=== PATIENT | female | born 1945 | race Caucasian/White ===

== ENCOUNTER 2016-12-19 09:07 | Outpatient (CLI) ==
--- NOTE | 2016-12-19 10:14 | US ---
EXAM: Renal ultrasound HISTORY: Kidney function abnormal COMPARISON: 04/11/2013 TECHNIQUE: Renal ultrasound was performed FINDINGS: Right kidney measures 4.9 x 5.0 x 10.5 cm. Left kidney measures 3.5 x 5.0 x 10.0 cm. Re nal cortical echogenicity is increased with bilateral renal cortical thinning. No hydronephrosis or renal calculus large enough to cause acoustic shadowing. Bladder is only mildly distended and poor ly evaluated, grossly unremarkable. IMPRESSION: 1. No hydronephrosis. 2. Medical renal disease.
== END 2016-12-19 09:08 | disposition home or self-care (01) ==
LOC: RAD 09:07
PROVIDERS: ATTEND Family Medicine
DX: N28.9 Disorder of kidney and ureter, unspecified (principal)
CPT/HCPCS: 76770

== ENCOUNTER 2017-07-20 11:30 | Outpatient (CLI) ==
--- NOTE | 2017-07-20 12:40 | CT ---
EXAM: CT abdomen pelvis without contrast HISTORY: Generalized abdominal pain, renal stone protocol COMPARISON: None TECHNIQUE: CT abdomen pelvis performed without intravenous contrast. Coronal and sagittal reformatt ed images obtained. FINDINGS: There is a 2 mm pulmonary nodule right lung base image 12 unchanged from 2013, consistent with benign etiology. No free air. No acute abnormalities of the bones. Degenerative change in the spine. Mild to moderate leftward curvature of the thoracolumbar spine. There are mild endplate dep ressions of the superior endplate of T11 and T12 with chronic features suggested. Heart normal in si ze. Evaluation organ parenchyma limited without contrast. Liver unremarkable. Patient status post cholecystectomy. Pancreas unremarkable. Spleen unremarkable. Adrenals unremarkable. No hydronephr osis or nephrolithiasis. No calculi visualized in the normal course of the ureters. Bladder decompr essed and poorly evaluated. Patient status post hysterectomy. Aorta normal in caliber. Moderate ath erosclerosis. Small fat-containing umbilical hernia. Moderate hiatal hernia. Duodenal diverticulum . No dilated loops small bowel. Appendix appears normal. Mild colonic diverticulosis. No lymphad enopathy in the or ascites. Small to moderate fat-containing inguinal hernias, right greater than lef t. No inflammatory stranding identified in the abdomen or pelvis IMPRESSION: 1. No hydronephrosis or nephrolithiasis. No acute inflammatory process identified in the abdomen pe lvis. 2. Mild colonic diverticulosis. Duodenal diverticulum. 3. Moderate hiatal hernia
== END 2017-07-20 11:31 | disposition home or self-care (01) ==
LOC: RAD 11:30
PROVIDERS: ATTEND Family Medicine
DX: R10.84 Generalized abdominal pain (principal)

== ENCOUNTER 2021-11-10 13:39 | Inpatient (IN) ==
[2021-11-10] MEDS ORDERED: ROCEPHIN 1 GM VIAL 1 GM in SODIUM CHLORIDE 100ML 100 ML IV STA (14:22)
[2021-11-10] MEDS ORDERED: CATAPRES PO ONE ×2 (14:22→18:59)
[2021-11-10 14:40] LABS: BASOPHILS % (AUTO) 0.4 % (0.0-3.0); EOSINOPHILS # (AUTO) 0.5 K/ul (0.0-0.7); EOSINOPHILS % (AUTO) 5.3 % (0.0-7.0); HEMATOCRIT 39.1 % (37.0-47.0); HEMOGLOBIN 12.6 g/dl (12.0-16.0); IMMATURE GRANULOCYTE % (AUTO) 0.5 % (0.0-5.0); LYMPHOCYTES # (AUTO) 2.7 K/uL (0.60-3.4); LYMPHOCYTES % (AUTO) 31.6 (10.0-50.0); MEAN CORPUSCULAR HEMOGLOBIN 27.9 pg (27.0-31.0); MEAN CORPUSCULAR HGB CONC 32.2 (31.8-35.4); MEAN CORPUSCULAR VOLUME 86.5 fl (81.0-99.0); MONOCYTES # (AUTO) 0.5 K/uL (0.4-2.0); NEUTROPHILS # (AUTO) 4.8 K/ul (2.0-6.9); NEUTROPHILS % (AUTO) 56.2 % (42.2-75.2); PLATELET COUNT 277 10^3/uL (140-440); RDW COEFFICIENT OF VARIATION 13.8 % (11.6-14.8); RED BLOOD COUNT 4.52 10^6/ul (4.20-5.40); WHITE BLOOD COUNT 8.55 K/ul (4.6-10.2)
[2021-11-10 14:46] LABS: ALANINE AMINOTRANSFERASE 18.6 U/L (0-35); ALBUMIN 3.76 g/dL (3.5-5.0); ALKALINE PHOSPHATASE 130.9 U/L (53-141); ASPARTATE AMINO TRANSFERASE 29.6 U/L (14-36); BILIRUBIN,TOTAL 0.98 mg/dL (0.2-1.3); BLOOD UREA NITROGEN 12.7 mg/dL (7-17); CALCIUM 9.89 mg/dL (8.4-10.2); CARBON DIOXIDE 26.3 mmol/L (22-30.0); CREATININE 1.07 mg/dL (0.60-1.30); GLUCOSE 131.9 mg/dL (74-106); POTASSIUM 4.08 mmol/L (3.5-5.1); SODIUM 138.2 mmol/L (134.5-145); TOTAL PROTEIN 6.49 g/dL (6.3-8.2)
[2021-11-10 14:58] LABS: TROPONIN I < 0.012 ng/ml (0.0000-0.120)
--- NOTE | 2021-11-10 15:17 | DI ---
EXAM: CHEST FRONTAL VIEW HISTORY: Chest pain COMPARISON: 08/23/2021 FINDINGS: Cardiomegaly is suggested. There is at least mild atherosclerotic disease. No acute infi ltrates are seen. No vascular congestion. There is no consolidation, visible pleural fluid or pneum othorax. Bones reveal no acute abnormality. IMPRESSION: Cardiomegaly. Atherosclerotic disease. No acute cardiopulmonary process.
--- NOTE | 2021-11-10 15:27 | CT ---
EXAM: Brain CT without contrast 11/10/2021 INDICATION: Altered mental status. COMPARISON: Brain CT dated 08/21/2021. TECHNIQUE: Unenhanced CT of the head was performed from the skull base to the vertex. FINDINGS: No intracranial hemorrhage or extra-axial collection. No mass, mass effect or midline shift. The begum -white matter differentiation is preserved. The ventricles are normal in size. There is moderate c erebral parenchymal volume loss. The basal cisterns are patent. The visualized paranasal sinuses an d mastoid air cells are clear. The orbits are unremarkable. The visualized osseous structures are u nremarkable. IMPRESSION: 1. No acute intracranial findings. 2. Moderate cerebral atrophy. All CT scans are performed using dose optimization techniques as appropriate to the performed exam an d include at least one of the following: Automated exposure control, adjustment of the mA and/or kV according t o size, and the use of iterative reconstruction technique.
[2021-11-10] MEDS ORDERED: ROCEPHIN 1 GM VIAL ONE (15:48)
[2021-11-10 15:53] LABS: BILIRUBIN,URINE Negative (NEGATIVE); CLARITY,URINE Clear (CLEAR); COLOR,URINE Yellow (YELLOW); GLUCOSE, URINE (UA) Negative (NEGATIVE); KETONES,URINE 1+ (NEGATIVE); LEUKOCYTE ESTERASE ,URINE Negative (NEGATIVE); NITRITE,URINE Negative (NEGATIVE); PH,URINE 8.5 (5-9); PROTEIN,URINE Negative (NEGATIVE); URINE, BLOOD Negative (NEGATIVE); UROBILINOGEN,URINE 0.2 (0.2)
[2021-11-10] MEDS ORDERED: ATIVAN IVP ONE ×2 (15:54→18:17)
[2021-11-10] MEDS ORDERED: TYLENOL PO PRN (16:41)
[2021-11-10] MEDS ORDERED: URO-JET MUCOUSMEMB STA (16:45)
[2021-11-10] MEDS ORDERED: LASIX TAB PO PRN (16:48)
[2021-11-10] MEDS ORDERED: HUMALOG SUBCUT SCH (17:00)
[2021-11-10] MEDS: COREG PO SCH (17:40)
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
[2021-11-10 20:16] VITALS: BMI 36.0
[2021-11-10] MEDS ORDERED: MORPHINE 2 MG/ML VIAL IVP ONE (20:39)
[2021-11-10] MEDS ORDERED: ZOFRAN 4 MG/2 ML IVP ONE (20:40)
[2021-11-10] MEDS ORDERED: NON-FORMULARY MEDICATION (Insulin Glargine 100 unit/mL Cartridge) SUBCUT SCH (21:00)
[2021-11-10] MEDS ORDERED: NEURONTIN PO SCH (21:00)
[2021-11-10] MEDS ORDERED: NON-FORMULARY MEDICATION (Gabapentin 300 mg Tablet) PO SCH (21:00)
[2021-11-10] MEDS: PLETAL PO SCH (21:03)
[2021-11-10] MEDS: LANTUS SUBCUT SCH (21:29)
[2021-11-11] MEDS ORDERED: LASIX TAB PO PRN (02:51)
[2021-11-11] MEDS ORDERED: HUMALOG SUBCUT SCH (02:52)
[2021-11-11] MEDS ORDERED: ATIVAN IVP STA ×3 (03:22→21:08)
[2021-11-11 05:56] LABS: BASOPHILS # (AUTO) 0.1 K/uL (0-0.2); BASOPHILS % (AUTO) 0.5 % (0.0-3.0); EOSINOPHILS # (AUTO) 0.5 K/ul (0.0-0.7); EOSINOPHILS % (AUTO) 4.7 % (0.0-7.0); HEMATOCRIT 37.2 % (37.0-47.0); HEMOGLOBIN 11.7 g/dl (12.0-16.0); IMMATURE GRANULOCYTE % (AUTO) 0.4 % (0.0-5.0); LYMPHOCYTES # (AUTO) 2.4 K/uL (0.60-3.4); LYMPHOCYTES % (AUTO) 25.3 (10.0-50.0); MEAN CORPUSCULAR HEMOGLOBIN 27.9 pg (27.0-31.0); MEAN CORPUSCULAR HGB CONC 31.5 (31.8-35.4); MEAN CORPUSCULAR VOLUME 88.8 fl (81.0-99.0); NEUTROPHILS # (AUTO) 5.6 K/ul (2.0-6.9); NEUTROPHILS % (AUTO) 59.1 % (42.2-75.2); PLATELET COUNT 223 10^3/uL (140-440); RDW COEFFICIENT OF VARIATION 13.9 % (11.6-14.8); RED BLOOD COUNT 4.19 10^6/ul (4.20-5.40); WHITE BLOOD COUNT 9.49 K/ul (4.6-10.2)
[2021-11-11 06:09] LABS: ALANINE AMINOTRANSFERASE 13.4 U/L (0-35); ALBUMIN 3.08 g/dL (3.5-5.0); ALKALINE PHOSPHATASE 95.3 U/L (53-141); ASPARTATE AMINO TRANSFERASE 21.2 U/L (14-36); BILIRUBIN,TOTAL 0.72 mg/dL (0.2-1.3); BLOOD UREA NITROGEN 12.9 mg/dL (7-17); CALCIUM 9.2 mg/dL (8.4-10.2); CARBON DIOXIDE 22.9 mmol/L (22-30.0); CHLORIDE 110.2 mmol/L (98-107); GLUCOSE 87.1 mg/dL (74-106); POTASSIUM 3.79 mmol/L (3.5-5.1); SODIUM 139.6 mmol/L (134.5-145); TOTAL PROTEIN 5.35 g/dL (6.3-8.2)
[2021-11-11] MEDS: PROTONIX PO SCH (06:36)
[2021-11-11] MEDS: SYNTHROID PO SCH (07:09)
[2021-11-11] MEDS: ATIVAN IVP PRN ×2 (07:52→18:23)
[2021-11-11] MEDS ORDERED: LANTUS SUBCUT SCH (09:00)
[2021-11-11] MEDS ORDERED: NON-FORMULARY MEDICATION (Aspirin 81 mg Tablet) PO SCH (09:00)
[2021-11-11] MEDS ORDERED: NON-FORMULARY MEDICATION (Insulin Glargine 100 unit/mL Cartridge) SUBCUT SCH (09:00)
[2021-11-11] MEDS ORDERED: NON-FORMULARY MEDICATION (Cholecalciferol (Vitamin D3) [Vitamin D3] 50 mcg (2,000 unit) Ca PO SCH (09:00)
[2021-11-11] MEDS ORDERED: ROCEPHIN 1 GM/50 ML D5W 1 GM/50 ML BAG IV SCH (09:00)
[2021-11-11] MEDS: ROCEPHIN 1 GM VIAL 1 GM in SODIUM CHLORIDE 100ML 100 ML IV SCH (09:04)
[2021-11-11] MEDS: NON-FORMULARY MEDICATION (Calcium-Magnesium-Zinc 333-133-5 mg Tablet) PO SCH (10:02)
[2021-11-11] MEDS: COREG PO SCH ×2 (10:02→17:16)
[2021-11-11] MEDS: ASPIRIN EC PO SCH (10:02)
[2021-11-11] MEDS: DITROPAN PO SCH (10:03)
[2021-11-11] MEDS: PLETAL PO SCH ×2 (10:05→21:14)
[2021-11-11] MEDS: NEURONTIN PO SCH ×4 (10:05→21:14)
[2021-11-11] MEDS: VITAMIN D PO SCH (10:06)
[2021-11-11] MEDS: SODIUM CHLORIDE 1,000 ML IV SCH ×2 (10:18→17:37)
[2021-11-11] MEDS: APRESOLINE PO SCH ×2 (14:36→14:42)
[2021-11-11] MEDS ORDERED: HALDOL IVP ONE (15:47)
[2021-11-11] MEDS: HYDRALAZINE HCL IVP SCH ×2 (16:13→20:34)
[2021-11-11] MEDS: DEXTROSE 5%-WATER IV SOLN 1,000 ML IV SCH (19:09)
[2021-11-11] MEDS ORDERED: GEODON IM STA (21:08)
[2021-11-11] MEDS: ELAVIL PO SCH (21:14)
[2021-11-11] MEDS: LANTUS SUBCUT SCH (21:14)
[2021-11-12] MEDS: DEXTROSE 5%-WATER IV SOLN 1,000 ML IV SCH ×3 (03:32→20:10)
[2021-11-12] MEDS: ATIVAN IVP PRN ×2 (05:16→19:22)
[2021-11-12] MEDS: PROTONIX PO SCH (05:58)
[2021-11-12] MEDS: SYNTHROID PO SCH (05:58)
[2021-11-12 06:14] LABS: BASOPHILS % (AUTO) 0.4 % (0.0-3.0); EOSINOPHILS # (AUTO) 0.3 K/ul (0.0-0.7); EOSINOPHILS % (AUTO) 3.2 % (0.0-7.0); HEMATOCRIT 37.8 % (37.0-47.0); HEMOGLOBIN 12.5 g/dl (12.0-16.0); IMMATURE GRANULOCYTE % (AUTO) 0.5 % (0.0-5.0); LYMPHOCYTES # (AUTO) 1.7 K/uL (0.60-3.4); LYMPHOCYTES % (AUTO) 20.5 (10.0-50.0); MEAN CORPUSCULAR HEMOGLOBIN 28.2 pg (27.0-31.0); MEAN CORPUSCULAR HGB CONC 33.1 (31.8-35.4); MEAN CORPUSCULAR VOLUME 85.1 fl (81.0-99.0); MONOCYTES # (AUTO) 0.7 K/uL (0.4-2.0); MONOCYTES % (AUTO) 8.9 (0-10); NEUTROPHILS # (AUTO) 5.5 K/ul (2.0-6.9); NEUTROPHILS % (AUTO) 66.5 % (42.2-75.2); PLATELET COUNT 228 10^3/uL (140-440); RDW COEFFICIENT OF VARIATION 13.6 % (11.6-14.8); RED BLOOD COUNT 4.44 10^6/ul (4.20-5.40)
[2021-11-12 06:26] LABS: ALANINE AMINOTRANSFERASE 13.9 U/L (0-35); ALBUMIN 3.51 g/dL (3.5-5.0); ALKALINE PHOSPHATASE 98.3 U/L (53-141); BILIRUBIN,TOTAL 1.27 mg/dL (0.2-1.3); BLOOD UREA NITROGEN 7.4 mg/dL (7-17); CALCIUM 8.63 mg/dL (8.4-10.2); CARBON DIOXIDE 18.7 mmol/L (22-30.0); CHLORIDE 104.8 mmol/L (98-107); CREATININE 0.71 mg/dL (0.60-1.30); GLUCOSE 237.5 mg/dL (74-106); POTASSIUM 3.58 mmol/L (3.5-5.1); SODIUM 133.5 mmol/L (134.5-145); TOTAL PROTEIN 5.9 g/dL (6.3-8.2)
[2021-11-12] MEDS: HUMALOG SUBCUT PRN ×4 (08:50→20:23)
[2021-11-12] MEDS: HYDRALAZINE HCL IVP SCH ×2 (08:51→20:40)
[2021-11-12] MEDS: ROCEPHIN 1 GM VIAL 1 GM in SODIUM CHLORIDE 100ML 100 ML IV SCH (08:51)
[2021-11-12] MEDS: ASPIRIN EC PO SCH (10:34)
[2021-11-12] MEDS: NEURONTIN PO SCH ×3 (10:34→21:00)
[2021-11-12] MEDS: DITROPAN PO SCH (10:35)
[2021-11-12] MEDS: COREG PO SCH ×2 (10:35→16:26)
[2021-11-12] MEDS: NON-FORMULARY MEDICATION (Calcium-Magnesium-Zinc 333-133-5 mg Tablet) PO SCH (10:35)
[2021-11-12] MEDS: PLETAL PO SCH ×2 (10:36→21:00)
[2021-11-12] MEDS: VITAMIN D PO SCH (10:39)
--- NOTE | 2021-11-12 12:19 | PCM.PROG ---
Date Seen by Provider: 11/12/21 Subjective: pt treated w/ geodon for agitation last night, is awake and sedate today, poor historian, hx htn, not eating Objective: Vitals: T=98.3 F, P=83, R=18, AX=993/70, SPO2=97 HEENT: []eomi Neck: []supple Lungs: [] clear CVS: []RRR Abdomen: []nontender Extremities: []warm and dry Neurological: []uncooperative Skin: []normal color Lab/Tests/Diagnostic Imaging: [] Plan: will continue iv D5W maintenance, monitor blood pressure, continue Rocephin for uti, anticipate NH placement care to Dr Godwin at 19:00
[2021-11-12] MEDS: ELAVIL PO SCH (21:00)
[2021-11-12] MEDS ORDERED: GEODON IM STA (22:07)
--- NOTE | 2021-11-12 22:15 | PCM.PROG ---
Date Seen by Provider: 11/11/21 Time Seen by Provider: 08:20 Subjective: Patient admitted by Dr weinberg for altered mental status. Previous UA suspicious for uti R/o urosepsis Discussed at bedside Objective: Vitals: T=98.8 F, P=78, R=20, ZO=650/88, SPO2=95 HEENT: Clear, RAMANDEEP-A Neck: supple Lungs: CTA-AF CVS: HRRR Abdomen: Soft nontender, neg flank or suprapubic tenderness Extremities: neg edema Neurologica_altered . non focused [] Skin: [] Lab/Tests/Diagnostic Imaging: [] (1) Altered mental status: Status: Acute Code(s): R41.82 - Altered mental status, unspecified SNOMED Code(s): 724707970 (2) UTI (urinary tract infection): Status: Acute Code(s): N39.0 - Urinary tract infection, site not specified SNOMED Code(s): 97352139 Plan: Continue Current therapy lll
[2021-11-13] MEDS ORDERED: HYDRALAZINE HCL IVP STA (00:07)
[2021-11-13] MEDS: COREG PO ONE ×2 (01:06→01:17)
[2021-11-13] MEDS ORDERED: GEODON IM STA (01:48)
[2021-11-13] MEDS: D5%-1/2NS-KCL 20 MEQ/L IV SOL 1,000 ML IV SCH ×2 (02:24→16:36)
[2021-11-13] MEDS: SYNTHROID PO SCH (05:42)
[2021-11-13] MEDS: PROTONIX PO SCH (05:42)
[2021-11-13 06:19] LABS: BASOPHILS % (AUTO) 0.5 % (0.0-3.0); HEMOGLOBIN 12.8 g/dl (12.0-16.0); IMMATURE GRANULOCYTE % (AUTO) 0.5 % (0.0-5.0); LYMPHOCYTES # (AUTO) 2.3 K/uL (0.60-3.4); MEAN CORPUSCULAR HEMOGLOBIN 28.3 pg (27.0-31.0); MEAN CORPUSCULAR HGB CONC 33.7 (31.8-35.4); MEAN CORPUSCULAR VOLUME 83.9 fl (81.0-99.0); MONOCYTES % (AUTO) 11.6 (0-10); NEUTROPHILS # (AUTO) 5.2 K/ul (2.0-6.9); NEUTROPHILS % (AUTO) 60.4 % (42.2-75.2); PLATELET COUNT 254 10^3/uL (140-440); RDW COEFFICIENT OF VARIATION 13.8 % (11.6-14.8); RED BLOOD COUNT 4.53 10^6/ul (4.20-5.40); WHITE BLOOD COUNT 8.57 K/ul (4.6-10.2)
[2021-11-13 06:31] LABS: ALANINE AMINOTRANSFERASE 13.5 U/L (0-35); ALBUMIN 3.4 g/dL (3.5-5.0); ALKALINE PHOSPHATASE 100.1 U/L (53-141); ASPARTATE AMINO TRANSFERASE 19.9 U/L (14-36); BILIRUBIN,TOTAL 0.85 mg/dL (0.2-1.3); BLOOD UREA NITROGEN 5.7 mg/dL (7-17); CALCIUM 8.97 mg/dL (8.4-10.2); CARBON DIOXIDE 22.3 mmol/L (22-30.0); CHLORIDE 106.6 mmol/L (98-107); CREATININE 0.7 mg/dL (0.60-1.30); GLUCOSE 317.9 mg/dL (74-106); POTASSIUM 3.68 mmol/L (3.5-5.1); TOTAL PROTEIN 6.01 g/dL (6.3-8.2)
[2021-11-13] MEDS: HUMALOG SUBCUT PRN ×4 (06:40→20:21)
[2021-11-13] MEDS: ROCEPHIN 1 GM/50 ML D5W 1 GM/50 ML BAG IV SCH (08:20)
[2021-11-13] MEDS: HYDRALAZINE HCL IVP SCH ×2 (08:23→20:21)
[2021-11-13] MEDS: ASPIRIN EC PO SCH (08:34)
[2021-11-13] MEDS: NON-FORMULARY MEDICATION (Calcium-Magnesium-Zinc 333-133-5 mg Tablet) PO SCH (08:35)
[2021-11-13] MEDS: COREG PO SCH ×2 (08:35→17:02)
[2021-11-13] MEDS: NEURONTIN PO SCH ×3 (08:36→20:50)
[2021-11-13] MEDS: DITROPAN PO SCH (08:36)
[2021-11-13] MEDS: PLETAL PO SCH ×2 (08:37→20:50)
[2021-11-13] MEDS: VITAMIN D PO SCH (08:37)
[2021-11-13] MEDS: ATIVAN IVP PRN ×3 (09:20→21:24)
[2021-11-13 17:00] LABS: BILIRUBIN,URINE Negative (NEGATIVE); CLARITY,URINE Clear (CLEAR); COLOR,URINE Yellow (YELLOW); GLUCOSE, URINE (UA) Negative (NEGATIVE); KETONES,URINE 3+ (NEGATIVE); LEUKOCYTE ESTERASE ,URINE 1+ (NEGATIVE); NITRITE,URINE Negative (NEGATIVE); PROTEIN,URINE 1+ (NEGATIVE); URINE, BLOOD Trace-intact (NEGATIVE); UROBILINOGEN,URINE 0.2 (0.2)
[2021-11-13 17:14] LABS: URINE RBC, MICROSCOPIC 0-2 (0-2)
[2021-11-13] MEDS: ELAVIL PO SCH (20:49)
[2021-11-13] MEDS ORDERED: PROTONIX IV IVP STA (20:56)
[2021-11-14 05:15] LABS: BASOPHILS % (AUTO) 0.4 % (0.0-3.0); EOSINOPHILS # (AUTO) 0.5 K/ul (0.0-0.7); EOSINOPHILS % (AUTO) 5.5 % (0.0-7.0); HEMATOCRIT 37.3 % (37.0-47.0); HEMOGLOBIN 12.1 g/dl (12.0-16.0); IMMATURE GRANULOCYTE # (AUTO) 0.1 (0.0-1.0); IMMATURE GRANULOCYTE % (AUTO) 0.5 % (0.0-5.0); LYMPHOCYTES # (AUTO) 2.9 K/uL (0.60-3.4); MEAN CORPUSCULAR HEMOGLOBIN 27.9 pg (27.0-31.0); MEAN CORPUSCULAR HGB CONC 32.4 (31.8-35.4); MEAN CORPUSCULAR VOLUME 86.1 fl (81.0-99.0); MONOCYTES # (AUTO) 1.1 K/uL (0.4-2.0); MONOCYTES % (AUTO) 11.4 (0-10); NEUTROPHILS # (AUTO) 4.8 K/ul (2.0-6.9); NEUTROPHILS % (AUTO) 51.2 % (42.2-75.2); PLATELET COUNT 252 10^3/uL (140-440); RDW COEFFICIENT OF VARIATION 14.1 % (11.6-14.8); RED BLOOD COUNT 4.33 10^6/ul (4.20-5.40); WHITE BLOOD COUNT 9.41 K/ul (4.6-10.2)
[2021-11-14] MEDS ORDERED: TORADOL IVP PRN (05:22)
[2021-11-14] MEDS: PROTONIX PO SCH (05:41)
[2021-11-14] MEDS: SYNTHROID PO SCH (05:41)
[2021-11-14] MEDS: ATIVAN IVP PRN ×3 (06:19→20:58)
[2021-11-14] MEDS: D5%-1/2NS-KCL 20 MEQ/L IV SOL 1,000 ML IV SCH (06:23)
[2021-11-14] MEDS: HUMALOG SUBCUT PRN ×3 (06:35→21:33)
[2021-11-14] MEDS: ASPIRIN EC PO SCH (09:45)
[2021-11-14] MEDS: HYDRALAZINE HCL IVP SCH ×2 (09:45→20:23)
[2021-11-14] MEDS: PROTONIX IV IVP SCH (09:45)
[2021-11-14] MEDS: PLETAL PO SCH ×2 (09:46→20:24)
[2021-11-14] MEDS: DITROPAN PO SCH (09:46)
[2021-11-14] MEDS: NEURONTIN PO SCH ×3 (09:46→20:24)
[2021-11-14] MEDS: VITAMIN D PO SCH (09:46)
[2021-11-14] MEDS: NON-FORMULARY MEDICATION (Calcium-Magnesium-Zinc 333-133-5 mg Tablet) PO SCH (09:46)
[2021-11-14] MEDS: COREG PO SCH ×2 (09:46→17:52)
[2021-11-14] MEDS: ROCEPHIN 1 GM/50 ML D5W 1 GM/50 ML BAG IV SCH (09:47)
--- NOTE | 2021-11-14 15:50 | PCM.PROG ---
Date Seen by Provider: 11/14/21 Time Seen by Provider: 14:10 Subjective: Nursing reports patient with decrease urinary output Not significant change in condition/ EVALUATED AT BEDSIDE EARLIER. PT AWAKE, DOES NOT FOLOW INSTRUCTION S Objective: Vitals: T=97.4 F, P=81, R=24, VN=688/93, PRH8=901 HEENT: cLEAR Neck: SUPPLE Lungs: cta CVS: HR RRR Abdomen: SOFT NON TENDER Extremities: MINIMAL MIKE ]A Neurological: AWAKE, RESPONSIVE TO STARTLED REFLEX Skin: NEG Lab/Tests/Diagnostic Imaging: [] (1) Altered mental status: Status: Acute Code(s): R41.82 - Altered mental status, unspecified SNOMED Code(s): 898664794 (2) UTI (urinary tract infection): Status: Acute Code(s): N39.0 - Urinary tract infection, site not specified SNOMED Code(s): 75523582 Plan: Contiue IV fluids. Meds for BP control and changes in mental status Discharge planning
[2021-11-14] MEDS ORDERED: SODIUM CHLORIDE 1,000 ML IV SCH (16:00)
[2021-11-14 16:16] LABS: ALANINE AMINOTRANSFERASE 14.4 U/L (0-35); ALBUMIN 3.32 g/dL (3.5-5.0); ALKALINE PHOSPHATASE 94.8 U/L (53-141); ASPARTATE AMINO TRANSFERASE 19.4 U/L (14-36); BILIRUBIN,TOTAL 0.67 mg/dL (0.2-1.3); CALCIUM 8.94 mg/dL (8.4-10.2); CHLORIDE 106.5 mmol/L (98-107); CREATININE 1.06 mg/dL (0.60-1.30); GLUCOSE 290.7 mg/dL (74-106); POTASSIUM 4.11 mmol/L (3.5-5.1); SODIUM 134.8 mmol/L (134.5-145); TOTAL PROTEIN 5.94 g/dL (6.3-8.2)
[2021-11-14] MEDS ORDERED: MORPHINE 4 MG/ML SYRINGE IVP ONE (16:45)
[2021-11-14] MEDS ORDERED: MORPHINE 2 MG/ML VIAL IVP ONE (17:30)
[2021-11-14] MEDS ORDERED: APRESOLINE PO STA (18:45)
--- NOTE | 2021-11-14 19:53 | PCM.PROG ---
Date Seen by Provider: 11/14/21 Time Seen by Provider: 17:00 Subjective: Patient awake and responsive to questioning. Inquired about her and actually requested to speak to him on the phone. Objective: Vitals: T=97.4 F, P=81, R=24, EF=264/78, CWJ4=783 HEENT: Clear. PERL_A, EOM-I Neck: supple, non tender Lungs: CTA-AF CVS: HRRRR Abdomen: Soft non tender Extremities: actively moves X4 Neurological: alert oriented to self. ask what happened to me, Seems unsure of her current location Skin: [] Lab/Tests/Diagnostic Imaging: reviewed on chart (1) Altered mental status: Status: Acute Code(s): R41.82 - Altered mental status, unspecified SNOMED Code(s): 889860839 Assessment: Suspected due to UTI. Exam reveals No focal deficit of motor function (2) UTI (urinary tract infection): Status: Acute Code(s): N39.0 - Urinary tract infection, site not specified SNOMED Code(s): 70297662 Plan: Noted poor urine output today, gave IV bolus NS; to monitor I/O, Encouraged po intake Lab in AM Called and she took the phone wood type finisher and spoke with him
[2021-11-14] MEDS: ELAVIL PO SCH (20:23)
[2021-11-14] MEDS ORDERED: LOPRESSOR ONE (20:52)
[2021-11-14] MEDS ORDERED: TYLENOL RC ONE (20:52)
[2021-11-14] MEDS: TYLENOL RC PRN (20:58)
[2021-11-14] MEDS ORDERED: LOPRESSOR IVP SCH (21:00)
[2021-11-14] MEDS ORDERED: HYDRALAZINE HCL IVP ONE (22:32)
--- NOTE | 2021-11-15 01:02 | PCM.PROG ---
Date Seen by Provider: 11/15/21 Time Seen by Provider: 00:35 Subjective: RN requested exam for further orders as recent fluid bolus previously ordered completed. Objective: Vitals: T=98.3 F, P=82, R=20, UU=840/79, SPO2=97 HEENT: eyes full motion / following / no icterus / pupils equal ,face symmetric, mouth dry, scalp non tender no nystagmus ] Neck: [supple no adenopathy nor thyroid enlargement no bruits no rigidity or pain to palpation ] Lungs: [clear bilaterally no additional abnormal sounds no retractions ] CVS: [RRR no murmur ] Abdomen: [obese / soft / nontender /BS diminished and present ] Extremities: [from upper and lower no edema warm no rash bilateral heel wraps present toes warm and normal color ] Neurological: [she follows and moves extemities but does not answer questions , repeats phrases no stammering no slurred speech no apparent facial grimacing or pain visible ] Skin: [no tenting / no rash Currently has on bilateral heel wraps RN reports no buttocks skin changes Pt admitted with black dry discoloration left heel and stage 1 right heel ] Lab/Tests/Diagnostic Imaging: [ all reviewed from admit Imaging - cardiomegaly and brain atrophy CBC good , electolytes good , no elevated ammonia , lactic normalized , TSH 5 with nl Free T 4 ] (1) Altered mental status: Status: Acute Code(s): R41.82 - Altered mental status, unspecified SNOMED Code(s): 748698221 (2) UTI (urinary tract infection): Status: Acute Code(s): N39.0 - Urinary tract infection, site not specified SNOMED Code(s): 83820110 Assessment: Hypertension Diabeted insulin dependent Bilateral heel ulcers - present on admission hypothyroid Plan: 1.D5W1/2 ns plus 20mEq kcl at 100mgl/ hr ( D5 as pt not voluntarily taking po ) 2 Am lab : CBC, CMP, BNP, Mag ,,lipids ,hgA1C, Covid ( not send out ) 3 Urine C&S tonight - pt has rizzo 4 enoxeparin 40mg sq q 24 hrs starting now for DVT prophylaxis - no hx of bleeding, admit ct neg ) on IV pantoprazole for GI 5.Neuro checks with VS q shift 6.metoprolol tartrate 2.5 mg IV q 12 hrs - hold if bp less than 110 systolic and / or less than 60 diastolic or hr less than 60 7Hydralazine 10 mg IV q 6-8 hrs IVP for systolic greater than 150 / diastolic greater than 90 6 Consider in AM working with PCP to transfer the pt to facility with neurology for further specialty evaluation 7. If transfer delayed due to EMS and / or bed availability consider the following a. swallow study b.Bilateral carotid doppler c. CT head without : ( CTA brain and neck vs mri might be ordered - patient may need some sedation while in imaging which may need to be done at a higher level facility d. patient will need repeat covid test for transfer
[2021-11-15] MEDS: LOVENOX SUBCUT SCH (01:46)
[2021-11-15] MEDS: D5%-1/2NS-KCL 20 MEQ/L IV SOL 1,000 ML IV SCH ×4 (01:52→23:36)
[2021-11-15] MEDS ORDERED: INFUVITE ADULT 10 ML in D5%-1/2NS-KCL 20 MEQ/L IV SOL 1,000 ML IV SCH (02:00)
[2021-11-15 04:26] LABS: BASOPHILS % (AUTO) 0.5 % (0.0-3.0); EOSINOPHILS # (AUTO) 0.9 K/ul (0.0-0.7); EOSINOPHILS % (AUTO) 11.2 % (0.0-7.0); HEMATOCRIT 34.5 % (37.0-47.0); HEMOGLOBIN 11.4 g/dl (12.0-16.0); IMMATURE GRANULOCYTE # (AUTO) 0.1 (0.0-1.0); IMMATURE GRANULOCYTE % (AUTO) 0.7 % (0.0-5.0); LYMPHOCYTES # (AUTO) 2.4 K/uL (0.60-3.4); LYMPHOCYTES % (AUTO) 29.5 (10.0-50.0); MEAN CORPUSCULAR HEMOGLOBIN 28.6 pg (27.0-31.0); MEAN CORPUSCULAR VOLUME 86.5 fl (81.0-99.0); MONOCYTES # (AUTO) 0.9 K/uL (0.4-2.0); MONOCYTES % (AUTO) 11.5 (0-10); NEUTROPHILS # (AUTO) 3.7 K/ul (2.0-6.9); NEUTROPHILS % (AUTO) 46.6 % (42.2-75.2); PLATELET COUNT 239 10^3/uL (140-440); RED BLOOD COUNT 3.99 10^6/ul (4.20-5.40); WHITE BLOOD COUNT 8.03 K/ul (4.6-10.2)
[2021-11-15 04:36] LABS: ALANINE AMINOTRANSFERASE 12.2 U/L (0-35); ALBUMIN 3.04 g/dL (3.5-5.0); ALKALINE PHOSPHATASE 78.9 U/L (53-141); ASPARTATE AMINO TRANSFERASE 21.1 U/L (14-36); BILIRUBIN,TOTAL 0.66 mg/dL (0.2-1.3); BLOOD UREA NITROGEN 10.4 mg/dL (7-17); CALCIUM 8.45 mg/dL (8.4-10.2); CARBON DIOXIDE 18.7 mmol/L (22-30.0); CHLORIDE 110.1 mmol/L (98-107); CHOLESTEROL 169.3 mg/dL (0-200); CREATININE 0.81 mg/dL (0.60-1.30); GLUCOSE 225.6 mg/dL (74-106); TOTAL PROTEIN 5.54 g/dL (6.3-8.2)
[2021-11-15] MEDS: TYLENOL RC PRN (04:39)
[2021-11-15] MEDS: ATIVAN IVP PRN ×2 (04:54→12:42)
[2021-11-15] MEDS: HUMALOG SUBCUT PRN ×4 (04:58→20:23)
[2021-11-15] MEDS: SYNTHROID PO SCH (05:33)
[2021-11-15] MEDS ORDERED: LOPRESSOR IVP SCH (09:00)
[2021-11-15] MEDS ORDERED: GLYCERIN SUPPOSITORY RC ONE (09:00)
[2021-11-15] MEDS: NON-FORMULARY MEDICATION (Calcium-Magnesium-Zinc 333-133-5 mg Tablet) PO SCH (09:03)
[2021-11-15] MEDS: PLETAL PO SCH (09:03)
[2021-11-15] MEDS: NEURONTIN PO SCH ×3 (09:03→20:24)
[2021-11-15] MEDS: ASPIRIN EC PO SCH (09:03)
[2021-11-15] MEDS: VITAMIN D PO SCH (09:04)
[2021-11-15] MEDS: ROCEPHIN 1 GM/50 ML D5W 1 GM/50 ML BAG IV SCH (09:07)
[2021-11-15] MEDS: LOPRESSOR IVP SCH ×2 (09:56→20:21)
[2021-11-15] MEDS: PROTONIX IV IVP SCH (09:56)
--- NOTE | 2021-11-15 10:48 | PCM.PROG ---
Date Seen by Provider: 11/15/21 Time Seen by Provider: 08:00 Subjective: Patient resting in bed awake. Denies any pain. Unable to give more history. Not oriented but is able to answer only few question with yes or no answers. Objective: Vitals: T=97.2 F, P=82, R=20, SJ=733/71, SPO2=96 HEENT: [Mucus membranes moist, Has her own teeth] Neck: [supple] Lungs: [Clinically clear bilaterally ] CVS: [Regular S1 and S2 only No S3 and No Murmurs] Abdomen: [Soft and not tender to palpation.] Extremities: [No edema noted.] Neurological: [] Skin: [Heel ulcers see nursing notes and Picture taken for details] Lab/Tests/Diagnostic Imaging: Abnormal Lab Results 11/14/21 11/15/21 11/15/21 16:00 04:10 04:10 WBC 8.03 RBC 3.99 L Hgb 11.4 L Hct 34.5 L MCV 86.5 MCH 28.6 MCHC 33.0 RDW Coeff of Afua 14.0 Plt Count 239 Immature Gran % (Auto) 0.7 Neut % (Auto) 46.6 Lymph % (Auto) 29.5 [place] % (Auto) 11.5 H Eos % (Auto) 11.2 H Baso % (Auto) 0.5 Neut # (Auto) 3.7 Lymph # (Auto) 2.4 [place] # (Auto) 0.9 Eos # (Auto) 0.9 H Baso # (Auto) 0.0 Immature Gran # (Auto) 0.1 Sodium 134.8 135.0 Potassium 4.11 4.00 Chloride 106.5 110.1 H Carbon Dioxide 22.0 18.7 L Anion Gap 10.41 10.20 BUN 10.0 10.4 Creatinine 1.06 0.81 Estimated GFR (MDRD) 50.00 69.00 BUN/Creatinine Ratio 9.43 12.83 Glucose 290.7 H 225.6 H D Hemoglobin A1c Calcium 8.94 8.45 Total Bilirubin 0.67 0.66 AST 19.4 21.1 ALT 14.4 12.2 Alkaline Phosphatase 94.8 78.9 NT-Pro-B Natriuret Pep 485.000 H Total Protein 5.94 L 5.54 L Albumin 3.32 L 3.04 L Globulin 2.62 2.50 Albumin/Globulin Ratio 1.26 1.21 Triglycerides 174.0 H Cholesterol 169.3 LDL Cholesterol, Calc 109 VLDL Cholesterol 35 H HDL Cholesterol 26.0 L Cholesterol/HDL Ratio 6.5 H 11/15/21 04:10 WBC RBC Hgb Hct MCV MCH MCHC RDW Coeff of Afua Plt Count Immature Gran % (Auto) Neut % (Auto) Lymph % (Auto) [place] % (Auto) Eos % (Auto) Baso % (Auto) Neut # (Auto) Lymph # (Auto) [place] # (Auto) Eos # (Auto) Baso # (Auto) Immature Gran # (Auto) Sodium Potassium Chloride Carbon Dioxide Anion Gap BUN Creatinine Estimated GFR (MDRD) BUN/Creatinine Ratio Glucose Hemoglobin A1c 7.06 H Calcium Total Bilirubin AST ALT Alkaline Phosphatase NT-Pro-B Natriuret Pep Total Protein Albumin Globulin Albumin/Globulin Ratio Triglycerides Cholesterol LDL Cholesterol, Calc VLDL Cholesterol HDL Cholesterol Cholesterol/HDL Ratio (1) Altered mental status: Status: Acute Code(s): R41.82 - Altered mental status, unspecified SNOMED Code(s): 948769798 Assessment: Work up has been negative so far. Likely has early Dementia due to recent Stroke with delirium Has been getting Ativan and Geodon to control some of her delirium Carotid US reviewed. since patient has no focal deficits she is unlikely to be a candidate for stent at this time especially given current mental state. (2) UTI (urinary tract infection): Status: Acute Code(s): N39.0 - Urinary tract infection, site not specified SNOMED Code(s): 23448166 Assessment: most recent Urine cultures was negative. Prior Culture on the had been positive for Klebsiella Pneumoniae Will get last dose of Rocephin today Discontinue Ludwig to prevent Ludwig acquired UTI. (3) Decubitus ulcer, heel: Status: Acute Code(s): L89.609 - Pressure ulcer of unspecified heel, unspecified stage SNOMED Code(s): 680538281 Assessment: Wound care to be provided with Collagenase on the left heel that has some slough and betadine on the right heel that is dry. Keep heels floated (4) Hypertension: Status: Acute Code(s): I10 - Essential (primary) hypertension SNOMED Code(s): 66314990 Assessment: Blood pressure controlled on current medications including Lopressor IV . Hopefully may state taking po medications. Plan: Discontinue Ludwig Discuss with son regarding discharge planning. Try one on one feeding due to poor po intake with out evidence of swallowing difficulty. Was able to swallow some water and orange luz. Will Try Mirtazapin for sleep and Apatite. Get patient out of bed daily and try to give one on one feeding. Give PRN Morphine prior to Transferring out of bed, Give PO or RC Scheduled Tylenol. 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
[2021-11-15] MEDS: TYLENOL RC SCH ×3 (11:59→23:36)
--- NOTE | 2021-11-15 12:00 | US ---
EXAM: Ultrasound bilateral carotid duplex HISTORY: Altered mental status COMPARISON: None TECHNIQUE: Sonographic and color Doppler evaluation of the carotids were performed. Garcia scale imag ing was also provided. Evaluation is difficult due to inability to stop moving. FINDINGS: The right carotid is patent in appearance with moderate atherosclerotic plaque visualized. The right ICA peak systolic velocity measures 137 cm/sec which is minimally elevated. The ICA / CCA peak systolic velocity ratio is 1.6 and ICA end-diastolic velocity is 14.5 cm/sec. The left carotid is patent in appearance with moderate atherosclerotic plaque visualized. The left ICA peak systolic velocity measures 97 cm/sec which is normal. The left ICA / CCA peak systolic velocity ratio is 0.7 and ICA end-diastolic velocity is 17.9 cm/sec. Vertebral arteries demonstrate antegrade flow bilaterally. Color Doppler and wave spectral evaluation are provided and are consistent with the areas of atherosc lerosis as described above. Garcia-scale imaging is unremarkable. IMPRESSION: 1. Calcific atherosclerotic disease of the right carotid artery with elevated velocities suggestive of moderate, 50 - 69% stenosis. 2. Atherosclerotic disease of the left carotid with no hemodynamically significant stenosis.
[2021-11-15] MEDS: TYLENOL PO ONE ×2 (12:06→13:44)
[2021-11-15] MEDS ORDERED: ZYPREXA IM ONE (14:16)
[2021-11-15] MEDS: HYDRALAZINE HCL IVP PRN (15:22)
[2021-11-15] MEDS: SANTYL TP SCH (15:22)
[2021-11-15] MEDS: MORPHINE 2 MG/ML VIAL IVP PRN (16:04)
[2021-11-15] MEDS ORDERED: MAGNESIUM SULFATE 1 GM/100 ML D5W 2 GM/200 ML BAG IV STA (17:08)
[2021-11-15] MEDS ORDERED: VASOTEC IV IVP STA (18:39)
[2021-11-15] MEDS ORDERED: MORPHINE 2 MG/ML VIAL IVP STA (18:39)
[2021-11-15] MEDS: SEROQUEL PO SCH (20:22)
[2021-11-16] MEDS: MORPHINE 2 MG/ML VIAL IVP PRN ×3 (00:03→18:11)
[2021-11-16] MEDS: ATIVAN IVP PRN ×3 (04:33→22:58)
[2021-11-16] MEDS: HYDRALAZINE HCL IVP PRN (04:33)
[2021-11-16] MEDS: TYLENOL RC SCH ×3 (05:37→18:10)
[2021-11-16] MEDS: SYNTHROID PO SCH (05:37)
[2021-11-16] MEDS: HUMALOG SUBCUT PRN ×4 (06:26→20:44)
[2021-11-16 06:58] LABS: BASOPHILS # (AUTO) 0.1 K/uL (0-0.2); BASOPHILS % (AUTO) 0.7 % (0.0-3.0); EOSINOPHILS # (AUTO) 0.8 K/ul (0.0-0.7); HEMATOCRIT 37.5 % (37.0-47.0); IMMATURE GRANULOCYTE % (AUTO) 0.6 % (0.0-5.0); LYMPHOCYTES % (AUTO) 28.7 (10.0-50.0); MEAN CORPUSCULAR HEMOGLOBIN 27.8 pg (27.0-31.0); MONOCYTES # (AUTO) 0.8 K/uL (0.4-2.0); MONOCYTES % (AUTO) 10.7 (0-10); NEUTROPHILS # (AUTO) 3.4 K/ul (2.0-6.9); NEUTROPHILS % (AUTO) 48.3 % (42.2-75.2); PLATELET COUNT 231 10^3/uL (140-440); RED BLOOD COUNT 4.31 10^6/ul (4.20-5.40); WHITE BLOOD COUNT 7.01 K/ul (4.6-10.2)
[2021-11-16 07:17] LABS: ALANINE AMINOTRANSFERASE 13.1 U/L (0-35); ALBUMIN 3.24 g/dL (3.5-5.0); ALKALINE PHOSPHATASE 90.2 U/L (53-141); BILIRUBIN,TOTAL 0.69 mg/dL (0.2-1.3); BLOOD UREA NITROGEN 7.3 mg/dL (7-17); CALCIUM 9.46 mg/dL (8.4-10.2); CARBON DIOXIDE 22.4 mmol/L (22-30.0); CHLORIDE 108.5 mmol/L (98-107); CREATININE 0.69 mg/dL (0.60-1.30); MAGNESIUM 1.38 mg/dL (1.6-2.3); POTASSIUM 4.5 mmol/L (3.5-5.1); SODIUM 136.1 mmol/L (134.5-145); TOTAL PROTEIN 5.58 g/dL (6.3-8.2)
--- NOTE | 2021-11-16 08:31 | PCM.PROG ---
Date Seen by Provider: 11/16/21 Time Seen by Provider: 08:30 Subjective: Follow up inpatient hospital care Has previousl had Carotic Duplex scan revealing:Calcific atherosclerotic disease of the right carotid artery with elevated velocities suggestive of moderate, 50 - 69% stenosis. 2. Atherosclerotic disease of the left carotid with no hemodynamically significant stenosis\. Objective: Vitals: T=98.3 F, P=92, R=18, BP=133/58, SPO2=97 HEENT: [] Neck: [] Lungs: [] CVS: [] Abdomen: [] Extremities: [] Neurological: [] Skin: [] Lab/Tests/Diagnostic Imaging: [] (1) Altered mental status: Status: Acute Code(s): R41.82 - Altered mental status, unspecified SNOMED Code(s): 794303949 (2) UTI (urinary tract infection): Status: Acute Code(s): N39.0 - Urinary tract infection, site not specified SNOMED Code(s): 25878789 (3) Decubitus ulcer, heel: Status: Acute Code(s): L89.609 - Pressure ulcer of unspecified heel, unspecified stage SNOMED Code(s): 266554385 (4) Hypertension: Status: Acute Code(s): I10 - Essential (primary) hypertension SNOMED Code(s): 00959756 Plan: Discharge planning per husbands request for placement in half-way
[2021-11-16] MEDS ORDERED: SANTYL TP SCH (09:00)
[2021-11-16] MEDS ORDERED: CATAPRES-TTS 1 TD SCH (09:00)
[2021-11-16] MEDS: LOVENOX SUBCUT SCH (09:19)
[2021-11-16] MEDS: LOPRESSOR IVP SCH ×2 (09:19→21:45)
[2021-11-16] MEDS: PROTONIX IV IVP SCH (09:19)
[2021-11-16] MEDS: D5%-1/2NS-KCL 20 MEQ/L IV SOL 1,000 ML IV SCH ×2 (10:20→20:35)
[2021-11-16] MEDS: ASPIRIN EC PO SCH (10:56)
[2021-11-16] MEDS: NON-FORMULARY MEDICATION (Calcium-Magnesium-Zinc 333-133-5 mg Tablet) PO SCH (10:57)
[2021-11-16] MEDS: NEURONTIN PO SCH ×3 (10:57→20:51)
[2021-11-16] MEDS: SANTYL TP SCH (15:31)
[2021-11-16] MEDS: SEROQUEL PO SCH (20:50)
[2021-11-17] MEDS: HYDRALAZINE HCL IVP PRN (02:40)
[2021-11-17] MEDS: MORPHINE 2 MG/ML VIAL IVP PRN ×2 (03:30→22:15)
[2021-11-17] MEDS: TYLENOL RC SCH ×4 (03:53→17:09)
[2021-11-17 04:33] LABS: BASOPHILS # (AUTO) 0.1 K/uL (0-0.2); BASOPHILS % (AUTO) 0.8 % (0.0-3.0); EOSINOPHILS # (AUTO) 0.9 K/ul (0.0-0.7); HEMATOCRIT 40.2 % (37.0-47.0); HEMOGLOBIN 12.9 g/dl (12.0-16.0); IMMATURE GRANULOCYTE % (AUTO) 0.5 % (0.0-5.0); LYMPHOCYTES # (AUTO) 2.2 K/uL (0.60-3.4); LYMPHOCYTES % (AUTO) 28.2 (10.0-50.0); MEAN CORPUSCULAR HEMOGLOBIN 27.6 pg (27.0-31.0); MEAN CORPUSCULAR HGB CONC 32.1 (31.8-35.4); MEAN CORPUSCULAR VOLUME 86.1 fl (81.0-99.0); MONOCYTES # (AUTO) 0.9 K/uL (0.4-2.0); NEUTROPHILS # (AUTO) 3.7 K/ul (2.0-6.9); NEUTROPHILS % (AUTO) 48.5 % (42.2-75.2); PLATELET COUNT 254 10^3/uL (140-440); RDW COEFFICIENT OF VARIATION 13.9 % (11.6-14.8); RED BLOOD COUNT 4.67 10^6/ul (4.20-5.40); WHITE BLOOD COUNT 7.72 K/ul (4.6-10.2)
[2021-11-17 04:52] LABS: ALANINE AMINOTRANSFERASE 15.4 U/L (0-35); ALBUMIN 3.49 g/dL (3.5-5.0); ALKALINE PHOSPHATASE 102.3 U/L (53-141); ASPARTATE AMINO TRANSFERASE 23.4 U/L (14-36); BILIRUBIN,TOTAL 0.77 mg/dL (0.2-1.3); BLOOD UREA NITROGEN 4.9 mg/dL (7-17); CALCIUM 9.52 mg/dL (8.4-10.2); CARBON DIOXIDE 22.1 mmol/L (22-30.0); CREATININE 0.65 mg/dL (0.60-1.30); GLUCOSE 284.1 mg/dL (74-106); POTASSIUM 4.66 mmol/L (3.5-5.1); SODIUM 136.1 mmol/L (134.5-145); TOTAL PROTEIN 6.11 g/dL (6.3-8.2)
[2021-11-17] MEDS: HUMALOG SUBCUT PRN ×4 (05:47→21:32)
[2021-11-17] MEDS: SYNTHROID PO SCH (05:51)
[2021-11-17] MEDS: VASOTEC IV IVP PRN (06:45)
[2021-11-17] MEDS: D5%-1/2NS-KCL 20 MEQ/L IV SOL 1,000 ML IV SCH ×2 (07:17→17:08)
--- NOTE | 2021-11-17 08:23 | PCM.PROG ---
Date Seen by Provider: 11/17/21 Time Seen by Provider: 07:35 Subjective: Pt still requiring IV BP medications and sedatives for agitation. Asleep this morning but when aroused, still confused. Will not answer questions or follow commands well . Still awaiting placement which has been difficult given her condition. Objective: Vitals: T=97 F, P=89, R=18, HA=432/94, SPO2=97 HEENT: PERRL Neck: supple Lungs: clear CVS: RRR Abdomen: soft Neurological: confused and not following commands or answering questions Lab/Tests/Diagnostic Imaging: see report (1) Altered mental status: Status: Acute Code(s): R41.82 - Altered mental status, unspecified SNOMED Code(s): 279683416 (2) UTI (urinary tract infection): Status: Acute Code(s): N39.0 - Urinary tract infection, site not specified SNOMED Code(s): 30725087 (3) Decubitus ulcer, heel: Status: Acute Code(s): L89.609 - Pressure ulcer of unspecified heel, unspecified stage SNOMED Code(s): 018438598 (4) Hypertension: Status: Acute Code(s): I10 - Essential (primary) hypertension SNOMED Code(s): 41656233 Plan: 1. Altered mental status: UTI has been address and cleared. Now appears to be a chronic issue. Pt is difficult as she will not take home oral medications. Will continue IM medications and when she is placed, she may require prn IM medications. 2. HTN: Pt continues to have elevated BP medications. On clonidine patch 0.1 and IV prn medications. Hydralazine has been used but is now on critical shortage. Will change clonidine patch to 0.2 mg and DC the hydralazine and add labetalol 20mg IV prn.
[2021-11-17] MEDS: LOVENOX SUBCUT SCH (08:39)
[2021-11-17] MEDS: LOPRESSOR IVP SCH ×2 (08:40→20:09)
[2021-11-17] MEDS: PROTONIX IV IVP SCH (08:40)
[2021-11-17] MEDS: CATAPRES-TTS 2 TD SCH (08:41)
[2021-11-17] MEDS: SANTYL TP SCH (08:49)
[2021-11-17] MEDS: ASPIRIN EC PO SCH (08:50)
[2021-11-17] MEDS: NON-FORMULARY MEDICATION (Calcium-Magnesium-Zinc 333-133-5 mg Tablet) PO SCH (08:50)
[2021-11-17] MEDS: NEURONTIN PO SCH ×3 (08:51→21:48)
[2021-11-17] MEDS: TRANDATE IVP PRN ×2 (10:14→14:45)
--- NOTE | 2021-11-17 11:40 | RS.BEDDYS ---
Subjective Date of Evaluation: 11/17/21 Date of Onset/Injury/Change in Status: 11/10/21 Diagnosis: UTI Current Level of Function: This is a 76 year old female with eight day hospital stay due to confusion and UTI. Pt has completed antibiotics however continues to refuse PO intake. NEEDLE POLISHER to assess for potential dysphagia and determine safer and least restrictive diet. Current Diet: soft and bite-sized; thin liquids Current Subjective/complaints:: Patient in bed with nursing at bedside positioning patient for PO intake. Patient responded with yes/no to simple questions regarding food/drink preferences. Patient communicated frequently, "please help, I need to pee." Patient was provided reinforcement to address her needs. General Information - General Ability to Follow Directions: Poor Is Patient able to Repeat Directions?: No Oral-Facial Assessment - Face Facial Symmetry: Symmetrical - Dental/Labial Teeth Comment: Unable to assess teeth Lips Comment: Pt pursed lips to refuse PO trials; no weakness or asymmetry observed. - Lingual Comments: patient did not attempt to complete oral motor examination. Lingual surface was not fully assessed due to pt's mentation with poor ability to follow directions. - Comments/Additional Info. Comments:: Pt was observed with dry labials. NEEDLE POLISHER did provide care to lower labial and removed dried secretions/dried skin. With automatic movements with speech productions labial and lingual function presented WFL. Food Presentation - Solids Food Presented: Pureed (via spoon) Behaviors/Comments: Pt kept lips closed with all spoon presentations. NEEDLE POLISHER offered several puree choices and pt continued to refuse PO trials. NEEDLE POLISHER could not fully assess pt's tolerance of presented food textures. - Liquids Liquid Presented: Thin (via spoon, straw) Behaviors/Comments: Pt did round labials around straw 1x. Pt did not pull liquids into oral cavity. Spoon presented and pt did not swallow presented thin liquids. ice chip was placed in oral cavity. Pt manipulated ice chip 1-2x and then allowed it to melt. No overt s/s of aspiration observed with ice chip presentation. - Recommendations: Dysphagia Evaluation Dietary Recommendations: Minced and Moist, Thin Comments:: Pt to downgrade to minced and moist diet texture to ensure safety with PO intake. Pt presented with general weakness and confusion that may interfere with safe swallowing. Dysphagia Swallow Precautions/Strategies: Sitting Upright (90 deg), Small Bites and Sips Comments:: Use safe swallowing and aspiration precautions with all PO intake. - Summary Dysphagia Evaluation Summary: At this time, NEEDLE POLISHER recommends downgrade to minced and moist diet texture. Pt presented with decreased vertical jaw movement and manipulation of ice chip, demonstrating weakness with oral phase of swallowing. For pharyngeal phase, pt demonstrated one swallow response with ice chip and LE was potentially decreased; however no overt s/s of aspiration with thin ice chip. Due to pt's limited interest in PO intake, NEEDLE POLISHER recommends; 1:1 feeding and supervision with all PO trials, oral care routine, monitor for increased chest congestion, encourage pt to swallow to reduce risks of swallow atrophy, may need dietitian consult for nutritional support; continue PO meds crushed in pudding/applesauce/yogurt. Further Therapy Indicated?: Yes Comments: To continue to assess pt's swallow function Functional Reporting G Codes: n/a Severity Impairment Rationale: n/a Short Term Goals Problem: Safe swallowing Goal #1: Re-assessment of swallow function for potential diet upgrade Goal to be met by: 11/19/21 Problem: Swallowing Goal #2: Pt to tolerate minced and moist diet with thin liquids w/o s/s of asp. Goal to be met by: 11/19/21 Snf Goals Problem: safe swallowing Goal #1: Pt tolerate safer/ least restrictive diet with min to no overt s/s of asp. Goal to be met by: 11/19/21 Plan Duration of Treatment: 1 Week Frequency of Treatment: 1-2 days Anticipated Discharge Destination: [facility] - Treatment Code (1) Dysphagia Code(s): R13.10 - Dysphagia, unspecified (2) Altered mental status Code(s): R41.82 - Altered mental status, unspecified
[2021-11-17] MEDS: ATIVAN IVP PRN ×2 (13:11→20:10)
[2021-11-17] MEDS: SEROQUEL PO SCH (21:27)
[2021-11-18] MEDS: SEROQUEL PO SCH ×2 (00:41→20:46)
[2021-11-18] MEDS: ATIVAN IVP PRN ×2 (01:57→17:50)
[2021-11-18] MEDS: VASOTEC IV IVP PRN (02:22)
[2021-11-18] MEDS: D5%-1/2NS-KCL 20 MEQ/L IV SOL 1,000 ML IV SCH ×2 (02:58→13:26)
[2021-11-18] MEDS: TYLENOL RC SCH ×4 (04:54→18:01)
[2021-11-18] MEDS: MORPHINE 2 MG/ML VIAL IVP PRN (05:46)
[2021-11-18] MEDS: HUMALOG SUBCUT PRN ×4 (06:43→20:43)
[2021-11-18] MEDS: SYNTHROID PO SCH (06:54)
[2021-11-18] MEDS: LOVENOX SUBCUT SCH (09:23)
[2021-11-18] MEDS: SANTYL TP SCH (09:36)
[2021-11-18] MEDS: NEURONTIN PO SCH ×3 (09:38→20:45)
[2021-11-18] MEDS: NON-FORMULARY MEDICATION (Calcium-Magnesium-Zinc 333-133-5 mg Tablet) PO SCH (09:38)
[2021-11-18] MEDS: ASPIRIN EC PO SCH (09:38)
[2021-11-18] MEDS: LOPRESSOR IVP SCH (09:47)
[2021-11-18] MEDS: PROTONIX IV IVP SCH (09:47)
[2021-11-18] MEDS ORDERED: ATIVAN IM PRN (19:34)
[2021-11-18] MEDS ORDERED: HALDOL IM PRN (19:34)
[2021-11-18] MEDS: ROXANOL 20 MG/ML PO PRN (22:19)
[2021-11-19] MEDS: TYLENOL RC SCH ×4 (03:25→17:36)
[2021-11-19] MEDS: SYNTHROID PO SCH (06:43)
[2021-11-19] MEDS: HUMALOG SUBCUT PRN ×4 (06:47→20:31)
[2021-11-19] MEDS: SANTYL TP SCH (08:02)
[2021-11-19] MEDS: LOVENOX SUBCUT SCH (08:03)
--- NOTE | 2021-11-19 08:19 | PCM.PROG ---
Date Seen by Provider: 11/19/21 Time Seen by Provider: 07:48 Subjective: Pt's condition remains essentially unchanged. She is unable to answer any questions or follow any commands. She did lose her IV yesterday and has been switched to po and IM medications. Still awaiting disposition. Objective: Vitals: T=98.9 F, P=95, R=16, GB=622/96, SPO2=99 HEENT: PERRL Neck: supple Lungs: clear CVS: RRR Abdomen: soft, non tender Nerological: chronically confused. Lab/Tests/Diagnostic Imaging: Stable with a Hb of 8.4 (1) Dysphagia: Status: Acute Code(s): R13.10 - Dysphagia, unspecified SNOMED Code(s): 72704927 (2) Altered mental status: Status: Acute Code(s): R41.82 - Altered mental status, unspecified SNOMED Code(s): 191663874 Plan: 1. Placement: SS has been having significant difficulty with placement. Now considering Hospice with home placement. Will await SS decision. 2. HTN: Continue clonidine and breakthru medications. 3. Agitation: Now receiving oral and IM medications as needed.
[2021-11-19] MEDS: NON-FORMULARY MEDICATION (Calcium-Magnesium-Zinc 333-133-5 mg Tablet) PO SCH (09:53)
[2021-11-19] MEDS: NEURONTIN PO SCH ×3 (09:53→20:23)
[2021-11-19] MEDS: ASPIRIN EC PO SCH (09:53)
[2021-11-19] MEDS: SEROQUEL PO SCH (20:23)
[2021-11-20] MEDS: TYLENOL RC SCH ×4 (00:04→17:42)
[2021-11-20] MEDS: ROXANOL 20 MG/ML PO PRN ×3 (04:53→23:29)
[2021-11-20] MEDS: HUMALOG SUBCUT PRN ×3 (06:10→20:12)
[2021-11-20] MEDS: SYNTHROID PO SCH (06:16)
[2021-11-20] MEDS: SANTYL TP SCH (09:55)
[2021-11-20] MEDS: NEURONTIN PO SCH ×3 (09:56→20:21)
[2021-11-20] MEDS: NON-FORMULARY MEDICATION (Calcium-Magnesium-Zinc 333-133-5 mg Tablet) PO SCH (09:56)
[2021-11-20] MEDS: ASPIRIN EC PO SCH (09:56)
[2021-11-20] MEDS: LOVENOX SUBCUT SCH (10:40)
--- NOTE | 2021-11-20 11:30 | PCM.PROG ---
Date Seen by Provider: 11/20/21 Subjective: pt DNI, do not intubate, continues altered mental status, treated for uti Objective: Vitals: T=96.2 F, P=90, R=20, QY=818/65, SPO2=95 HEENT: [][place]omi Neck: []supple Lungs: [] clear CVS: []RRR Abdomen: []soft and nontender Extremities: []no cyanosis Neurological: []alert and NAD Skin: []warm and dry, no cyanosis Lab/Tests/Diagnostic Imaging: [] (1) Dysphagia: Status: Acute Code(s): R13.10 - Dysphagia, unspecified SNOMED Code(s): 95281430 (2) Altered mental status: Status: Acute Code(s): R41.82 - Altered mental status, unspecified SNOMED Code(s): 510638968 Plan: encourage diet, evaluate for NH placement care to Dr Newman at 19:00
[2021-11-20 12:37] LABS: BASOPHILS # (AUTO) 0.1 K/uL (0-0.2); BASOPHILS % (AUTO) 1.1 % (0.0-3.0); EOSINOPHILS % (AUTO) 0.2 % (0.0-7.0); HEMOGLOBIN 13.5 g/dl (12.0-16.0); IMMATURE GRANULOCYTE # (AUTO) 0.1 (0.0-1.0); IMMATURE GRANULOCYTE % (AUTO) 0.5 % (0.0-5.0); LYMPHOCYTES % (AUTO) 32.3 (10.0-50.0); MEAN CORPUSCULAR HEMOGLOBIN 27.7 pg (27.0-31.0); MEAN CORPUSCULAR HGB CONC 31.4 (31.8-35.4); MEAN CORPUSCULAR VOLUME 88.3 fl (81.0-99.0); MONOCYTES % (AUTO) 10.7 (0-10); NEUTROPHILS # (AUTO) 5.1 K/ul (2.0-6.9); NEUTROPHILS % (AUTO) 55.2 % (42.2-75.2); PLATELET COUNT 292 10^3/uL (140-440); RDW COEFFICIENT OF VARIATION 14.1 % (11.6-14.8); RED BLOOD COUNT 4.87 10^6/ul (4.20-5.40); WHITE BLOOD COUNT 9.28 K/ul (4.6-10.2)
[2021-11-20 12:50] LABS: ALANINE AMINOTRANSFERASE 16.1 U/L (0-35); ALBUMIN 3.71 g/dL (3.5-5.0); ALKALINE PHOSPHATASE 109.2 U/L (53-141); ASPARTATE AMINO TRANSFERASE 24.4 U/L (14-36); BILIRUBIN,TOTAL 0.8 mg/dL (0.2-1.3); BLOOD UREA NITROGEN 12.2 mg/dL (7-17); CALCIUM 10.07 mg/dL (8.4-10.2); CARBON DIOXIDE 25.4 mmol/L (22-30.0); CHLORIDE 105.7 mmol/L (98-107); CREATININE 0.88 mg/dL (0.60-1.30); GLUCOSE 198.8 mg/dL (74-106); POTASSIUM 4.77 mmol/L (3.5-5.1); SODIUM 137.2 mmol/L (134.5-145); TOTAL PROTEIN 6.44 g/dL (6.3-8.2)
--- NOTE | 2021-11-20 13:38 | PCM.PROG ---
pt requests dnr and comfort care only status
--- NOTE | 2021-11-20 14:56 | PCM.PROG ---
nursing obtained iv access, will restart d5 1/2ns and continue insulin R sliding scale
[2021-11-20 15:17] LABS: BILIRUBIN,URINE 2+ (NEGATIVE); CLARITY,URINE Clear (CLEAR); COLOR,URINE Yellow (YELLOW); GLUCOSE, URINE (UA) Negative (NEGATIVE); KETONES,URINE 2+ (NEGATIVE); LEUKOCYTE ESTERASE ,URINE Trace (NEGATIVE); NITRITE,URINE Negative (NEGATIVE); PH,URINE 5.5 (5-9); PROTEIN,URINE 1+ (NEGATIVE); URINE, BLOOD Negative (NEGATIVE); UROBILINOGEN,URINE 0.2 (0.2)
[2021-11-20 15:31] LABS: SQUAMOUS EPITHELIAL CELL,UR NOT PRESENT (0-5)
[2021-11-20 15:36] LABS: YEAST,URINE 4+ (NOT PRESENT)
[2021-11-20] MEDS: SEROQUEL PO SCH (20:22)
[2021-11-20] MEDS: D5%-1/2NS-KCL 20 MEQ/L IV SOL 1,000 ML IV SCH (21:37)
[2021-11-21] MEDS: TYLENOL RC SCH ×5 (00:33→23:21)
[2021-11-21] MEDS: D5%-1/2NS-KCL 20 MEQ/L IV SOL 1,000 ML IV SCH ×3 (01:36→20:44)
[2021-11-21] MEDS: SYNTHROID PO SCH (05:35)
[2021-11-21] MEDS: HUMALOG SUBCUT PRN ×4 (06:12→20:00)
[2021-11-21 06:34] LABS: BASOPHILS % (AUTO) 0.4 % (0.0-3.0); EOSINOPHILS # (AUTO) 0.4 K/ul (0.0-0.7); EOSINOPHILS % (AUTO) 4.7 % (0.0-7.0); HEMATOCRIT 39.1 % (37.0-47.0); HEMOGLOBIN 12.5 g/dl (12.0-16.0); IMMATURE GRANULOCYTE # (AUTO) 0.1 (0.0-1.0); IMMATURE GRANULOCYTE % (AUTO) 0.7 % (0.0-5.0); LYMPHOCYTES # (AUTO) 2.9 K/uL (0.60-3.4); MEAN CORPUSCULAR HEMOGLOBIN 27.7 pg (27.0-31.0); MEAN CORPUSCULAR VOLUME 86.5 fl (81.0-99.0); NEUTROPHILS # (AUTO) 4.7 K/ul (2.0-6.9); NEUTROPHILS % (AUTO) 51.2 % (42.2-75.2); PLATELET COUNT 252 10^3/uL (140-440); RDW COEFFICIENT OF VARIATION 13.8 % (11.6-14.8); RED BLOOD COUNT 4.52 10^6/ul (4.20-5.40)
[2021-11-21 06:54] LABS: ALANINE AMINOTRANSFERASE 13.2 U/L (0-35); ALBUMIN 3.13 g/dL (3.5-5.0); ALKALINE PHOSPHATASE 91.7 U/L (53-141); ASPARTATE AMINO TRANSFERASE 20.5 U/L (14-36); BILIRUBIN,TOTAL 0.78 mg/dL (0.2-1.3); BLOOD UREA NITROGEN 15.7 mg/dL (7-17); CALCIUM 9.22 mg/dL (8.4-10.2); CARBON DIOXIDE 18.4 mmol/L (22-30.0); CHLORIDE 106.9 mmol/L (98-107); CREATININE 0.77 mg/dL (0.60-1.30); POTASSIUM 4.94 mmol/L (3.5-5.1); SODIUM 132.8 mmol/L (134.5-145); TOTAL PROTEIN 5.81 g/dL (6.3-8.2)
--- NOTE | 2021-11-21 08:28 | PCM.PROG ---
Date Seen by Provider: 11/21/21 Subjective: pt still confused, review of NH3 and head ct show nap Objective: Vitals: T=97.6 F, P=74, R=18, TN=699/75, SPO2=99 HEENT: []eomi Neck: []supple Lungs: [] clear CVS: []RRR Abdomen: []soft and nontender Extremities: []warm and dry Neurological: []alert and awake Skin: []no cyanosis Lab/Tests/Diagnostic Imaging: [] (1) Dysphagia: Status: Acute Code(s): R13.10 - Dysphagia, unspecified SNOMED Code(s): 38567444 (2) Altered mental status: Status: Acute Code(s): R41.82 - Altered mental status, unspecified SNOMED Code(s): 919983803 Plan: monistat intravag for yeast in urine, continue insulin R scale and D5w for nutrition and hydration care to Dr Mclean at 19:00
[2021-11-21] MEDS: LOVENOX SUBCUT SCH (09:16)
[2021-11-21] MEDS: ASPIRIN EC PO SCH (09:18)
[2021-11-21] MEDS ORDERED: ZOFRAN 4 MG/2 ML IVP PRN (09:42)
[2021-11-21] MEDS: NON-FORMULARY MEDICATION (Calcium-Magnesium-Zinc 333-133-5 mg Tablet) PO SCH (09:43)
[2021-11-21] MEDS: NEURONTIN PO SCH (09:43)
[2021-11-21] MEDS: SANTYL TP SCH (09:56)
[2021-11-21] MEDS: ATIVAN IVP PRN (20:01)
[2021-11-21] MEDS: SEROQUEL PO SCH (20:46)
[2021-11-22 05:09] LABS: BASOPHILS # (AUTO) 0.1 K/uL (0-0.2); BASOPHILS % (AUTO) 0.6 % (0.0-3.0); EOSINOPHILS % (AUTO) 0.1 % (0.0-7.0); HEMATOCRIT 38.7 % (37.0-47.0); HEMOGLOBIN 12.9 g/dl (12.0-16.0); IMMATURE GRANULOCYTE # (AUTO) 0.1 (0.0-1.0); IMMATURE GRANULOCYTE % (AUTO) 0.9 % (0.0-5.0); LYMPHOCYTES # (AUTO) 2.9 K/uL (0.60-3.4); LYMPHOCYTES % (AUTO) 28.1 (10.0-50.0); MEAN CORPUSCULAR HEMOGLOBIN 28.3 pg (27.0-31.0); MEAN CORPUSCULAR HGB CONC 33.3 (31.8-35.4); MEAN CORPUSCULAR VOLUME 84.9 fl (81.0-99.0); MONOCYTES # (AUTO) 1.2 K/uL (0.4-2.0); MONOCYTES % (AUTO) 11.6 (0-10); NEUTROPHILS % (AUTO) 58.7 % (42.2-75.2); PLATELET COUNT 267 10^3/uL (140-440); RDW COEFFICIENT OF VARIATION 13.8 % (11.6-14.8); RED BLOOD COUNT 4.56 10^6/ul (4.20-5.40); WHITE BLOOD COUNT 10.16 K/ul (4.6-10.2)
[2021-11-22 05:18] LABS: ALANINE AMINOTRANSFERASE 14.1 U/L (0-35); ALBUMIN 3.51 g/dL (3.5-5.0); ASPARTATE AMINO TRANSFERASE 20.3 U/L (14-36); BILIRUBIN,TOTAL 0.9 mg/dL (0.2-1.3); BLOOD UREA NITROGEN 14.2 mg/dL (7-17); CALCIUM 9.34 mg/dL (8.4-10.2); CARBON DIOXIDE 20.6 mmol/L (22-30.0); CHLORIDE 105.7 mmol/L (98-107); CREATININE 0.76 mg/dL (0.60-1.30); GLUCOSE 317.7 mg/dL (74-106); POTASSIUM 4.87 mmol/L (3.5-5.1); SODIUM 132.5 mmol/L (134.5-145); TOTAL PROTEIN 6.07 g/dL (6.3-8.2)
[2021-11-22] MEDS: D5%-1/2NS-KCL 20 MEQ/L IV SOL 1,000 ML IV SCH ×3 (05:18→17:15)
[2021-11-22] MEDS: TYLENOL RC SCH ×4 (05:20→23:31)
[2021-11-22] MEDS: HUMALOG SUBCUT PRN ×4 (05:48→21:24)
[2021-11-22] MEDS: SYNTHROID PO SCH (05:57)
[2021-11-22] MEDS: LOVENOX SUBCUT SCH (08:55)
[2021-11-22] MEDS: SANTYL TP SCH (08:55)
--- NOTE | 2021-11-22 16:55 | PCM.PROG ---
Date Seen by Provider: 11/22/21 Time Seen by Provider: 12:00 Subjective: Difficult situation, patient admitted with mental status changes. Had UTI, treated. She won't eat or drink. Has dementia. Family wants her a DNR, and would like her in a local fci. However, none will take her due to her not eating or drinking. Family not wanting a feeding tube. Needing occasional roxanol for pain control, ? source. Objective: Vitals: T=97.5 F, P=80, R=18, ZK=207/74, SPO2=96 HEENT: [Grossly WNL] Neck: [supple] Lungs: [decreased BS, clear] CVS: RRR, no m[] Abdomen: [soft] Extremities: [no acute change] Neurological: [Awake, not responsive, nothing focal.] Skin: [Grossly WNL] Lab/Tests/Diagnostic Imaging: Laboratory Results - last 24 hr 11/22/21 11/22/21 04:40 04:40 WBC 10.16 RBC 4.56 Hgb 12.9 Hct 38.7 MCV 84.9 MCH 28.3 MCHC 33.3 RDW Coeff of Afua 13.8 Plt Count 267 Immature Gran % (Auto) 0.9 Neut % (Auto) 58.7 Lymph % (Auto) 28.1 [place] % (Auto) 11.6 H Eos % (Auto) 0.1 Baso % (Auto) 0.6 Neut # (Auto) 6.0 Lymph # (Auto) 2.9 [place] # (Auto) 1.2 Eos # (Auto) 0.0 Baso # (Auto) 0.1 Immature Gran # (Auto) 0.1 Sodium 132.5 L Potassium 4.87 Chloride 105.7 Carbon Dioxide 20.6 L Anion Gap 11.07 BUN 14.2 Creatinine 0.76 Estimated GFR (MDRD) 74.00 BUN/Creatinine Ratio 18.68 Glucose 317.7 H Calcium 9.34 Total Bilirubin 0.90 AST 20.3 ALT 14.1 Alkaline Phosphatase 106.0 Total Protein 6.07 L Albumin 3.51 Globulin 2.56 Albumin/Globulin Ratio 1.37 (1) Dysphagia: Status: Acute Code(s): R13.10 - Dysphagia, unspecified SNOMED Code(s): 67600577 Assessment: Refusing to eat or drink. Does not appear to be a swallowing problem, just mental. Nutritional issue. (2) Altered mental status: Status: Acute Code(s): R41.82 - Altered mental status, unspecified SNOMED Code(s): 580840983 Assessment: Apparently a profound dementia manifestation. Work-up has been unremarkable. Plan: Discuss with family issues like feeding tubes, hospice, neurology referral, and so on.
[2021-11-22] MEDS: SEROQUEL PO SCH (20:24)
[2021-11-23] MEDS: D5%-1/2NS-KCL 20 MEQ/L IV SOL 1,000 ML IV SCH ×2 (04:13→17:02)
[2021-11-23] MEDS: TYLENOL RC SCH ×3 (05:07→17:39)
[2021-11-23] MEDS: SYNTHROID PO SCH (05:43)
[2021-11-23] MEDS: HUMALOG SUBCUT PRN ×4 (06:00→20:43)
[2021-11-23] MEDS: LOVENOX SUBCUT SCH (09:10)
[2021-11-23] MEDS: SANTYL TP SCH (09:18)
[2021-11-23] MEDS: SEROQUEL PO SCH (20:52)
[2021-11-24] MEDS: TYLENOL RC SCH ×4 (00:28→17:22)
[2021-11-24] MEDS: SYNTHROID PO SCH (05:42)
[2021-11-24] MEDS: HUMALOG SUBCUT PRN ×3 (06:16→21:07)
[2021-11-24] MEDS: CATAPRES-TTS 2 TD SCH (08:59)
[2021-11-24] MEDS: LOVENOX SUBCUT SCH (09:02)
[2021-11-24] MEDS: SANTYL TP SCH (09:19)
[2021-11-24] MEDS: SEROQUEL PO SCH (21:08)
--- NOTE | 2021-11-24 21:19 | PCM.PROG ---
Date Seen by Provider: 11/24/21 Time Seen by Provider: 12:00 Subjective: Still not verbalizing. Underlying dementia. HPI - refer to admission documents. Objective: Vitals: T=98.3 F, P=77, R=18, IH=071/81, SPO2=96 HEENT: [grossly wnl] Neck: [unchange] Lungs: [clear] CVS: [rrr no m] Abdomen: [soft] Extremities: [intact without edema] Neurological: [Very limited exam. She is awake, not able to communicate very well.] Skin: [wnl] Lab/Tests/Diagnostic Imaging: Laboratory Last Values WBC 10.16 K/ul (4.6-10.2) 11/22/21 04:40 RBC 4.56 10^6/ul (4.20-5.40) 11/22/21 04:40 Hgb 12.9 g/dl (12.0-16.0) 11/22/21 04:40 Hct 38.7 % (37.0-47.0) 11/22/21 04:40 MCV 84.9 fl (81.0-99.0) 11/22/21 04:40 MCH 28.3 pg (27.0-31.0) 11/22/21 04:40 MCHC 33.3 (31.8-35.4) 11/22/21 04:40 RDW Coeff of Afua 13.8 % (11.6-14.8) 11/22/21 04:40 Plt Count 267 10^3/uL (140-440) 11/22/21 04:40 Immature Gran % (Auto) 0.9 % (0.0-5.0) 11/22/21 04:40 Neut % (Auto) 58.7 % (42.2-75.2) 11/22/21 04:40 Lymph % (Auto) 28.1 (10.0-50.0) 11/22/21 04:40 [place] % (Auto) 11.6 (0-10) H 11/22/21 04:40 Eos % (Auto) 0.1 % (0.0-7.0) 11/22/21 04:40 Baso % (Auto) 0.6 % (0.0-3.0) 11/22/21 04:40 Neut # (Auto) 6.0 K/ul (2.0-6.9) 11/22/21 04:40 Lymph # (Auto) 2.9 K/uL (0.60-3.4) 11/22/21 04:40 [place] # (Auto) 1.2 K/uL (0.4-2.0) 11/22/21 04:40 Eos # (Auto) 0.0 K/ul (0.0-0.7) 11/22/21 04:40 Baso # (Auto) 0.1 K/uL (0-0.2) 11/22/21 04:40 Immature Gran # (Auto) 0.1 (0.0-1.0) 11/22/21 04:40 Sodium 132.5 mmol/L (134.5-145) L 11/22/21 04:40 Potassium 4.87 mmol/L (3.5-5.1) 11/22/21 04:40 Chloride 105.7 mmol/L (98-107) 11/22/21 04:40 Carbon Dioxide 20.6 mmol/L (22-30.0) L 11/22/21 04:40 Anion Gap 11.07 11/22/21 04:40 BUN 14.2 mg/dL (7-17) 11/22/21 04:40 Creatinine 0.76 mg/dL (0.60-1.30) 11/22/21 04:40 Estimated GFR (MDRD) 74.00 mL/min 11/22/21 04:40 BUN/Creatinine Ratio 18.68 11/22/21 04:40 Glucose 317.7 mg/dL (74-106) H 11/22/21 04:40 Hemoglobin A1c 7.06 (4.0-6.0) H 11/15/21 04:10 Lactic Acid 0.96 mmol/L (0.7-2.1) D 11/13/21 06:18 Calcium 9.34 mg/dL (8.4-10.2) 11/22/21 04:40 Magnesium 1.38 mg/dL (1.6-2.3) L 11/16/21 06:53 Total Bilirubin 0.90 mg/dL (0.2-1.3) 11/22/21 04:40 AST 20.3 U/L (14-36) 11/22/21 04:40 ALT 14.1 U/L (0-35) 11/22/21 04:40 Alkaline Phosphatase 106.0 U/L (53-141) 11/22/21 04:40 Ammonia < 8.7 umol/L (9-30) L 11/12/21 08:39 Troponin I < 0.012 ng/ml (0.0000-0.120) 11/10/21 13:50 NT-Pro-B Natriuret Pep 485.000 pg/mL (0-300) H 11/15/21 04:10 Total Protein 6.07 g/dL (6.3-8.2) L 11/22/21 04:40 Albumin 3.51 g/dL (3.5-5.0) 11/22/21 04:40 Globulin 2.56 11/22/21 04:40 Albumin/Globulin Ratio 1.37 11/22/21 04:40 Triglycerides 174.0 mg/dL (0-150) H 11/15/21 04:10 Cholesterol 169.3 mg/dL (0-200) 11/15/21 04:10 LDL Cholesterol, Calc 109 mmol/L 11/15/21 04:10 VLDL Cholesterol 35 mg/dL (2-30) H 11/15/21 04:10 HDL Cholesterol 26.0 mg/dL (35-80) L 11/15/21 04:10 Cholesterol/HDL Ratio 6.5 (4.5-5.5) H 11/15/21 04:10 TSH 5.660 uIU/L (0.465-4.68) H 11/11/21 10:42 Free T4 1.39 ng/dL (0.78-2.19) 11/11/21 10:42 Urine Color Yellow (YELLOW) 11/20/21 15:06 Urine Clarity Clear (CLEAR) 11/20/21 15:06 Urine pH 5.5 (5-9) 11/20/21 15:06 Ur Specific [place] >=1.030 (1.005-1.030) 11/20/21 15:06 Urine Protein 1+ (NEGATIVE) H 11/20/21 15:06 Urine Glucose (UA) Negative (NEGATIVE) 11/20/21 15:06 Urine Ketones 2+ (NEGATIVE) H 11/20/21 15:06 Urine Blood Negative (NEGATIVE) 11/20/21 15:06 Urine Nitrite Negative (NEGATIVE) 11/20/21 15:06 Urine Bilirubin 2+ (NEGATIVE) H 11/20/21 15:06 Urine Urobilinogen 0.2 (0.2) 11/20/21 15:06 Ur Leukocyte Esterase Trace (NEGATIVE) H 11/20/21 15:06 Urine Microscopic RBC 0-2 (0-2) 11/13/21 15:50 Urine Microscopic WBC 10-20 (0-2) 11/20/21 15:06 Ur Squamous Epith Cells Not present (0-5) 11/20/21 15:06 Urine Yeast 4+ (NOT PRESENT) 11/20/21 15:06 SARS CoV-2 RNA Rapid GONZALES Negative (NEGATIVE) 11/10/21 14:07 (1) Dysphagia: Status: Acute Code(s): R13.10 - Dysphagia, unspecified SNOMED Code(s): 43862026 Assessment: Patient refusing to take anything by mouth. So, not really dysphagia, but ? better term. Underlying issue is dementia. Not even receiving IVF. DNR, but should be hospice as well if family does not want to pursue something like a feeding tube. Nursing staff working with family. (2) Altered mental status: Status: Acute Code(s): R41.82 - Altered mental status, unspecified SNOMED Code(s): 753982631 Assessment: Dementia is the diagnosis for the AMS. Minor UTI treated. Plan: 1. Lack of nutrition/dysphagia - family needs to decide OSMAN whether to go with hospice, or feeding tube. Local nursing homes are reluctant to take this patient. 2. AMS - as best can determine, a manifestation of dementia. Not taking po med. Need family decision on management for this chronic problem.
[2021-11-25] MEDS: TYLENOL RC SCH ×4 (00:09→17:33)
[2021-11-25] MEDS: SYNTHROID PO SCH (05:53)
[2021-11-25] MEDS: ROXANOL 20 MG/ML PO PRN ×2 (06:07→11:11)
[2021-11-25] MEDS: LOVENOX SUBCUT SCH (08:24)
[2021-11-25] MEDS: SANTYL TP SCH (08:24)
--- NOTE | 2021-11-25 11:59 | PCM.PROG ---
Date Seen by Provider: 11/23/21 Time Seen by Provider: 13:10 Subjective: Patient resting in bed, eyes open without ocular response to stimulation. Does not follow command, offer verbal response. Emesis earlier today/ Case mgt Trina present and give updated report on attempts to do discharge planning to rehab facility -unsuccessful attempts due no beds Objective: Vitals: T=97.6 F, P=82, R=20, ER=992/67, SPO2=96 HEENT: Clear ; RAMANDEEP-A/ EOM-I Neck: Supple Lungs: CTA-AF CVS: HR S1s2 Abdomen: Soft non tender Extremities: neg Neurological: non verbal, does not follw commands Skin:neg Lab/Tests/Diagnostic Imaging: [] (1) Dysphagia: Status: Acute Code(s): R13.10 - Dysphagia, unspecified SNOMED Code(s): 96950685 (2) Altered mental status: Status: Acute Code(s): R41.82 - Altered mental status, unspecified SNOMED Code(s): 210812988 Plan: Discharge planning -continued attempt to make arrangements for transfer/ Discuss with
--- NOTE | 2021-11-25 12:55 | PCM.PROG ---
Date Seen by Provider: 11/25/21 Time Seen by Provider: 10:45 Subjective: Staff reports patient remains stable, taking minimal oral intake. At beside patient awake, makes eye movement spontaneously, squeezing hands with direction , EOM upon volition but not to direction./ Refuse to take sips of fluid from her water container- looks suspicious when instructing to take a drink Objective: Vitals: T=97.6 F, P=82, R=20, QM=754/67, SPO2=96 HEENT: Clear Neck: supple Lungs: CTA CVS: HRRRR Abdomen: Soft non tender Extremities: Neg edema Neurological: Awake follows some commands Skin: [] Lab/Tests/Diagnostic Imaging: [] (1) Dysphagia: Status: Acute Code(s): R13.10 - Dysphagia, unspecified SNOMED Code(s): 60293128 (2) Altered mental status: Status: Acute Code(s): R41.82 - Altered mental status, unspecified SNOMED Code(s): 230846519 Plan: PT/OT eval -tx Dsge planning -to discuss with family if they come to hospital today Discussed [facility] case mgt
--- NOTE | 2021-11-25 13:18 | RS.PTINEVL ---
Subjective - Patient information Date of Evaluation: 11/25/21 Date of Arrival on Unit: 11/10/21 Admitted From:: Home Diagnosis: UTI, altered mental status Usual Living Arrangement: With Spouse Home Environment: House Medical History: Hypertension, Dementia, Diabetes Medical History Comments:: L ankle injury Surgical History: Hysterectomy Medications: see chart Subjective Information/ Patient Comments:: pt is alert follows staff with eyes, pt answers some questions by head nodding. pt does state a few words. pt follows commands approx 15% or less. - Level of function Abilities prior to this admission: family not available to answer questions. pt was living at home with prior to admission. Current Level of Function: Dependent Current Equipment Used at Home: Walker, power chair, lift chair, hospital bed Interventions - Objective Patient Orientation: Person (pt looks at therapist when her name is called) Observation: pt with dressings to B heels pt with pressure ulcers B heels Range of Motion - ROM Right Upper Extremity AROM: WFL's Left Upper Extremity AROM: WFL's Right Lower Extremity AROM: Slight limitation Left Lower Extremity AROM: Slight limitation (decreased ankle DF.) Muscle Strength - Muscle Strength Comments:: unable to MMT due to pt is resistive to ROM and unable to follow commands for MMT. Sensation - Sensation Comments: Difficult to assess due to cognitive deficits Palpation Palpation Findings: None/Normal Balance - Sitting Balance and Reactions Static Sitting Balance: Poor Dynamic Sitting Balance: Zero Sitting Equilibrium Reactions: Absent Left, Absent Right Sitting Protective Reactions: Absent Left, Absent Right - Comments Balance Assessment Comments: pt attempts to hold herself up at side of bed, pt pushes backward and is resistant to attempts to sit pt more upright. pt requires mod to max of 2 to maintain sitting at side of bed. pt extends LE's. Functional Mobility - Bed Mobility Rolling R/L: Max Assist, 2 person assist Scooting: Max Assist, 2 person assist Supine to Sit: Max Assist, 2 person assist Sit to Supine: Max Assist, 2 person assist Comments:: pt sat at side of bed, required constant cueing to lean forward and mod to max of 1-2 to maintain sitting. - Safety Awareness Safety Awareness: Poor FRAN INDEX SCORE: n/a Treatment time - Time with patient Length of Evaluation: 21 Total treatment time: 27 Patient Education - Education Patient Education: Activity Modification Teaching Recipient: Patient Teaching Methods: Discussion Comments: attempted to discuss POC with patient. Difficult to assess what pt understands. Discussed with Trina Liang RNcapacity planning manager regarding that recommend nursing continue to use lift to transfer bed to/from chair. Assessment - Assessment Problem List:: Decreased level of function, Requires training/education, Decreased safety/Risk of falls, Weakness, Cognitive status limits abilities Rehab Potential: Fair (fair to poor) Further Therapy Indicated?: Yes Candidate for Swing Bed for Therapy Services?: Feel pt will require LTC for any rehab due to cognitive deficits limit progress with therapy. Evaluation Complexity: HISTORY: Medium, EXAM OF BODY SYSTEMS: Medium, CLINICAL PRESENTATION: Medium, CLINICAL DECISION MAKING: Medium Patient's Goal(s): pt unable to express Short Term Goals GOAL #1: pt demonstrate rolling with bedrails mod x 2 Goal to be met by: 11/28/21 GOAL #2: pt able to sit at side of bed without pushing backward w mod x 1 Goal to be met by: 11/28/21 GOAL #3: pt able to sit at side of bed x 2 mins w mod x 1 Goal to be met by: 11/28/21 GOAL #4: pt follow commands 50% of time Goal to be met by: 11/28/21 [facility] Goals GOAL #1: pt transfer sup to/from sit min x1 Goal to be met by: 11/30/21 GOAL #2: Rolling with bedrails min x 1 Goal to be met by: 11/30/21 GOAL #3: pt able to sit at side of bed and maintain balance with min x 1 Goal to be met by: 11/30/21 Plan Plan of Care: Therapeutic EX, Neuromuscular Re-Educ, Therapeutic Activity Frequency of Treatment: 1-2 X day, as tolerated Duration of Treatment: 5 days Anticipated Discharge Destination: undetermined Treatment Diagnosis (ICD 10 Codes): balance impaired R 26.81. weakness M62.81 Has the Physician been added for Co-signature?: Yes
[2021-11-25 14:35] VITALS: BP 145/81; TEMP 98.1
--- NOTE | 2021-11-25 14:45 | ED.PDOC ---
General ED Provider: Dr. FATOUMATA BAEZ Chief Complaint: Altered Mental Status Stated Complaint: Admitted to hospital with above problems. See Initial H&P Time Seen by Provider: 11/10/21 13:45 Mode of Arrival: Stretcher Information Source: Family Primary Care Provider: FATOUMATA PEÑALOZA Nursing and Triage Documentation Reviewed and Agree: Yes Does patient meet sepsis criteria?: Yes If yes, has appropriate treatment been initiated?: Yes System Inflammatory Response Syndrome: Acutely Altered Mental Status Sepsis Protocol: For patient's 13 years and over: Temp is 96.8 and below OR 101 and greater Pulse >90 BPM Resp >20/minute Acutely Altered Mental Status Are patient's symptoms suggestive of a new infection, such as: -Pneumonia -Skin, Soft Tissue -Endocarditis -UTI -Bone, Joint Infection -Implantable Device -Acute Abdominal Infection -Wound Infection -Meningitis -Blood Stream Catheter Infection -Unknown Neurological Complaint Exam Altered Mental Status Complaint/Exam Current Mental Status: Confusion and Agitation Last Known Well: 2 -3 weeks Onset: Sudden Symptoms Are: Still present Timing: Constant Episodes Lasting: Hours Initial Severity: Moderate Current Severity: Moderate Eye Deviation Present: No Character: Reports Confusion, Agitation, Responsiveness and Lethargy Alleviating: Reports None Associated Signs and Symptoms: Reports Weakness Cardiac Risk Factors: Reports Hypertension CVA Risk Factors: Reports Hypertension Related Surgical History: Reports None Carotid Bruit Present: No Nystagmus Present: No Gag Reflex Present: Yes Meningeal Signs Positive: No Focal Sensory Loss: Present None Gait: Unable [id number]: Abnormal right and Abnormal left Babinski Sign: Negative Right and Negative Left Heel to Toe Normal: No Signs of Injury: Present Normal findings Thrombolytics Considered: No Differential Diagnoses: Hypoxia, Injury, Metabolic Disorder, Medication reaction and CVA Neurological Deficit Complaint/Exam Patient Complains of: Reports Muscle weakness Symptom Onset Unknown: Yes Character: Reports Paresthesia, Motor weakness and Impaired speech Aggravating: Reports Stress and Hypertension Alleviating: Reports None Associated Signs and Symptoms: Reports Responsiveness and Recent illness Related History: Denies Similar episode or Anticoagulant therapy CVA Risk Factors: Reports Diabetes and Hypertension SDH Risk Factors: Reports Elderly Related Surgical History: Reports None Carotid Bruit Present: No Focal Weakness: Present RLE and LLE Focal Sensory Loss: Absent None, RUE, LUE, RLE, LLE, Right facial or Left facial Gait: Unable Nystagmus Present: No Gag Reflex Present: Yes Babinski Sign: Negative Right and Negative Left Signs of Trauma: No Review of Systems Review Of Systems Constitutional: Reports Malaise and Weakness Respiratory: Reports Cough, Short of air and Wheezing Cardiac: Reports No symptoms GI: Reports No symptoms : Reports No symptoms Musculoskeletal: Reports No symptoms Skin: Reports No symptoms Neurological: Reports Anxiety Endocrine: Reports No symptoms All Other Systems: Reviewed and Negative [facility] Medical History (Updated 11/25/21 @ 14:45 by FATOUMATA BAEZ DO) Diabetes Hyperlipidemia Hypertension Left ankle injury Family History Other Diabetes Hypertension Social History Smoking and tobacco status: Never smoker Alcohol intake: former Surgical History (Updated 11/17/21 @ 11:40 by EMY WAN) H/O: hysterectomy Female Reproductive History Menstrual Hx Hysterectomy: Yes Physical Exam Physical Exam Appearance: Reports Ill-appearing Ill-appearing: Mild Pain Distress: Not Applicable Eyes: Reports RAMANDEEP, EOMI and Conjunctiva clear ENT: Reports Ears normal and Nose normal Neck: Supple Respiratory: Reports Airway patent and Breath sounds clear Cardiovascular: Reports RRR and Pulses normal GI/: Reports Soft, Nontender and No masses Musculoskeletal: Reports Normal strength and No calf tenderness Skin: Reports Warm, Dry and Normal color Neurological: Reports Sensation intact, Motor intact, Cranial nerves intact, Alert, Disoriented, Alert to verbal and Alert to pain Psychiatric: Reports Anxious and Depressed Critical Care Note Critical Care Note Total Critical Care Time (mins): 30 Course Course Hematology/Chemistry: 11/22/21 04:40 11/22/21 04:40 Orders, Labs, Meds: Lab Review 11/10/21 11/10/21 11/10/21 13:40 13:50 13:50 WBC 8.55 RBC 4.52 Hgb 12.6 Hct 39.1 MCV 86.5 MCH 27.9 MCHC 32.2 RDW Coeff of Afua 13.8 Plt Count 277 Immature Gran % (Auto) 0.5 Neut % (Auto) 56.2 Lymph % (Auto) 31.6 [place] % (Auto) 6.0 Eos % (Auto) 5.3 Baso % (Auto) 0.4 Neut # (Auto) 4.8 Lymph # (Auto) 2.7 [place] # (Auto) 0.5 Eos # (Auto) 0.5 Baso # (Auto) 0.0 Immature Gran # (Auto) 0.0 Sodium 138.2 Potassium 4.08 Chloride 105.0 Carbon Dioxide 26.3 Anion Gap 10.98 BUN 12.7 Creatinine 1.07 Estimated GFR (MDRD) 50.00 BUN/Creatinine Ratio 11.86 Glucose 131.9 H Lactic Acid Calcium 9.89 Total Bilirubin 0.98 AST 29.6 ALT 18.6 Alkaline Phosphatase 130.9 Troponin I < 0.012 Total Protein 6.49 Albumin 3.76 Globulin 2.73 Albumin/Globulin Ratio 1.37 Urine Color Yellow Urine Clarity Clear Urine pH 8.5 Ur Specific [place] 1.020 Urine Protein Negative Urine Glucose (UA) Negative Urine Ketones 1+ H Urine Blood Negative Urine Nitrite Negative Urine Bilirubin Negative Urine Urobilinogen 0.2 Ur Leukocyte Esterase Negative SARS CoV-2 RNA Rapid GONZALES 11/10/21 11/10/21 14:07 14:43 WBC RBC Hgb Hct MCV MCH MCHC RDW Coeff of Afua Plt Count Immature Gran % (Auto) Neut % (Auto) Lymph % (Auto) [place] % (Auto) Eos % (Auto) Baso % (Auto) Neut # (Auto) Lymph # (Auto) [place] # (Auto) Eos # (Auto) Baso # (Auto) Immature Gran # (Auto) Sodium Potassium Chloride Carbon Dioxide Anion Gap BUN Creatinine Estimated GFR (MDRD) BUN/Creatinine Ratio Glucose Lactic Acid 2.77 H Calcium Total Bilirubin AST ALT Alkaline Phosphatase Troponin I Total Protein Albumin Globulin Albumin/Globulin Ratio Urine Color Urine Clarity Urine pH Ur Specific [place] Urine Protein Urine Glucose (UA) Urine Ketones Urine Blood Urine Nitrite Urine Bilirubin Urine Urobilinogen Ur Leukocyte Esterase SARS CoV-2 RNA Rapid GONZALES Negative Orders Category Date Time Status EKG-(ED ONLY) Stat CARDIO 11/10/21 14:22 Completed INCISION/WOUND CARE DAILY CARE 11/10/21 18:00 Active INTAKE & OUTPUT Q8HR CARE 11/10/21 16:26 Active IP: INSERT SALINE LOCK ONCE CARE 11/10/21 16:26 Active VITAL SIGNS Q8HR CARE 11/10/21 16:26 Active Ludwig [ED CATHETER INSERTION AND CARE] .ONCE EMERGENCY 11/10/21 16:45 Completed CBC W/ AUTO DIFF DAILY@0600 LAB 11/11/21 05:30 Completed CBC W/ AUTO DIFF DAILY@0600 LAB 11/12/21 06:05 Completed CBC W/ AUTO DIFF Stat LAB 11/10/21 13:50 Completed COMPREHENSIVE METABOLIC PANEL DAILY@0600 LAB 11/11/21 05:30 Completed COMPREHENSIVE METABOLIC PANEL DAILY@0600 LAB 11/12/21 06:05 Completed COMPREHENSIVE METABOLIC PANEL Stat LAB 11/10/21 13:50 Completed LACTIC ACID Stat LAB 11/10/21 14:43 Completed TROPONIN I Stat LAB 11/10/21 13:50 Completed URINALYSIS C & S IF INDICATED Stat LAB 11/10/21 13:40 Completed Aspirin [Aspirin EC] MEDS 11/11/21 08:30 Hold 81 mg PO DAILYWM Carvedilol [Coreg] MEDS 11/10/21 17:00 Hold 25 mg PO BIDWM Ceftriaxone 1 gm Vial [Rocephin 1 gm Vial] MEDS 11/10/21 15:48 Discontinued 1 gm .ROUTE .STK-MED ONE Ceftriaxone 1 gm Vial [Rocephin 1 gm Vial] 1 gm MEDS 11/11/21 09:00 Discontinued 0.9 % Sodium Chloride [Sodium Chloride 100Ml] 100 ml IV DAILY Ceftriaxone 1 gm Vial [Rocephin 1 gm Vial] 1 gm MEDS 11/10/21 14:22 Discontinued 0.9 % Sodium Chloride [Sodium Chloride 100Ml] 100 ml IV ONCE Cholecalciferol (Vitamin D3) [Vitamin D] MEDS 11/11/21 09:00 Discontinued 2,000 unit PO DAILY Cilostazol [Pletal] MEDS 11/10/21 21:00 Discontinued 50 mg PO BID Clonidine HCl [Catapres] MEDS 11/10/21 14:22 Discontinued 0.2 mg PO ONCE ONE Furosemide [Lasix Tab] MEDS 11/10/21 16:48 Discontinued 40 mg PO 3 TIMES PER WEEK PRN Gabapentin [Neurontin] MEDS 11/10/21 21:00 Discontinued 300 mg PO TID Insulin Glargine,Hum.rec.anlog [Lantus] MEDS 11/11/21 09:00 Hold 30 unit SUBCUT DAILY Insulin Glargine,Hum.rec.anlog [Lantus] MEDS 11/10/21 21:00 Hold 35 unit SUBCUT BEDTIME Insulin Lispro [Humalog] MEDS 11/10/21 17:00 Discontinued DOSE unit SUBCUT DIRECTED Levothyroxine Sodium [Synthroid] MEDS 11/11/21 06:30 Active 50 mcg PO QDAC Lidocaine (Uro-Jet) [Uro-Jet] MEDS 11/10/21 16:45 Discontinued 10 ml MUCOUSMEMB ONCE STA Lorazepam [Ativan] MEDS 11/10/21 15:54 Discontinued 0.5 mg IVP ONCE ONE Oxybutynin Chloride [Ditropan] MEDS 11/11/21 09:00 Hold 5 mg PO DAILY Pantoprazole Sodium [Protonix] MEDS 11/11/21 06:30 Discontinued 40 mg PO QDAC [id number] MEDS 11/11/21 09:00 Hold 1 tab PO DAILY RESUSCITATION STATUS Routine OTHERS 11/10/21 16:[address] HEAD W/O CONTRAST Stat RADS 11/10/21 14:22 Completed CXR [CHEST, 1V AP ONLY] Stat RADS 11/10/21 14:22 Completed Medications Generic Name Dose Route Start Last Admin Trade Name Freq PRN Reason Stop Dose Admin Acetaminophen 650 mg 11/15/21 11:00 11/25/21 11:50 Acetaminophen 650 Mg Supp.Rect RC Not Given Q6HR [facility] Aspirin 81 mg 11/11/21 08:30 11/21/21 09:18 Aspirin 81 Mg Tablet. PO Not Given DAILYWM [facility] Carvedilol 25 mg 11/10/21 17:00 11/14/21 17:52 Carvedilol 12.5 Mg Tablet PO Not Given BIDWM [facility] Clonidine HCl 1 patch 11/17/21 09:00 11/24/21 08:59 Clonidine 0.2 Mg Patch.Tdwk TD 1 patch WEEKLY NATHAN Administration Collagenase 1 applic 11/15/21 16:00 11/25/21 08:24 Collagenase Clostridium Hist 30 Gm Oint TP 1 applic DAILY NATHAN Administration Enalaprilat 1.25 mg 11/17/21 06:22 11/18/21 02:22 Enalaprilat Dihydrate 1.25 Mg/Ml Vial IVP 1.25 mg Q6H PRN Administration BLOOD PRESSURE > 180 SYSTOLIC Enoxaparin Sodium 40 mg 11/15/21 01:30 11/25/21 08:24 Enoxaparin Sodium 40 Mg/0.4 Ml Syr SUBCUT 40 mg DAILY NATHAN Administration Gabapentin 600 mg 11/11/21 09:00 11/21/21 09:43 Gabapentin 300 Mg Capsule PO Not Given TID [facility] Insulin Glargine 30 unit 11/11/21 09:00 11/11/21 10:05 Insulin Glargine,Hum.Rec.Anlog 100 Units/Ml SUBCUT Not Given DAILY [facility] Insulin Glargine 35 unit 11/10/21 21:00 11/11/21 21:14 Insulin Glargine,Hum.Rec.Anlog 100 Units/Ml SUBCUT Not Given BEDTIME [facility] Insulin Human Lispro 0 unit 11/12/21 08:15 11/24/21 21:07 Insulin Lispro 100 Unit/Ml (3 Ml) Vial SUBCUT 3 unit PRN PRN Administration Hyperglycemia Protocol Labetalol HCl 20 mg 11/17/21 08:17 11/17/21 14:45 Labetalol Hcl 20 Mg/4 Ml Disp.Syrin IVP 20 mg Q4H PRN Administration Hypertensive Emergency Levothyroxine Sodium 50 mcg 11/11/21 06:30 11/25/21 05:53 Levothyroxine Sodium 50 Mcg Tablet PO Not Given QDAC [facility] Lorazepam 1 mg 11/11/21 07:36 11/21/21 20:01 Lorazepam Inj 2 Mg/Ml Vial IVP 1 mg Q6H PRN Administration Restlessness/agitation Metoprolol Tartrate 2.5 mg 11/15/21 10:00 11/18/21 09:47 Metoprolol Tartrate 5 Mg/5 Ml Vial IVP 2.5 mg Q12HR NATHAN Administration Morphine Sulfate 2 mg 11/15/21 15:42 11/18/21 05:46 Morphine Sulfate 2 Mg/Ml Vial IVP 2 mg Q8H PRN Administration Pain Morphine Sulfate 0.25 ml 11/18/21 21:02 11/25/21 11:11 Morphine Sulfate 20 Mg/1 Ml 15 Ml Bottle PO 0.25 ml Q2H PRN Administration Pain Non-Formulary Medication 1 tab 11/11/21 09:00 11/21/21 09:43 Sndtuxh-Hqwbfvhbk-Llah PO Not Given DAILY [facility] Ondansetron HCl 4 mg 11/21/21 09:42 Ondansetron Hcl/Pf 4 Mg/2 Ml Sdv IVP Q6H PRN NAUSEA/VOMITING Oxybutynin Chloride 5 mg 11/11/21 09:00 11/14/21 09:46 Oxybutynin Chloride 5 Mg Tablet PO Not Given DAILY [facility] Pantoprazole Sodium 40 mg 11/14/21 09:00 11/18/21 09:47 Pantoprazole Sodium 40 Mg Vial IVP 40 mg DAILY NATHAN Administration Quetiapine Fumarate 50 mg 11/15/21 21:00 11/24/21 21:08 Quetiapine Fumarate 25 Mg Tablet PO Not Given BEDTIME NATHAN Discontinued Medications Generic Name Dose Route Start Last Admin Trade Name Paulino PRN Reason Stop Dose Admin Acetaminophen 650 mg 11/14/21 20:38 11/15/21 04:39 Acetaminophen 650 Mg Supp.Rect RC 650 mg Q6H PRN Administration Pain Acetaminophen 650 mg 11/15/21 11:42 11/15/21 13:44 Acetaminophen 325 Mg Tablet PO 11/15/21 11:43 Not Given ONCE ONE Amitriptyline HCl 25 mg 11/11/21 21:00 11/14/21 20:23 Amitriptyline Hcl 25 Mg Tablet PO Not Given BEDTIME [facility] Carvedilol 25 mg 11/13/21 01:01 11/13/21 01:17 Carvedilol 12.5 Mg Tablet PO 11/13/21 01:02 Not Given ONCE ONE Cholecalciferol 2,000 unit 11/11/21 09:00 11/15/21 09:04 Cholecalciferol (Vitamin D3) 1,000 Unit (25 Mcg) Tablet PO Not Given DAILY [facility] Cilostazol 50 mg 11/10/21 21:00 11/15/21 09:03 Cilostazol 100 Mg Tablet PO Not Given BID [facility] Clonidine 0.2 mg 11/10/21 14:22 11/10/21 15:54 Clonidine Hcl 0.1 Mg Tablet PO 11/10/21 14:23 0.2 mg ONCE ONE Administration Clonidine 0.2 mg 11/10/21 18:59 11/10/21 21:02 Clonidine Hcl 0.1 Mg Tablet PO 11/10/21 19:00 Not Given ONCE ONE Clonidine HCl 1 patch 11/16/21 09:00 11/16/21 10:21 Clonidine 0.1 Mg Patch.Tdwk TD 1 patch WEEKLY NATHAN Administration Collagenase 1 applic 11/16/21 09:00 Collagenase Clostridium Hist 30 Gm Oint TP DAILY [facility] Enalaprilat 1.25 mg 11/15/21 18:39 11/15/21 18:45 Enalaprilat Dihydrate 1.25 Mg/Ml Vial IVP 11/15/21 18:40 1.25 mg ONCE STA Administration Furosemide 40 mg 11/10/21 16:48 Furosemide 40 Mg Tablet PO 3 TIMES PER WEEK PRN Swelling Gabapentin 300 mg 11/10/21 21:00 11/10/21 21:02 Gabapentin 300 Mg Capsule PO Not Given TID NATHAN Glycerin 1 each 11/15/21 09:00 11/15/21 09:16 Glycerin 1 Each Supp.Rect RC 11/15/21 09:01 1 each ONCE ONE Administration Haloperidol Lactate 2 mg 11/11/21 15:47 11/11/21 15:56 Haloperidol Lactate 5 Mg/Ml Vial IVP 11/11/21 15:48 2 mg ONCE ONE Administration Haloperidol Lactate 2 - 5 mg 11/18/21 19:34 11/19/21 22:37 Haloperidol Lactate 5 Mg/Ml Vial IM 5 mg ONCE PRN Administration Restlessness Hydralazine HCl 25 mg 11/11/21 15:00 11/11/21 14:42 Hydralazine Hcl 50 Mg Tablet PO Not Given TID NATHAN Hydralazine HCl 10 mg 11/11/21 16:00 11/14/21 20:23 Hydralazine Hcl 20 Mg/Ml Sdv IVP Not Given BID NATHAN Hydralazine HCl 10 mg 11/13/21 00:07 11/13/21 00:13 Hydralazine Hcl 20 Mg/Ml Sdv IVP 11/13/21 00:08 10 mg ONCE STA Administration Hydralazine HCl 25 mg 11/14/21 18:45 11/14/21 19:06 Hydralazine Hcl 50 Mg Tablet PO 11/14/21 18:46 25 mg ONCE STA Administration Hydralazine HCl 5 mg 11/14/21 22:32 11/14/21 22:53 Hydralazine Hcl 20 Mg/Ml Sdv IVP 11/14/21 22:33 5 mg ONCE ONE Administration Hydralazine HCl 10 mg 11/15/21 01:23 11/17/21 02:40 Hydralazine Hcl 20 Mg/Ml Sdv IVP 10 mg Q6H PRN Administration Blood Pressure Ceftriaxone Sodium 1 gm/ 100 mls @ 150 mls/hr 11/10/21 14:22 11/10/21 15:55 Sodium Chloride IV 11/10/21 15:01 150 mls/hr ONCE STA Administration Ceftriaxone Sodium 1 gm/ 100 mls @ 150 mls/hr 11/11/21 09:00 11/12/21 08:51 Sodium Chloride IV 11/12/21 12:00 150 mls/hr DAILY NATHAN Administration Sodium Chloride 1,000 mls @ 125 mls/hr 11/11/21 10:30 11/11/21 17:37 Sodium Chloride IV 125 mls/hr .Q8H NATHAN Administration CEFTRIAXONE/D5W 1 GM PREMIX 1 gm in 50 mls @ 75 mls/hr 11/13/21 09:00 11/15/21 09:07 Rocephin 1 Gm/50 Ml D5w IV 11/15/21 10:00 75 mls/hr DAILY NATHAN Administration Dextrose 1,000 mls @ 125 mls/hr 11/11/21 19:30 11/12/21 20:10 Dextrose 5%-Water Iv Soln IV 125 mls/hr .Q8H NATHAN Administration Potassium Chloride/Dextrose/Sod Cl 1,000 mls @ 75 mls/hr 11/13/21 02:30 11/15/21 09:45 D5%-1/2ns-Kcl 20 Meq/L Iv Lauren IV Not Given .[id number] NATHAN Sodium Chloride 1,000 mls @ 500 mls/hr 11/14/21 16:00 11/14/21 16:05 Sodium Chloride IV 11/14/21 17:59 500 mls/hr .Q2H NATHAN Administration Potassium Chloride/Dextrose/Sod Cl 1,000 mls @ 100 mls/hr 11/15/21 02:00 11/23/21 17:02 D5%-1/2ns-Kcl 20 Meq/L Iv Lauren IV Not Given .Q10H NATHAN Magnesium Sulfate/Dextrose 2 gm in 200 mls @ 100 mls/hr 11/15/21 17:08 11/15/21 18:12 Magnesium Sulfate 1 Gm/100 Ml D5w IV 11/15/21 19:07 100 mls/hr ONCE STA Administration Insulin Human Lispro unit 11/10/21 17:00 Insulin Lispro 100 Unit/Ml (3 Ml) Vial SUBCUT DIRECTED NATHAN Ketorolac Tromethamine 15 mg 11/14/21 05:22 11/14/21 05:33 Ketorolac Tromethamine 15 Mg/Ml Vial IVP 11/15/21 05:22 15 mg Q6HR PRN Administration Pain Lidocaine HCl 10 ml 11/10/21 16:45 11/10/21 21:15 Lidocaine 10 Ml Jel.Pf.Ra (Urojet) MUCOUSMEMB 11/10/21 16:46 Not Given ONCE STA Lorazepam 0.5 mg 11/10/21 15:54 11/10/21 16:06 Lorazepam Inj 2 Mg/Ml Vial IVP 11/10/21 15:55 0.5 mg ONCE ONE Administration Lorazepam 0.5 mg 11/10/21 18:17 11/10/21 18:21 Lorazepam Inj 2 Mg/Ml Vial IVP 11/10/21 18:18 0.5 mg ONCE ONE Administration Lorazepam 0.5 mg 11/11/21 03:22 11/11/21 03:40 Lorazepam Inj 2 Mg/Ml Vial IVP 11/11/21 03:23 0.5 mg ONCE STA Administration Lorazepam 1 mg 11/11/21 12:20 11/11/21 12:36 Lorazepam Inj 2 Mg/Ml Vial IVP 11/11/21 12:21 1 mg ONCE STA Administration Lorazepam 1 mg 11/11/21 21:08 11/11/21 21:27 Lorazepam Inj 2 Mg/Ml Vial IVP 11/11/21 21:09 1 mg ONCE STA Administration Lorazepam 2 mg 11/18/21 19:34 11/18/21 20:52 Lorazepam Inj 2 Mg/Ml Vial IM 2 mg ONCE PRN Administration Restlessness Metoprolol Tartrate 2 mg 11/14/21 21:00 11/14/21 20:55 Metoprolol Tartrate 5 Mg/5 Ml Vial IVP 2 mg BID NATHAN Administration Metoprolol Tartrate 2 mg 11/15/21 09:00 11/15/21 09:42 Metoprolol Tartrate 5 Mg/5 Ml Vial IVP Not Given Q12HR NATHAN Morphine Sulfate 2 mg 11/10/21 20:39 11/10/21 20:57 Morphine Sulfate 2 Mg/Ml Vial IVP 11/10/21 20:40 2 mg ONCE ONE Administration Morphine Sulfate 4 mg 11/14/21 16:45 11/14/21 17:51 Morphine Sulfate 4 Mg/Ml Syringe IVP 11/14/21 16:46 Not Given ONCE ONE Morphine Sulfate 4 mg 11/14/21 17:30 11/14/21 17:35 Morphine Sulfate 2 Mg/Ml Vial IVP 11/14/21 17:31 4 mg ONCE ONE Administration Morphine Sulfate 2 mg 11/15/21 18:39 11/15/21 18:44 Morphine Sulfate 2 Mg/Ml Vial IVP 11/15/21 18:40 2 mg ONCE STA Administration Olanzapine 5 mg 11/15/21 14:16 11/15/21 14:34 Olanzapine 10 Mg Vial IM 11/15/21 14:17 5 mg ONCE ONE Administration Ondansetron HCl 4 mg 11/10/21 20:40 11/10/21 20:58 Ondansetron Hcl/Pf 4 Mg/2 Ml Sdv IVP 11/10/21 20:41 4 mg ONCE ONE Administration Pantoprazole Sodium 40 mg 11/11/21 06:30 11/14/21 05:41 Pantoprazole Sodium 40 Mg Tablet. PO Not Given QDAC NATHAN Pantoprazole Sodium 40 mg 11/13/21 20:56 11/13/21 21:09 Pantoprazole Sodium 40 Mg Vial IVP 11/13/21 20:57 40 mg ONCE STA Administration Ziprasidone 10 mg 11/11/21 21:08 11/11/21 21:49 Ziprasidone Mesylate 20 Mg/Ml Vial IM 11/11/21 21:09 10 mg ONCE STA Administration Ziprasidone 10 mg 11/12/21 22:07 11/12/21 22:18 Ziprasidone Mesylate 20 Mg/Ml Vial IM 11/12/21 22:08 10 mg ONCE STA Administration Ziprasidone 5 mg 11/13/21 01:48 11/13/21 01:57 Ziprasidone Mesylate 20 Mg/Ml Vial IM 11/13/21 01:49 5 mg ONCE STA Administration Vital Signs: Temp Pulse Resp BP Pulse Ox 11/10/21 14:02 97.9 F 81 20 203/97 H 99 Discharge Plan Discharge Patient Disposition: HOME WITH FAMILY CARE Discharge Problem: Altered mental status, Hypertension, UTI (urinary tract infection), Dysphagia, Altered mental status, Aphasia due to acute stroke, Impaired swallowing ED Provider: URBANO BOYCE Condition: Serious Physician Progress Note: Patients wants pt to be cared for by [facility] home health with Palliative Care []
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
--- NOTE | 2021-12-07 18:46 | PCM.PROG ---
Date Seen by Provider: 11/13/21 Time Seen by Provider: 09:00 Subjective: Remains fairly somolent and non verbal to answering questions. No involuntary movements.No family at hospital Objective: Vitals: T=98.1 F, P=88, R=16, LK=530/81, SPO2=96 HEENT: Clear; RAMANDEEP-A; Roving eye movements, no nystagmus Neck: Suple Lungs: CTA CVS: HRrrr Abdomen: Soft nontender Extremities: no sign edema Neurological: No vocal defici; still does not follow commands Skin: [] Lab/Tests/Diagnostic Imaging: [] (1) Dysphagia: Status: Acute Code(s): R13.10 - Dysphagia, unspecified SNOMED Code(s): 70537628 (2) Altered mental status: Status: Acute Code(s): R41.82 - Altered mental status, unspecified SNOMED Code(s): 685193038 (3) UTI (urinary tract infection): Status: Acute Code(s): N39.0 - Urinary tract infection, site not specified SNOMED Code(s): 73933619 (4) Altered mental status: Status: Acute Code(s): R41.82 - Altered mental status, unspecified SNOMED Code(s): 187724026 (5) Hypertension: Status: Acute Code(s): I10 - Essential (primary) hypertension SNOMED Code(s): 44341198 Plan: Continue present Therapy
--- NOTE | 2021-12-07 18:59 | PCM.PROG ---
Date Seen by Provider: 11/18/21 Time Seen by Provider: 08:50 Subjective: Pt has required IV medications for BP and sedatives for agitation. Resting well and is Asleep this morning. Aroused with stimulation but when aroused,is still confused.Does not follow commands and will not answer questions Still awaiting placement but this has been difficult given her condition.Considering oral medicaions for treatment if tolerates Objective: Vitals: T=98.1 F, P=88, R=16, BN=998/81, SPO2=96 HEENT: RAMANDEEP-A/ EOM upon volition but not by command Neck: supple. NO discomfort expressed upon ROM testing Lungs:CTA CVS: Hrrrr Abdomen: Soft non tender Extremities: NO clubbing or cyanosis Neurological: Non responsive to questioning Skin: W/D Lab/Tests/Diagnostic Imaging: [] (1) Dysphagia: Status: Acute Code(s): R13.10 - Dysphagia, unspecified SNOMED Code(s): 54938906 (2) Altered mental status: Status: Acute Code(s): R41.82 - Altered mental status, unspecified SNOMED Code(s): 302366280 (3) UTI (urinary tract infection): Status: Acute Code(s): N39.0 - Urinary tract infection, site not specified SNOMED Code(s): 40017005 (4) Altered mental status: Status: Acute Code(s): R41.82 - Altered mental status, unspecified SNOMED Code(s): 055587132 (5) Hypertension: Status: Acute Code(s): I10 - Essential (primary) hypertension SNOMED Code(s): 40411741 Plan: social services director for discharge planning Consider aditional evaluation ' Discuss with regarding discharge planning when at hospital
== END 2021-11-25 17:58 | disposition home or self-care (01) | DRG 948 ==
LOC: ED 13:39 → MEDSURG A 17:28
PROVIDERS: ADMIT Emergency Medicine; ATTEND Emergency Medicine
DX: Z20.822 Contact with and (suspected) exposure to COVID-19; N39.0 Urinary tract infection, site not specified; I69.320 Aphasia following cerebral infarction; R41.82 Altered mental status, unspecified; E03.9 Hypothyroidism, unspecified; L89.609 Pressure ulcer of unspecified heel, unspecified stage; I10 Essential (primary) hypertension; R13.10 Dysphagia, unspecified; F03.90 Unspecified dementia, unspecified severity, without behavioral disturbance, psychotic disturbance, mood disturbance, and anxiety

== ENCOUNTER 2023-09-04 05:10 | Observation (INO) ==
[2023-09-04] MEDS ORDERED: MORPHINE 2 MG/ML SYRINGE IVP ONE ×2 (05:14→07:07)
[2023-09-04] MEDS ORDERED: ZOFRAN 4 MG/2 ML IVP ONE ×2 (05:14→07:56)
--- NOTE | 2023-09-04 05:26 | ED.PDOC ---
General <TANI MEADE DO - Last Filed: 09/04/23 07:07> ED Provider: Dr. TANI MEADE DO Chief Complaint: Rectal Pain Stated Complaint: Mrs. Brown is a 78 yo F here for abdominal pain She arrives afebrile and vitally stable by EMS, no interventions en route She reports days of constipation relieved after enemat SNF, but now has abdominal pain RN at SNF thinks bob just wants to come to the hospital to see her who is admitted for pneumonia Patient alert and oriented x4 GCS 15, pleasant to speak with. Time Seen by Provider: 09/04/23 05:14 Information Source: Patient and EMT Primary Care Provider: FATOUMATA PEÑALOZA <KESHAV HANSEN MD - Last Filed: 09/04/23 18:59> Nursing and Triage Documentation Reviewed and Agree: Yes Review of Systems <TANI MEADE DO - Last Filed: 09/04/23 07:07> Review Of Systems Constitutional: Denies Chills or Fever Eyes: Denies Blindness or Foreign body sensation Ears, Nose, Mouth, Throat: Denies Ear pain or Mouth swelling Respiratory: Denies Cough or Wheezing Cardiac: Denies Chest pain or Syncope GI: Reports Abdominal pain; Denies Constipated or Diarrhea : Denies Burning or Dysuria Musculoskeletal: Denies Back pain or Joint pain Skin: Denies Bruising or Cyanosis Neurological: Denies Headache or Numbness Endocrine: Reports No symptoms Hematologic/Lymphatic: Reports No symptoms All Other Systems: Reviewed and Negative <KESHAV HANSEN MD - Last Filed: 09/04/23 18:59> Review Of Systems : Reports Dysuria (occasionally) PFSH <TANI MEADE DO - Last Filed: 09/04/23 07:07> Medical History half-way (current) use of insulin Z79.4 - half-way (current) use of insulin (ICD-10) Muscle weakness (generalized) M62.81 - Muscle weakness (generalized) (ICD-10) Other specified arthritis, unspecified site M13.80 - Other specified arthritis, unspecified site (ICD-10) Gastro-esophageal reflux disease without esophagitis K21.9 - Gastro-esophageal reflux disease without esophagitis (ICD-10) Essential (primary) hypertension I10 - Essential (primary) hypertension (ICD-10) Hypothyroidism, unspecified E03.9 - Hypothyroidism, unspecified (ICD-10) Other reduced mobility Z74.09 - Other reduced mobility (ICD-10) Cognitive communication deficit R41.841 - Cognitive communication deficit (ICD-10) 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 - 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 (ICD-10) Stricture of artery I77.1 - Stricture of artery (ICD-10) Difficulty in walking, not elsewhere classified R26.2 - Difficulty in walking, not elsewhere classified (ICD-10) Unsteadiness on feet R26.81 - Unsteadiness on feet (ICD-10) Feeding difficulties, unspecified R63.30 - Feeding difficulties, unspecified (ICD-10) Other abnormalities of gait and mobility R26.89 - Other abnormalities of gait and mobility (ICD-10) Chronic kidney disease, unspecified N18.9 - Chronic kidney disease, unspecified (ICD-10) Acute kidney failure, unspecified N17.9 - Acute kidney failure, unspecified (ICD-10) Type 2 diabetes mellitus with diabetic neuropathy, unspecified E11.40 - Type 2 diabetes mellitus with diabetic neuropathy, unspecified (ICD-10) Peripheral vascular disease, unspecified I73.9 - Peripheral vascular disease, unspecified (ICD-10) Cellulitis of left lower limb L03.116 - Cellulitis of left lower limb (ICD-10) Other chronic osteomyelitis, left tibia and fibula M86.662 - Other chronic osteomyelitis, left tibia and fibula (ICD-10) Left ankle injury S99.912A - Unspecified injury of left ankle, initial encounter (ICD-10) Hyperlipidemia E78.5 - Hyperlipidemia, unspecified (ICD-10) Diabetes E11.9 - Type 2 diabetes mellitus without complications (ICD-10) Family History MATERNAL GRANDMOTHER Diabetes Mother Hypertension Social History Smoking and tobacco status: Never smoker Alcohol intake: former Surgical History H/O: hysterectomy Z90.710 - Acquired absence of both cervix and uterus (ICD-10) Female Reproductive History Menstrual Hx Hysterectomy: Yes Physical Exam <TANI MEADE DO - Last Filed: 09/04/23 07:07> Physical Exam Appearance: Reports Well-appearing, Well-nourished and Obese Ill-appearing: Not Applicable Pain Distress: Not Applicable Eyes: Reports RAMANDEEP, EOMI and Conjunctiva clear ENT: Reports Ears normal, Nose normal and Oropharynx normal Neck: Supple Respiratory: Reports Airway patent, Breath sounds clear and Breath sounds equal Cardiovascular: Reports RRR, Pulses normal and No rub GI/: Reports Soft, Nontender, No masses and Other (No guarding or peritonitis, central abdominal obesity present) Musculoskeletal: Reports Normal strength, ROM intact and No edema Skin: Reports Warm, Dry, Normal color and Other (chronic pressure ulcers to ankles) Neurological: Reports Sensation intact and Motor intact Psychiatric: Reports Affect appropriate and Mood appropriate Interpretation <KESHAV HANSEN MD - Last Filed: 09/04/23 18:59> Radiology Interpretation Radiology Interpretation By: Radiologist Radiology Results: No acute changes Exam Interpreted: CT Scan (1. No inflammatory process, bowel or urinary obstruction 2. Small intestine diverticulosis. No evidence of acute diverticulitis 3. Small to moderate size hiatus hernia without complication 4. Prominent rectal stool retention.) Critical Care Note <KESHAV HANSEN MD - Last Filed: 09/04/23 18:59> Critical Care Note Total Critical Care Time (mins): 0 Comments: Discussed CT results also Discussed lab test result of Urinary tract infection and that she needs admission and IV fluids and IV antibiotics. Patient voice understaging and is willing to be admitted Called Hospitalist who accepted patient for admission requested Observation. Course <TANI MEADE DO - Last Filed: 09/04/23 07:07> Course 09/04/23 05:14 09/04/23 05:14 Orders, Labs, Meds: Lab Review 09/04/23 09/04/23 09/04/23 05:14 06:35 06:45 WBC 21.45 H RBC 4.54 Hgb 12.3 Hct 39.0 MCV 85.9 MCH 27.1 MCHC 31.5 L RDW Coeff of Afua 14.7 Plt Count 274 Immature Gran % (Auto) 0.4 Neut % (Auto) 74.2 Lymph % (Auto) 19.5 [place] % (Auto) 5.6 Eos % (Auto) 0.0 Baso % (Auto) 0.3 Neut # (Auto) 15.9 H Lymph # (Auto) 4.2 H [place] # (Auto) 1.2 Eos # (Auto) 0.0 Baso # (Auto) 0.1 Immature Gran # (Auto) 0.1 Sodium 134.6 Potassium 4.03 Chloride 106.7 Carbon Dioxide 20.8 L Anion Gap 11.13 BUN 19.9 H Creatinine 0.85 Estimated GFR (MDRD) 65.00 BUN/Creatinine Ratio 23.41 Glucose 195.9 H Lactic Acid 0.98 Calcium 8.59 Total Bilirubin 0.51 AST 33.4 ALT 20.1 Alkaline Phosphatase 146.6 H Total Protein 6.21 L Albumin 3.25 L Globulin 2.96 Albumin/Globulin Ratio 1.09 Lipase 12.7 L Urine Color Yellow Urine Clarity Slightly Urine pH 5.5 Ur Specific [place] 1.015 Urine Protein 1+ H Urine Glucose (UA) Negative Urine Ketones 1+ H Urine Blood Negative Urine Nitrite Positive H Urine Bilirubin Negative Urine Urobilinogen 0.2 Ur Leukocyte Esterase 1+ H Urine Microscopic WBC 50-100 Ur Squamous Epith Cells Not present Urine Bacteria 3+ SARS CoV-2 RNA Rapid GONZALES Negative Orders Category Date Time Status PLACE PATIENT OBSERVATION .TO [facility] (MONITORED BED ADMISSION 09/04/23 07:33 Active ) ACTIVITY .Up With Assistance CARE 09/04/23 07:33 Active GIVE HS SNACK 2100 CARE 09/04/23 07:37 Active INTAKE & OUTPUT Q8HR CARE 09/04/23 07:34 Active IP: INSERT SALINE LOCK ONCE CARE 09/04/23 07:34 Active NPO REMINDER: IMAGING ONCE CARE 09/04/23 05:15 Completed TELEMETRY MONITORING TELE CARE 09/04/23 07:35 Active VITAL SIGNS Q4HR CARE 09/04/23 07:34 Active ADA 1800 JOSE. DIET DIETARY 09/04/23 Breakfast Ordered HS SNACK DIETARY 09/04/23 Dinner Ordered CBC W/ AUTO DIFF DAILY@0600 LAB 09/05/23 06:00 Ordered CBC W/ AUTO DIFF DAILY@0600 LAB 09/06/23 06:00 Ordered CBC W/ AUTO DIFF Stat LAB 09/04/23 05:14 Completed COMPREHENSIVE METABOLIC PANEL Stat LAB 09/04/23 05:14 Completed LACTIC ACID Stat LAB 09/04/23 05:14 Completed LIPASE Stat LAB 09/04/23 05:14 Completed SARS COV-2 RNA RAPID GONZALES Stat LAB 09/04/23 06:35 Completed URINALYSIS C & S IF INDICATED Stat LAB 09/04/23 06:45 Completed URINE CULTURE Stat LAB 09/04/23 06:45 Received Acetaminophen [Tylenol] Meds 09/04/23 07:39 Active 650 mg PO Q4H PRN Ceftriaxone/D5w 1 gm Premix [Rocephin 1 gm/50 ml D5w] Meds 09/05/23 09:00 Discontinued 1 gm in 50 ml IV DAILY Ceftriaxone/D5w 1 gm Premix [Rocephin 1 gm/50 ml D5w] Meds 09/04/23 07:17 Discontinued 1 gm in 50 ml IV ONCE Morphine Sulfate [Morphine 2 mg/ml Syringe] Meds 09/04/23 05:14 Discontinued 2 mg IVP ONCE ONE Morphine Sulfate [Morphine 2 mg/ml Syringe] Meds 09/04/23 07:07 Discontinued 2 mg IVP ONCE ONE Ondansetron HCl/Pf [Zofran 4 mg/2 ml] Meds 09/04/23 05:14 Discontinued 4 mg IVP ONCE ONE Silver Sulfadiazine [Silvadene Cream] Meds 09/04/23 07:03 Discontinued 1 applic TP .STK-MED ONE Silver Sulfadiazine [Silvadene Cream] Meds 09/04/23 07:06 Discontinued 1 applic TP ONCE ONE Sodium Chloride 0.9% [Sodium Chloride] 1,000 ml Meds 09/04/23 08:00 Active IV 125 mls/hr Sodium Chloride 0.9% [Sodium Chloride] 1,000 ml Meds 09/04/23 07:12 Discontinued IV BOLUS RESUSCITATION STATUS Routine OTHERS 09/04/23 07:[address] ABDOMEN/PELVIS W CONTRAST Stat RADS 09/04/23 05:14 Completed Medications Generic Name Dose Route Start Last Admin Trade Name Freq PRN Reason Stop Dose Admin Acetaminophen 650 mg 09/04/23 07:39 09/04/23 11:16 Acetaminophen 325 Mg Tablet PO 650 mg Q4H PRN Administration Mild Pain Amitriptyline HCl 25 mg 09/04/23 21:00 Amitriptyline Hcl 25 Mg Tablet PO BEDTIME [facility] Amlodipine Besylate 2.5 mg 09/05/23 09:00 Amlodipine Besylate 5 Mg Tablet PO DAILY [facility] Ascorbic Acid 500 mg 09/05/23 09:00 Ascorbic Acid 500 Mg Tablet PO DAILY NATHAN Aspirin 81 mg 09/05/23 09:00 Aspirin 81 Mg Tab.Chew PO DAILY [facility] Atorvastatin Calcium 40 mg 09/04/23 21:00 Atorvastatin Calcium 20 Mg Tablet PO BEDTIME NATHAN Bisacodyl 10 mg 09/04/23 13:04 Bisacodyl 10 Mg Supp.Rect RC DAILY PRN Constipation Cholecalciferol 1,000 unit 09/05/23 09:00 Cholecalciferol (Vitamin D3) 1,000 Unit (25 Mcg) Tablet PO DAILY [facility] Clopidogrel Bisulfate 75 mg 09/05/23 09:00 Clopidogrel Bisulfate 75 Mg Tablet PO DAILY [facility] Collagenase 1 applic 09/05/23 09:00 Collagenase Clostridium Hist 30 Gm Oint TP DAILY [facility] Famotidine 20 mg 09/04/23 21:00 Famotidine 20 Mg Tablet PO BID NATHAN Sodium Chloride 1,000 mls @ 125 mls/hr 09/04/23 08:00 09/04/23 11:04 Sodium Chloride IV 125 mls/hr .Q8H NATHAN Administration Levofloxacin/Dextrose 750 mg in 150 mls @ 100 mls/hr 09/05/23 21:00 Levaquin 750 Mg/150 Ml D5w IV 09/08/23 20:59 BEDTIME NATHAN Insulin Glargine 10 unit 09/04/23 17:00 09/04/23 16:51 Insulin Glargine,Hum.Rec.Anlog 100 Units/Ml SUBCUT 10 unit QPM NATHAN Administration Insulin Human Regular 0 unit 09/04/23 10:21 09/04/23 11:43 Insulin Regular, Human 100 Unit/Ml (3ml) Vial SUBCUT 3 unit PRN PRN Administration Hyperglycemia Protocol Non-Formulary Medication 1 applic 09/04/23 16:30 09/04/23 16:34 Nonformulary TP 1 applic BID NATHAN Administration Oxycodone/Acetaminophen 1 tab 09/04/23 13:04 Oxycodone/Acetaminophen 5/325 Mg Tablet PO Q4H PRN Pain Discontinued Medications Generic Name Dose Route Start Last Admin Trade Name Freq PRN Reason Stop Dose Admin Nifedipine 0.2% 1 applic/ 0 each 09/04/23 14:00 Lidocaine 4% 1 applic .ROUTE BID NATHAN Sodium Chloride 1,000 mls @ 1,000 mls/hr 09/04/23 07:12 09/04/23 11:27 Sodium Chloride IV 09/04/23 08:11 Infused BOLUS STA Infusion CEFTRIAXONE/D5W 1 GM PREMIX 1 gm in 50 mls @ 75 mls/hr 09/04/23 07:17 09/04/23 07:43 Rocephin 1 Gm/50 Ml D5w IV 09/04/23 07:56 75 mls/hr ONCE STA Administration CEFTRIAXONE/D5W 1 GM PREMIX 1 gm in 50 mls @ 75 mls/hr 09/05/23 09:00 Rocephin 1 Gm/50 Ml D5w IV 09/08/23 08:59 DAILY NATHAN Magnesium Citrate 10 oz 09/04/23 09:35 09/04/23 11:26 Magnesium Citrate 10 Oz Lauren PO 09/04/23 09:36 Not Given ONCE ONE Morphine Sulfate 2 mg 09/04/23 05:14 09/04/23 06:03 Morphine Sulfate 2 Mg/Ml Syringe IVP 09/04/23 05:15 2 mg ONCE ONE Administration Morphine Sulfate 2 mg 09/04/23 07:07 09/04/23 09:27 Morphine Sulfate 2 Mg/Ml Syringe IVP 09/04/23 07:08 Not Given ONCE ONE Ondansetron HCl 4 mg 09/04/23 05:14 09/04/23 06:03 Ondansetron Hcl/Pf 4 Mg/2 Ml Sdv IVP 09/04/23 05:15 4 mg ONCE ONE Administration Ondansetron HCl 4 mg 09/04/23 07:56 09/04/23 09:25 Ondansetron Hcl/Pf 4 Mg/2 Ml Sdv IVP 09/04/23 07:57 Not Given ONCE ONE Silver Sulfadiazine 1 applic 09/04/23 07:06 09/04/23 07:48 Silver Sulfadiazine 50 Gm Cream TP 09/04/23 07:07 1 applic ONCE ONE Administration Vital Signs: Temp Pulse Resp BP Pulse Ox 09/04/23 05:12 98 F 90 18 136/82 98 SBAR sin out to Dr. Hansen <KESHAV HANSEN MD - Last Filed: 09/04/23 18:59> Course Orders, Labs, Meds: Lab Review 09/04/23 09/04/23 09/04/23 05:14 06:35 06:45 WBC 21.45 H RBC 4.54 Hgb 12.3 Hct 39.0 MCV 85.9 MCH 27.1 MCHC 31.5 L RDW Coeff of Afua 14.7 Plt Count 274 Immature Gran % (Auto) 0.4 Neut % (Auto) 74.2 Lymph % (Auto) 19.5 [place] % (Auto) 5.6 Eos % (Auto) 0.0 Baso % (Auto) 0.3 Neut # (Auto) 15.9 H Lymph # (Auto) 4.2 H [place] # (Auto) 1.2 Eos # (Auto) 0.0 Baso # (Auto) 0.1 Immature Gran # (Auto) 0.1 Sodium 134.6 Potassium 4.03 Chloride 106.7 Carbon Dioxide 20.8 L Anion Gap 11.13 BUN 19.9 H Creatinine 0.85 Estimated GFR (MDRD) 65.00 BUN/Creatinine Ratio 23.41 Glucose 195.9 H Lactic Acid 0.98 Calcium 8.59 Total Bilirubin 0.51 AST 33.4 ALT 20.1 Alkaline Phosphatase 146.6 H Total Protein 6.21 L Albumin 3.25 L Globulin 2.96 Albumin/Globulin Ratio 1.09 Lipase 12.7 L Urine Color Yellow Urine Clarity Slightly Urine pH 5.5 Ur Specific [place] 1.015 Urine Protein 1+ H Urine Glucose (UA) Negative Urine Ketones 1+ H Urine Blood Negative Urine Nitrite Positive H Urine Bilirubin Negative Urine Urobilinogen 0.2 Ur Leukocyte Esterase 1+ H Urine Microscopic WBC 50-100 Ur Squamous Epith Cells Not present Urine Bacteria 3+ SARS CoV-2 RNA Rapid GONZALES Negative Orders Category Date Time Status PLACE PATIENT OBSERVATION .TO [facility] (MONITORED BED ADMISSION 09/04/23 07:33 Active ) ACTIVITY .Up With Assistance CARE 09/04/23 07:33 Active GIVE HS SNACK 2100 CARE 09/04/23 07:37 Active INTAKE & OUTPUT Q8HR CARE 09/04/23 07:34 Active IP: INSERT SALINE LOCK ONCE CARE 09/04/23 07:34 Active NPO REMINDER: IMAGING ONCE CARE 09/04/23 05:15 Completed TELEMETRY MONITORING TELE CARE 09/04/23 07:35 Active VITAL SIGNS Q4HR CARE 09/04/23 07:34 Active ADA 1800 JOSE. DIET DIETARY 09/04/23 Breakfast Ordered HS SNACK DIETARY 09/04/23 Dinner Ordered CBC W/ AUTO DIFF DAILY@0600 LAB 09/05/23 06:00 Ordered CBC W/ AUTO DIFF DAILY@0600 LAB 09/06/23 06:00 Ordered CBC W/ AUTO DIFF Stat LAB 09/04/23 05:14 Completed COMPREHENSIVE METABOLIC PANEL Stat LAB 09/04/23 05:14 Completed LACTIC ACID Stat LAB 09/04/23 05:14 Completed LIPASE Stat LAB 09/04/23 05:14 Completed SARS COV-2 RNA RAPID GONZALES Stat LAB 09/04/23 06:35 Completed URINALYSIS C & S IF INDICATED Stat LAB 09/04/23 06:45 Completed URINE CULTURE Stat LAB 09/04/23 06:45 Received Acetaminophen [Tylenol] Meds 09/04/23 07:39 Active 650 mg PO Q4H PRN Ceftriaxone/D5w 1 gm Premix [Rocephin 1 gm/50 ml D5w] Meds 09/05/23 09:00 Discontinued 1 gm in 50 ml IV DAILY Ceftriaxone/D5w 1 gm Premix [Rocephin 1 gm/50 ml D5w] Meds 09/04/23 07:17 Discontinued 1 gm in 50 ml IV ONCE Morphine Sulfate [Morphine 2 mg/ml Syringe] Meds 09/04/23 05:14 Discontinued 2 mg IVP ONCE ONE Morphine Sulfate [Morphine 2 mg/ml Syringe] Meds 09/04/23 07:07 Discontinued 2 mg IVP ONCE ONE Ondansetron HCl/Pf [Zofran 4 mg/2 ml] Meds 09/04/23 05:14 Discontinued 4 mg IVP ONCE ONE Silver Sulfadiazine [Silvadene Cream] Meds 09/04/23 07:03 Discontinued 1 applic TP .STK-MED ONE Silver Sulfadiazine [Silvadene Cream] Meds 09/04/23 07:06 Discontinued 1 applic TP ONCE ONE Sodium Chloride 0.9% [Sodium Chloride] 1,000 ml Meds 09/04/23 08:00 Active IV 125 mls/hr Sodium Chloride 0.9% [Sodium Chloride] 1,000 ml Meds 09/04/23 07:12 Discontinued IV BOLUS RESUSCITATION STATUS Routine OTHERS 09/04/23 07:[address] ABDOMEN/PELVIS W CONTRAST Stat RADS 09/04/23 05:14 Completed Medications Generic Name Dose Route Start Last Admin Trade Name Freq PRN Reason Stop Dose Admin Acetaminophen 650 mg 09/04/23 07:39 09/04/23 11:16 Acetaminophen 325 Mg Tablet PO 650 mg Q4H PRN Administration Mild Pain Amitriptyline HCl 25 mg 09/04/23 21:00 Amitriptyline Hcl 25 Mg Tablet PO BEDTIME [facility] Amlodipine Besylate 2.5 mg 09/05/23 09:00 Amlodipine Besylate 5 Mg Tablet PO DAILY [facility] Ascorbic Acid 500 mg 09/05/23 09:00 Ascorbic Acid 500 Mg Tablet PO DAILY [facility] Aspirin 81 mg 09/05/23 09:00 Aspirin 81 Mg Tab.Chew PO DAILY [facility] Atorvastatin Calcium 40 mg 09/04/23 21:00 Atorvastatin Calcium 20 Mg Tablet PO BEDTIME [facility] Bisacodyl 10 mg 09/04/23 13:04 Bisacodyl 10 Mg Supp.Rect RC DAILY PRN Constipation Cholecalciferol 1,000 unit 09/05/23 09:00 Cholecalciferol (Vitamin D3) 1,000 Unit (25 Mcg) Tablet PO DAILY [facility] Clopidogrel Bisulfate 75 mg 09/05/23 09:00 Clopidogrel Bisulfate 75 Mg Tablet PO DAILY [facility] Collagenase 1 applic 09/05/23 09:00 Collagenase Clostridium Hist 30 Gm Oint TP DAILY [facility] Famotidine 20 mg 09/04/23 21:00 Famotidine 20 Mg Tablet PO BID [facility] Sodium Chloride 1,000 mls @ 125 mls/hr 09/04/23 08:00 09/04/23 11:04 Sodium Chloride IV 125 mls/hr .Q8H [facility] Administration Levofloxacin/Dextrose 750 mg in 150 mls @ 100 mls/hr 09/05/23 21:00 Levaquin 750 Mg/150 Ml D5w IV 09/08/23 20:59 BEDTIME [facility] Insulin Glargine 10 unit 09/04/23 17:00 09/04/23 16:51 Insulin Glargine,Hum.Rec.Anlog 100 Units/Ml SUBCUT 10 unit QPM [facility] Administration Insulin Human Regular 0 unit 09/04/23 10:21 09/04/23 11:43 Insulin Regular, Human 100 Unit/Ml (3ml) Vial SUBCUT 3 unit PRN PRN Administration Hyperglycemia Protocol Non-Formulary Medication 1 applic 09/04/23 16:30 09/04/23 16:34 Nonformulary TP 1 applic BID [facility] Administration Oxycodone/Acetaminophen 1 tab 09/04/23 13:04 Oxycodone/Acetaminophen 5/325 Mg Tablet PO Q4H PRN Pain Discontinued Medications Generic Name Dose Route Start Last Admin Trade Name Paulino PRN Reason Stop Dose Admin Nifedipine 0.2% 1 applic/ 0 each 09/04/23 14:00 Lidocaine 4% 1 applic .ROUTE BID NATHAN Sodium Chloride 1,000 mls @ 1,000 mls/hr 09/04/23 07:12 09/04/23 11:27 Sodium Chloride IV 09/04/23 08:11 Infused BOLUS STA Infusion CEFTRIAXONE/D5W 1 GM PREMIX 1 gm in 50 mls @ 75 mls/hr 09/04/23 07:17 09/04/23 07:43 Rocephin 1 Gm/50 Ml D5w IV 09/04/23 07:56 75 mls/hr ONCE STA Administration CEFTRIAXONE/D5W 1 GM PREMIX 1 gm in 50 mls @ 75 mls/hr 09/05/23 09:00 Rocephin 1 Gm/50 Ml D5w IV 09/08/23 08:59 DAILY NATHAN Magnesium Citrate 10 oz 09/04/23 09:35 09/04/23 11:26 Magnesium Citrate 10 Oz Lauren PO 09/04/23 09:36 Not Given ONCE ONE Morphine Sulfate 2 mg 09/04/23 05:14 09/04/23 06:03 Morphine Sulfate 2 Mg/Ml Syringe IVP 09/04/23 05:15 2 mg ONCE ONE Administration Morphine Sulfate 2 mg 09/04/23 07:07 09/04/23 09:27 Morphine Sulfate 2 Mg/Ml Syringe IVP 09/04/23 07:08 Not Given ONCE ONE Ondansetron HCl 4 mg 09/04/23 05:14 09/04/23 06:03 Ondansetron Hcl/Pf 4 Mg/2 Ml Sdv IVP 09/04/23 05:15 4 mg ONCE ONE Administration Ondansetron HCl 4 mg 09/04/23 07:56 09/04/23 09:25 Ondansetron Hcl/Pf 4 Mg/2 Ml Sdv IVP 09/04/23 07:57 Not Given ONCE ONE Silver Sulfadiazine 1 applic 09/04/23 07:06 09/04/23 07:48 Silver Sulfadiazine 50 Gm Cream TP 09/04/23 07:07 1 applic ONCE ONE Administration Vital Signs: Temp Pulse Resp BP Pulse Ox 09/04/23 05:12 98 F 90 18 136/82 98 Discharge Plan Discharge Patient Disposition: ADMITTED INPATIENT Discharge Problem: UTI (urinary tract infection) Qualifiers: Urinary tract infection type: acute cystitis Hematuria presence: without hematuria Qualified Code(s): N30.00 - Acute cystitis without hematuria Did you review [place] [employer] for ALL controlled substances?: Not Applicable ED Provider: TANI MEADE <TANI MEADE DO - Last Filed: 09/04/23 07:07> Physician Progress Note: []
[2023-09-04 05:39] LABS: BASOPHILS # (AUTO) 0.1 K/uL (0-0.2); BASOPHILS % (AUTO) 0.3 % (0.0-3.0); HEMOGLOBIN 12.3 g/dl (12.0-16.0); IMMATURE GRANULOCYTE # (AUTO) 0.1 (0.0-1.0); IMMATURE GRANULOCYTE % (AUTO) 0.4 % (0.0-5.0); LYMPHOCYTES # (AUTO) 4.2 K/uL (0.60-3.4); LYMPHOCYTES % (AUTO) 19.5 (10.0-50.0); MEAN CORPUSCULAR HEMOGLOBIN 27.1 pg (27.0-31.0); MEAN CORPUSCULAR HGB CONC 31.5 (31.8-35.4); MEAN CORPUSCULAR VOLUME 85.9 fl (81.0-99.0); MONOCYTES # (AUTO) 1.2 K/uL (0.4-2.0); MONOCYTES % (AUTO) 5.6 (0-10); NEUTROPHILS # (AUTO) 15.9 K/ul (2.0-6.9); NEUTROPHILS % (AUTO) 74.2 % (42.2-75.2); PLATELET COUNT 274 10^3/uL (140-440); RDW COEFFICIENT OF VARIATION 14.7 % (11.6-14.8); RED BLOOD COUNT 4.54 10^6/ul (4.20-5.40); WHITE BLOOD COUNT 21.45 K/ul (4.6-10.2)
[2023-09-04 06:02] LABS: ALANINE AMINOTRANSFERASE 20.1 U/L (0-35); ALBUMIN 3.25 g/dL (3.5-5.0); ALKALINE PHOSPHATASE 146.6 U/L (53-141); ASPARTATE AMINO TRANSFERASE 33.4 U/L (14-36); BILIRUBIN,TOTAL 0.51 mg/dL (0.2-1.3); BLOOD UREA NITROGEN 19.9 mg/dL (7-17); CALCIUM 8.59 mg/dL (8.4-10.2); CARBON DIOXIDE 20.8 mmol/L (22-30.0); CHLORIDE 106.7 mmol/L (98-107); CREATININE 0.85 mg/dL (0.60-1.30); GLUCOSE 195.9 mg/dL (74-106); LIPASE 12.7 U/L (23-300); POTASSIUM 4.03 mmol/L (3.5-5.1); SODIUM 134.6 mmol/L (134.5-145); TOTAL PROTEIN 6.21 g/dL (6.3-8.2)
--- NOTE | 2023-09-04 07:00 | CT ---
EXAM: CT OF THE ABDOMEN AND PELVIS WITH CONTRAST History: Rectal pain Technique: [address] of the abdomen and pelvis following intravenous contrast FINDINGS: The lung bases are clear. No significant liver abnormality. The adrenals, pancreas and s pleen are unremarkable. Small hiatus hernia. Prior cholecystectomy. Bilateral sub centimeter simpl e renal cyst. Normal kidneys and collecting system otherwise. The appendix is normal. Bowel loops demonstrate normal caliber. No inflamatory change seen in the mesentery or retroperitoneum. Distal small intestine diverticulosis noted. Atherosclerotic calcification of the aorta without aneurysm. Atherosclerotic calcification of the aorta without aneurysm. Moderate distal stool retention. Prior hysterectomy. Nondistended urinary bladder. No pelvic fat i nflammation. No acute findings of the skeleton. Impression: 1. No inflammatory process, bowel or urinary obstruction 2. Small intestine diverticulosis. No evidence of acute diverticulitis 3. Small to moderate size hiatus hernia without complication 4. Prominent rectal stool retention. All CT scans are performed using dose optimization techniques as appropriate to the performed exam an d include at least one of the following: Automated exposure control, adjustment of the mA and/or kV according t o size, and the use of iterative reconstruction technique.
[2023-09-04] MEDS ORDERED: SILVADENE CREAM TP ONE ×2 (07:03→07:06)
[2023-09-04 07:08] LABS: BILIRUBIN,URINE Negative (NEGATIVE); CLARITY,URINE Slightly (CLEAR); COLOR,URINE Yellow (YELLOW); GLUCOSE, URINE (UA) Negative (NEGATIVE); KETONES,URINE 1+ (NEGATIVE); LEUKOCYTE ESTERASE ,URINE 1+ (NEGATIVE); NITRITE,URINE Positive (NEGATIVE); PH,URINE 5.5 (5-9); PROTEIN,URINE 1+ (NEGATIVE); URINE, BLOOD Negative (NEGATIVE); UROBILINOGEN,URINE 0.2 (0.2)
[2023-09-04] MEDS ORDERED: SODIUM CHLORIDE 1,000 ML IV STA (07:12)
[2023-09-04 07:15] LABS: SQUAMOUS EPITHELIAL CELL,UR NOT PRESENT (0-5)
[2023-09-04 07:16] LABS: BACTERIA,URINE 3+ (NOT PRESENT); URINE WBC, MICROSCOPIC 50-100 (0-2)
[2023-09-04 07:17] LABS: SARS COV-2 RNA RAPID NAAT NEGATIVE (NEGATIVE)
[2023-09-04] MEDS ORDERED: ROCEPHIN 1 GM/50 ML D5W 1 GM/50 ML BAG IV STA (07:17)
[2023-09-04] MEDS ORDERED: LOVENOX SUBCUT SCH (09:00)
[2023-09-04 09:26] VITALS: BMI 29.9
[2023-09-04] MEDS ORDERED: CITRATE OF MAGNESIA PO ONE (09:35)
--- NOTE | 2023-09-04 10:21 | PCM ---
Date of Service Date Seen by Provider: 09/04/23 Time Seen by Provider: 09:20 Admit Day/Time Admission Date: 09/04/23 Admission Time: 07:30 Reason for Admission Chief Complaint: UTI Hospital Provider Hospital Provider: SHIRA NGUYEN, [facility] Primary Care Physician Primary Care Physician: FATOUMATA PEÑALOZA History of Present Illness History of Present Illness: 78 yo female presented to the ER from [facility] for abdominal pain/constipation. Patient reports that she has not had a bowel movement in over a week. She had taken all of her oral prn medications for constipation and was given an enema at the [facility] without relief. States pain has persisted and has rectal pressure at this time. She was found to have a UTI in the ER. Does complain of burning on urinary and some frequency/urgency. Denies fever, chills, N/V, SOB, chest pain. Case Discussed With Case Discussed With: Patient's case was discussed with the ER Physicians, Dr. Mclean. 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 (ICD-10) Muscle weakness (generalized) M62.81 - Muscle weakness (generalized) (ICD-10) Other specified arthritis, unspecified site M13.80 - Other specified arthritis, unspecified site (ICD-10) Gastro-esophageal reflux disease without esophagitis K21.9 - Gastro-esophageal reflux disease without esophagitis (ICD-10) Essential (primary) hypertension I10 - Essential (primary) hypertension (ICD-10) Hypothyroidism, unspecified E03.9 - Hypothyroidism, unspecified (ICD-10) Other reduced mobility Z74.09 - Other reduced mobility (ICD-10) Cognitive communication deficit R41.841 - Cognitive communication deficit (ICD-10) 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 - 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 (ICD-10) Stricture of artery I77.1 - Stricture of artery (ICD-10) Difficulty in walking, not elsewhere classified R26.2 - Difficulty in walking, not elsewhere classified (ICD-10) Unsteadiness on feet R26.81 - Unsteadiness on feet (ICD-10) Feeding difficulties, unspecified R63.30 - Feeding difficulties, unspecified (ICD-10) Other abnormalities of gait and mobility R26.89 - Other abnormalities of gait and mobility (ICD-10) Chronic kidney disease, unspecified N18.9 - Chronic kidney disease, unspecified (ICD-10) Acute kidney failure, unspecified N17.9 - Acute kidney failure, unspecified (ICD-10) Type 2 diabetes mellitus with diabetic neuropathy, unspecified E11.40 - Type 2 diabetes mellitus with diabetic neuropathy, unspecified (ICD-10) Peripheral vascular disease, unspecified I73.9 - Peripheral vascular disease, unspecified (ICD-10) Cellulitis of left lower limb L03.116 - Cellulitis of left lower limb (ICD-10) Other chronic osteomyelitis, left tibia and fibula M86.662 - Other chronic osteomyelitis, left tibia and fibula (ICD-10) Left ankle injury S99.912A - Unspecified injury of left ankle, initial encounter (ICD-10) Hyperlipidemia E78.5 - Hyperlipidemia, unspecified (ICD-10) Diabetes E11.9 - Type 2 diabetes mellitus without complications (ICD-10) Surgical History H/O: hysterectomy Z90.710 - Acquired absence of both cervix and uterus (ICD-10) Family History MATERNAL GRANDMOTHER Diabetes Mother Hypertension Social History Smoking and tobacco status: Never smoker Alcohol intake: former Allergies Allergies Allergy/AdvReac Type Severity Reaction Status Date / Time No Known Allergies Allergy Verified 09/04/23 05:22 Current Medications Home Medications acetaminophen 325 mg tablet 325 mg PO BID PRN Analgesia 11/10/21 [History Confirmed 09/04/23 Last Taken Unknown] Santyl External Ointment 250 UNIT/GM (Collagenase) See Rx Instructions topical DAILY 09/04/23 [History Confirmed 09/04/23 Last Taken Unknown] Zinc Oral Tab 25 mcg PO DAILY 09/04/23 [History Confirmed 09/04/23 Last Taken Unknown] amitriptyline 25 mg tablet 25 mg PO BEDTIME 09/04/23 [History Confirmed 09/04/23 Last Taken Unknown] amlodipine 2.5 mg tablet 2.5 mg PO DAILY 09/04/23 [History Confirmed 09/04/23 Last Taken Unknown] ascorbic acid (vitamin C) 500 mg tablet 500 mg PO DAILY 09/04/23 [History Confirmed 09/04/23 Last Taken Unknown] aspirin 81 mg chewable tablet 81 mg PO DAILY 09/04/23 [History Confirmed 09/04/23 Last Taken Unknown] atorvastatin 40 mg tablet (Lipitor) 40 mg PO BEDTIME 09/04/23 [History Confirmed 09/04/23 Last Taken Unknown] bisacodyl 10 mg rectal suppository (Dulcolax (bisacodyl)) 10 mg ID DAILY PRN constipation 09/04/23 [History Confirmed 09/04/23 Last Taken Unknown] carisoprodol 350 mg tablet 350 mg PO QID PRN pain 09/04/23 [History Confirmed 09/04/23 Last Taken Unknown] cholecalciferol (vitamin D3) 25 mcg (1,000 unit) capsule 25 mcg PO DAILY 09/04/23 [History Confirmed 09/04/23 Last Taken Unknown] clopidogrel 75 mg tablet (Plavix) 75 mg PO DAILY 09/04/23 [History Confirmed 09/04/23 Last Taken Unknown] diphenhydramine HCl 25 mg tablet (Allergy (diphenhydramine)) 25 mg PO Q8H PRN itching 09/04/23 [History Confirmed 09/04/23 Last Taken Unknown] famotidine 20 mg tablet (Acid Controller) 20 mg PO BID 09/04/23 [History Confirmed 09/04/23 Last Taken Unknown] insulin glargine 100 unit/mL subcutaneous solution (Lantus U-100 Insulin) 10 unit subcut QPM 09/04/23 [History Confirmed 09/04/23 Last Taken Unknown] insulin lispro 100 unit/mL subcutaneous pen (Humalog KwikPen (U-100) Insulin) 1 sliding scale dose subcut DIRECTED 09/04/23 [History Confirmed 09/04/23 Last Taken Unknown] magnesium hydroxide 400 mg/5 mL oral suspension (Milk of Magnesia) 30 ml PO DAILY PRN constipation 09/04/23 [History Confirmed 09/04/23 Last Taken Unknown] multivitamin with iron-mineral (Super Multiple tablet) 1 tab PO DAILY 09/04/23 [History Confirmed 09/04/23 Last Taken Unknown] naloxone 4 mg/actuation nasal spray 1 spray intranasal Q2-3M PRN opioid overdose 09/04/23 [History Confirmed 09/04/23 Last Taken Unknown] nystatin 100,000 unit/gram topical cream 1 applic topical BID 09/04/23 [History Confirmed 09/04/23 Last Taken Unknown] ondansetron 4 mg disintegrating tablet 4 mg PO Q8H PRN nausea and vomiting 09/04/23 [History Confirmed 09/04/23 Last Taken Unknown] oxybutynin chloride 5 mg tablet 5 mg PO Q8H PRN stress incontinence 09/04/23 [History Confirmed 09/04/23 Last Taken Unknown] oxycodone-acetaminophen 5 mg-325 mg tablet 1 tab PO Q4H PRN pain 09/04/23 [History Confirmed 09/04/23 Last Taken Unknown] polyethylene glycol 3350 17 gram/dose oral powder (ClearLax) 17 g PO DAILY PRN constipation 09/04/23 [History Confirmed 09/04/23 Last Taken Unknown] sennosides 8.6 mg-docusate sodium 50 mg tablet 1 tab-cap PO DAILY PRN constipation 09/04/23 [History Confirmed 09/04/23 Last Taken Unknown] Home Acetaminophen (Acetaminophen 325 Mg Tablet) 650 mg PO Q4H PRN PRN Reason: Mild Pain Sodium Chloride (Sodium Chloride) 1,000 mls @ 125 mls/hr IV .Q8H NATHAN CEFTRIAXONE/D5W 1 GM PREMIX (Rocephin 1 Gm/50 Ml D5w) 1 gm in 50 mls @ 75 mls/hr IV DAILY NATHAN Stop: 09/08/23 08:59 Insulin Human Regular (Insulin Regular, Human 100 Unit/Ml (3ml) Vial) 0 unit SUBCUT PRN PRN; Protocol PRN Reason: Hyperglycemia Discontinued Medications Sodium Chloride (Sodium Chloride) 1,000 mls @ 1,000 mls/hr IV BOLUS STA Stop: 09/04/23 08:11 Last Admin: 09/04/23 07:38 Dose: 1,000 mls/hr CEFTRIAXONE/D5W 1 GM PREMIX (Rocephin 1 Gm/50 Ml D5w) 1 gm in 50 mls @ 75 mls/hr IV ONCE STA Stop: 09/04/23 07:56 Last Admin: 09/04/23 07:43 Dose: 75 mls/hr Magnesium Citrate (Magnesium Citrate 10 Oz Lauren) 10 oz PO ONCE ONE Stop: 09/04/23 09:36 Morphine Sulfate (Morphine Sulfate 2 Mg/Ml Syringe) 2 mg IVP ONCE ONE Stop: 09/04/23 05:15 Last Admin: 09/04/23 06:03 Dose: 2 mg Morphine Sulfate (Morphine Sulfate 2 Mg/Ml Syringe) 2 mg IVP ONCE ONE Stop: 09/04/23 07:08 Last Admin: 09/04/23 09:27 Dose: Not Given Ondansetron HCl (Ondansetron Hcl/Pf 4 Mg/2 Ml Sdv) 4 mg IVP ONCE ONE Stop: 09/04/23 05:15 Last Admin: 09/04/23 06:03 Dose: 4 mg Ondansetron HCl (Ondansetron Hcl/Pf 4 Mg/2 Ml Sdv) 4 mg IVP ONCE ONE Stop: 09/04/23 07:57 Last Admin: 09/04/23 09:25 Dose: Not Given Silver Sulfadiazine (Silver Sulfadiazine 50 Gm Cream) 1 applic TP ONCE ONE Stop: 09/04/23 07:07 Last Admin: 09/04/23 07:48 Dose: 1 applic Review of Systems Constitutional: Reports No symptoms Head: Reports Normocephalic Eyes: Reports No symptoms Ears: Reports No symptoms Nose: Reports No symptoms Mouth: Reports No symptoms Throat: Reports No symptoms Cardiovascular: Reports No symptoms Respiratory: Reports No symptoms Gastrointestinal: Reports Constipation and Abdominal pain Genitourinary: Reports Dysuria and Frequency Musculoskeletal: Reports No symptoms Endocrine: Reports No symptoms Hematology: Reports No symptoms Immunology: Reports No symptoms Neurological: Reports No symptoms Psychiatric: Reports No symptoms Physical examination Most Recent Vital Signs: Most Recent Vital Signs Temperature 97.9 F 09/04/23 08:59 Temperature Source Oral 09/04/23 08:59 Temperature Source Infrared 09/04/23 05:12 Pulse Rate 87 09/04/23 08:59 Respiratory Rate 18 09/04/23 08:59 Blood Pressure 156/86 H 09/04/23 08:07 Blood Pressure Left Arm 169/88 09/04/23 08:59 Blood Pressure Position Supine 09/04/23 08:59 O2 Sat by Pulse Oximetry 97 09/04/23 08:59 Oxygen Delivery Method Room Air 09/04/23 09:00 Height 5 ft 9 in 09/04/23 08:59 Weight 202 lb 11.2 oz 09/04/23 08:59 Telemetry Heart Rate 88 11/25/21 13:00 Appearance: Positive No Apparent Distress and Alert and Oriented x3 Skin: Positive Warm and Good Turgor HEENT: Positive Normocephalic, Atraumatic and PERRLA Neck: Positive Supple and Midline Trachea Chest/Lungs: Positive Symmetrical With Equal Breath Sounds, Clear to Auscultation Bilaterally and Good Air Movement all 4 Lung [place] Heart: Positive RRR, Pulses Normal, No S3 Auscultated and No S4 Auscultated GI/: Positive Soft, Nontender, Bowel Sounds Normal, No Distention and No Organomegaly Musculoskeletal: Positive Not Examined Extremities: Positive Intact Peripheral Pulses, Stable Joints Without Laxity and Other (dressings present to bilateral legs and feet d/t chronic wounds) Neurological: Positive Sensation Intact, Motor intact, Reflexes Intact, Alert, Oriented and Other (generalized weakness) Labs This Visit Labs This Visit: Labs This Visit 09/04/23 09/04/23 09/04/23 05:14 06:35 06:45 WBC 21.45 H RBC 4.54 Hgb 12.3 Hct 39.0 MCV 85.9 MCH 27.1 MCHC 31.5 L RDW Coeff of Afua 14.7 Plt Count 274 Immature Gran % (Auto) 0.4 Neut % (Auto) 74.2 Lymph % (Auto) 19.5 Piute % (Auto) 5.6 Eos % (Auto) 0.0 Baso % (Auto) 0.3 Neut # (Auto) 15.9 H Lymph # (Auto) 4.2 H [place] # (Auto) 1.2 Eos # (Auto) 0.0 Baso # (Auto) 0.1 Immature Gran # (Auto) 0.1 Sodium 134.6 Potassium 4.03 Chloride 106.7 Carbon Dioxide 20.8 L Anion Gap 11.13 BUN 19.9 H Creatinine 0.85 Estimated GFR (MDRD) 65.00 BUN/Creatinine Ratio 23.41 Glucose 195.9 H Lactic Acid 0.98 Calcium 8.59 Total Bilirubin 0.51 AST 33.4 ALT 20.1 Alkaline Phosphatase 146.6 H Total Protein 6.21 L Albumin 3.25 L Globulin 2.96 Albumin/Globulin Ratio 1.09 Lipase 12.7 L Urine Color Yellow Urine Clarity Slightly Urine pH 5.5 Ur Specific Spencer 1.015 Urine Protein 1+ H Urine Glucose (UA) Negative Urine Ketones 1+ H Urine Blood Negative Urine Nitrite Positive H Urine Bilirubin Negative Urine Urobilinogen 0.2 Ur Leukocyte Esterase 1+ H Urine Microscopic WBC 50-100 Ur Squamous Epith Cells Not present Urine Bacteria 3+ SARS CoV-2 RNA Rapid GONZALES Negative Review Statement Review Statement: I have independently reviewed and interpreted the labs/EKGs/imaging that were ordered by the ER provider. I have reviewed all outside records that are available currently in our EMR including imaging/notes/labs from previous visits. Plan Plan: 1. UTI - levaquin Q24H, has recent pseudomonas hx, urine culture pending 2. Leukocytosis - in setting of above, see above plan 3. Constipation - had BM upon admission, mag citrate ordered 4. Diabetes Mellitus, Type 2 - chronic, accuchecks qid with ssi, hold oral medications if applicable, continue home insulin regimen 5. Hypertension - chronic, stable, continue home medications 6. Hyperlipidemia - chronic, stable, continue home medications 7. Wounds to bilateral extremities - managed by Dr. Khan at [facility], continue previous regimen DVT Prophylaxis: Plavix Time Spent: Greater than 80 minutes spent with patient, 50% of the time spent with this patient was devoted to counseling and coordination of care. [facility] minutes spent discussing advance care planning. Disposition: Admit to: Med/Surg Observation DNI, CPR only Discussed Plan of Care with Dr. Stevie Costa. Medications Medication Orders: Medications Ordered Category Date Time Status Acetaminophen [Tylenol] Meds 09/04/23 07:39 Active 650 mg PO Q4H PRN Ceftriaxone/D5w 1 gm Premix [Rocephin 1 gm/50 ml D5w] Meds 09/05/23 09:00 Active 1 gm in 50 ml IV DAILY Sodium Chloride 0.9% [Sodium Chloride] 1,000 ml Meds 09/04/23 08:00 Active IV 125 mls/hr
[2023-09-04] MEDS: SODIUM CHLORIDE 1,000 ML IV SCH ×2 (11:04→19:39)
[2023-09-04] MEDS: TYLENOL PO PRN (11:16)
[2023-09-04] MEDS: HUMULIN R SUBCUT PRN ×2 (11:43→20:40)
[2023-09-04] MEDS ORDERED: PERCOCET 5-325 PO PRN (13:04)
[2023-09-04] MEDS ORDERED: DULCOLAX RC PRN (13:04)
[2023-09-04] MEDS ORDERED: [UNRECOGNIZED DRUG - OTHER] SCH (14:00)
[2023-09-04] MEDS ORDERED: SANTYL TP ONE (14:58)
[2023-09-04] MEDS: [UNRECOGNIZED DRUG - OTHER] TP SCH (16:34)
[2023-09-04] MEDS: LANTUS SUBCUT SCH (16:51)
[2023-09-04] MEDS: LIPITOR PO SCH (20:39)
[2023-09-04] MEDS: PEPCID PO SCH (20:39)
[2023-09-04] MEDS: ELAVIL PO SCH (20:39)
[2023-09-05] MEDS: SODIUM CHLORIDE 1,000 ML IV SCH ×3 (03:39→21:02)
[2023-09-05 05:11] LABS: BASOPHILS # (AUTO) 0.1 K/uL (0-0.2); BASOPHILS % (AUTO) 0.6 % (0.0-3.0); EOSINOPHILS # (AUTO) 0.8 K/ul (0.0-0.7); EOSINOPHILS % (AUTO) 8.6 % (0.0-7.0); HEMOGLOBIN 10.4 g/dl (12.0-16.0); IMMATURE GRANULOCYTE % (AUTO) 0.5 % (0.0-5.0); LYMPHOCYTES # (AUTO) 2.5 K/uL (0.60-3.4); LYMPHOCYTES % (AUTO) 28.2 (10.0-50.0); MEAN CORPUSCULAR HEMOGLOBIN 27.5 pg (27.0-31.0); MEAN CORPUSCULAR HGB CONC 31.5 (31.8-35.4); MEAN CORPUSCULAR VOLUME 87.3 fl (81.0-99.0); MONOCYTES # (AUTO) 0.7 K/uL (0.4-2.0); NEUTROPHILS # (AUTO) 4.8 K/ul (2.0-6.9); NEUTROPHILS % (AUTO) 54.1 % (42.2-75.2); PLATELET COUNT 226 10^3/uL (140-440); RDW COEFFICIENT OF VARIATION 14.9 % (11.6-14.8); RED BLOOD COUNT 3.78 10^6/ul (4.20-5.40); WHITE BLOOD COUNT 8.88 K/ul (4.6-10.2)
[2023-09-05 05:15] LABS: ALANINE AMINOTRANSFERASE 15.8 U/L (0-35); ALBUMIN 2.53 g/dL (3.5-5.0); ALKALINE PHOSPHATASE 110.4 U/L (53-141); ASPARTATE AMINO TRANSFERASE 25.7 U/L (14-36); BILIRUBIN,TOTAL 0.25 mg/dL (0.2-1.3); BLOOD UREA NITROGEN 14.3 mg/dL (7-17); CALCIUM 7.69 mg/dL (8.4-10.2); CARBON DIOXIDE 22.1 mmol/L (22-30.0); CHLORIDE 111.8 mmol/L (98-107); CREATININE 0.75 mg/dL (0.60-1.30); GLUCOSE 93.2 mg/dL (74-106); POTASSIUM 3.75 mmol/L (3.5-5.1); SODIUM 136.7 mmol/L (134.5-145); TOTAL PROTEIN 5.02 g/dL (6.3-8.2)
[2023-09-05] MEDS ORDERED: COLLAGENASE topical SCH (09:00)
[2023-09-05] MEDS ORDERED: ROCEPHIN 1 GM/50 ML D5W 1 GM/50 ML BAG IV SCH (09:00)
[2023-09-05] MEDS ORDERED: [UNRECOGNIZED DRUG - OTHER] topical SCH (09:00)
[2023-09-05] MEDS: ASPIRIN CHEWABLE PO SCH (09:45)
[2023-09-05] MEDS: NORVASC PO SCH (09:46)
[2023-09-05] MEDS: PEPCID PO SCH ×2 (09:48→21:03)
[2023-09-05] MEDS: PLAVIX PO SCH (09:49)
[2023-09-05] MEDS: VITAMIN C PO SCH (09:50)
[2023-09-05] MEDS: VITAMIN D PO SCH (09:50)
[2023-09-05] MEDS: TYLENOL PO PRN ×2 (09:52→14:32)
[2023-09-05] MEDS: [UNRECOGNIZED DRUG - OTHER] TP SCH ×2 (09:53→21:07)
[2023-09-05] MEDS: SANTYL TP SCH (09:54)
--- NOTE | 2023-09-05 09:55 | PCM.PROG ---
Date/Time Seen Date Seen by Provider: 09/05/23 Time Seen by Provider: 08:45 Provider Provider: SHIRA NGUYEN, [facility] Chief Complaint Chief Complaint: UTI Subjective Subjective: No fever or events overnight. Patient states she is feeling better today. Having mild flank pain and lower abdominal pain still at this time. Had multiple BMs yesterday and is feeling better. Objective Appearance: Positive No Apparent Distress and Alert and Oriented x3 Chest/Lungs: Positive Symmetrical With Equal Breath Sounds, Clear to Auscultation Bilaterally and Good Air Movement all 4 Lung [place] Heart: Positive RRR and Pulses Normal GI/: Positive Soft, Nontender, Bowel Sounds Normal and No Distention Musculoskeletal: Positive Not Examined Neurological: Positive Sensation Intact, Motor intact, Alert and Oriented Vital Signs Vital Signs: Vital Signs: Last 24 Hours 09/04/23 09:57 09/04/23 10:00 09/04/23 11:00 Temperature Temperature Source Pulse Rate Pulse Rate [Apical] Respiratory Rate Blood Pressure Blood Pressure Mean Blood Pressure Location Blood Pressure Position O2 Sat by Pulse Oximetry Oxygen Delivery Method Room Air Room Air Telemetry Type Remote Telemetry Telemetry Monitoring Started Telemetry Heart Rate 86 Telemetry SPO2 98 EKG PA Interval 0.20 EKG QRS Interval 0.06 Telemetry Strip Reading NSR 09/04/23 12:00 09/04/23 13:00 09/04/23 13:00 Temperature Temperature Source Pulse Rate Pulse Rate [Apical] Respiratory Rate Blood Pressure Blood Pressure Mean Blood Pressure Location Blood Pressure Position O2 Sat by Pulse Oximetry Oxygen Delivery Method Room Air Room Air Telemetry Type Remote Telemetry Telemetry Monitoring Continues Telemetry Heart Rate 79 Telemetry SPO2 99 EKG PA Interval 0.16 EKG QRS Interval 0.08 Telemetry Strip Reading NSR 09/04/23 14:00 09/04/23 14:00 09/04/23 14:42 Temperature 97.7 F Temperature Source Oral Pulse Rate 80 Pulse Rate [Apical] Respiratory Rate 20 Blood Pressure 145/75 H Blood Pressure Mean 98 Blood Pressure Location Left Arm Blood Pressure Position O2 Sat by Pulse Oximetry 97 Oxygen Delivery Method Room Air Room Air Room Air Telemetry Type Telemetry Monitoring Telemetry Heart Rate Telemetry SPO2 EKG PA Interval EKG QRS Interval Telemetry Strip Reading 09/04/23 15:52 09/04/23 16:41 09/04/23 17:39 Temperature Temperature Source Pulse Rate Pulse Rate [Apical] Respiratory Rate Blood Pressure Blood Pressure Mean Blood Pressure Location Blood Pressure Position O2 Sat by Pulse Oximetry Oxygen Delivery Method Room Air Room Air Room Air Telemetry Type Telemetry Monitoring Telemetry Heart Rate Telemetry SPO2 EKG PA Interval EKG QRS Interval Telemetry Strip Reading 09/04/23 18:00 09/04/23 18:49 09/04/23 18:49 Temperature 98.2 F Temperature Source Oral Pulse Rate 88 Pulse Rate [Apical] Respiratory Rate 18 Blood Pressure 142/70 H Blood Pressure Mean 94 Blood Pressure Location Left Radial Artery Blood Pressure Position O2 Sat by Pulse Oximetry 100 Oxygen Delivery Method Room Air Room Air Telemetry Type Remote Telemetry Telemetry Monitoring Continues Telemetry Heart Rate 79 Telemetry SPO2 97 EKG PA Interval 0.19 EKG QRS Interval 0.04 L Telemetry Strip Reading SR 09/04/23 20:00 09/04/23 20:00 09/04/23 21:00 Temperature Temperature Source Pulse Rate Pulse Rate [Apical] Respiratory Rate Blood Pressure Blood Pressure Mean Blood Pressure Location Blood Pressure Position O2 Sat by Pulse Oximetry Oxygen Delivery Method Room Air Room Air Room Air Telemetry Type Telemetry Monitoring Telemetry Heart Rate Telemetry SPO2 EKG PA Interval EKG QRS Interval Telemetry Strip Reading 09/04/23 21:13 09/04/23 22:00 09/04/23 22:58 Temperature 97.2 F L Temperature Source Temporal Artery Scan Pulse Rate 77 Pulse Rate [Apical] Respiratory Rate 17 Blood Pressure 140/69 Blood Pressure Mean 92 Blood Pressure Location Left Arm Blood Pressure Position Supine O2 Sat by Pulse Oximetry 99 Oxygen Delivery Method Room Air Room Air Room Air Telemetry Type Telemetry Monitoring Telemetry Heart Rate Telemetry SPO2 EKG PA Interval EKG QRS Interval Telemetry Strip Reading 09/05/23 00:00 09/05/23 01:00 09/05/23 01:00 Temperature Temperature Source Pulse Rate Pulse Rate [Apical] Respiratory Rate Blood Pressure Blood Pressure Mean Blood Pressure Location Blood Pressure Position O2 Sat by Pulse Oximetry Oxygen Delivery Method Room Air Room Air Telemetry Type Remote Telemetry Telemetry Monitoring Continues Telemetry Heart Rate 73 Telemetry SPO2 96 EKG PA Interval 0.20 EKG QRS Interval 0.04 L Telemetry Strip Reading SR 09/05/23 02:00 09/05/23 02:00 09/05/23 03:00 Temperature 97.6 F Temperature Source Temporal Artery Scan Pulse Rate 80 Pulse Rate [Apical] Respiratory Rate 17 Blood Pressure 140/70 Blood Pressure Mean 93 Blood Pressure Location Left Arm Blood Pressure Position Supine O2 Sat by Pulse Oximetry 98 Oxygen Delivery Method Room Air Room Air Room Air Telemetry Type Telemetry Monitoring Telemetry Heart Rate Telemetry SPO2 EKG PA Interval EKG QRS Interval Telemetry Strip Reading 09/05/23 04:00 09/05/23 05:00 09/05/23 05:17 Temperature Temperature Source Pulse Rate Pulse Rate [Apical] Respiratory Rate Blood Pressure Blood Pressure Mean Blood Pressure Location Blood Pressure Position O2 Sat by Pulse Oximetry Oxygen Delivery Method Room Air Room Air Room Air Telemetry Type Telemetry Monitoring Telemetry Heart Rate Telemetry SPO2 EKG PA Interval EKG QRS Interval Telemetry Strip Reading 09/05/23 05:22 09/05/23 06:54 09/05/23 07:00 Temperature 97.8 F Temperature Source Temporal Artery Scan Pulse Rate 74 Pulse Rate [Apical] Respiratory Rate 19 Blood Pressure 169/77 H Blood Pressure Mean 107 Blood Pressure Location Left Arm Blood Pressure Position Supine O2 Sat by Pulse Oximetry 100 Oxygen Delivery Method Room Air Room Air Telemetry Type Remote Telemetry Telemetry Monitoring Continues Telemetry Heart Rate 75 Telemetry SPO2 98 EKG PA Interval 0.20 EKG QRS Interval 0.08 Telemetry Strip Reading NSR 09/05/23 08:00 09/05/23 08:00 09/05/23 09:00 Temperature Temperature Source Pulse Rate Pulse Rate [Apical] 64 Respiratory Rate 16 Blood Pressure Blood Pressure Mean Blood Pressure Location Blood Pressure Position O2 Sat by Pulse Oximetry Oxygen Delivery Method Room Air Room Air Room Air Telemetry Type Telemetry Monitoring Telemetry Heart Rate Telemetry SPO2 EKG PA Interval EKG QRS Interval Telemetry Strip Reading 09/05/23 09:00 09/05/23 09:00 Temperature 97.9 F Temperature Source Oral Pulse Rate 77 Pulse Rate [Apical] Respiratory Rate 16 Blood Pressure 159/69 H Blood Pressure Mean 99 Blood Pressure Location Left Arm Blood Pressure Position O2 Sat by Pulse Oximetry 99 Oxygen Delivery Method Room Air Room Air Telemetry Type Telemetry Monitoring Telemetry Heart Rate Telemetry SPO2 EKG PA Interval EKG QRS Interval Telemetry Strip Reading Lab Results Lab Results: Lab Results: Last 24 Hours 09/05/23 04:53 WBC 8.88 D RBC 3.78 L Hgb 10.4 L Hct 33.0 L D MCV 87.3 MCH 27.5 MCHC 31.5 L RDW Coeff of Afua 14.9 H Plt Count 226 Immature Gran % (Auto) 0.5 Neut % (Auto) 54.1 Lymph % (Auto) 28.2 [place] % (Auto) 8.0 Eos % (Auto) 8.6 H Baso % (Auto) 0.6 Neut # (Auto) 4.8 Lymph # (Auto) 2.5 [place] # (Auto) 0.7 Eos # (Auto) 0.8 H Baso # (Auto) 0.1 Immature Gran # (Auto) 0.0 Sodium 136.7 Potassium 3.75 Chloride 111.8 H Carbon Dioxide 22.1 Anion Gap 6.55 BUN 14.3 Creatinine 0.75 Estimated GFR (MDRD) 75.00 BUN/Creatinine Ratio 19.06 Glucose 93.2 D Calcium 7.69 L Total Bilirubin 0.25 AST 25.7 ALT 15.8 Alkaline Phosphatase 110.4 D Total Protein 5.02 L Albumin 2.53 L Globulin 2.49 Albumin/Globulin Ratio 1.01 Additional Comments Additional Comments: I have independently reviewed and interpreted the labs/EKGs/imaging ordered during this hospital stay. I have reviewed outside records that are available in our EMR that pertain to medical stay including imaging/notes/labs from previous visits. Active Medications Active Medications: Medications Generic Name Dose Route Start Last Admin Trade Name Macq PRN Reason Stop Dose Admin Acetaminophen 650 mg 09/04/23 07:39 09/05/23 09:52 Acetaminophen 325 Mg Tablet PO 650 mg Q4H PRN Administration Mild Pain Amitriptyline HCl 25 mg 09/04/23 21:00 09/04/23 20:39 Amitriptyline Hcl 25 Mg Tablet PO 25 mg BEDTIME NATHAN Administration Amlodipine Besylate 2.5 mg 09/05/23 09:00 09/05/23 09:46 Amlodipine Besylate 5 Mg Tablet PO 2.5 mg DAILY NATHAN Administration Ascorbic Acid 500 mg 09/05/23 09:00 09/05/23 09:50 Ascorbic Acid 500 Mg Tablet PO 500 mg DAILY NATHAN Administration Aspirin 81 mg 09/05/23 09:00 09/05/23 09:45 Aspirin 81 Mg Tab.Chew PO 81 mg DAILY NATHAN Administration Atorvastatin Calcium 40 mg 09/04/23 21:00 09/04/23 20:39 Atorvastatin Calcium 20 Mg Tablet PO 40 mg BEDTIME NATHAN Administration Bisacodyl 10 mg 09/04/23 13:04 Bisacodyl 10 Mg Supp.Rect RC DAILY PRN Constipation Cholecalciferol 1,000 unit 09/05/23 09:00 09/05/23 09:50 Cholecalciferol (Vitamin D3) 1,000 Unit (25 Mcg) Tablet PO 1,000 unit DAILY NATHAN Administration Clopidogrel Bisulfate 75 mg 09/05/23 09:00 09/05/23 09:49 Clopidogrel Bisulfate 75 Mg Tablet PO 75 mg DAILY NATHAN Administration Collagenase 1 applic 09/05/23 09:00 Collagenase Clostridium Hist 30 Gm Oint TP DAILY NATHAN Famotidine 20 mg 09/04/23 21:00 09/05/23 09:48 Famotidine 20 Mg Tablet PO 20 mg BID NATHAN Administration Sodium Chloride 1,000 mls @ 125 mls/hr 09/04/23 08:00 09/05/23 03:39 Sodium Chloride IV 125 mls/hr .Q8H NATHAN Administration Levofloxacin/Dextrose 750 mg in 150 mls @ 100 mls/hr 09/05/23 09:00 Levaquin 750 Mg/150 Ml D5w IV 09/08/23 08:59 DAILY [facility] Insulin Glargine 10 unit 09/04/23 17:00 09/04/23 16:51 Insulin Glargine,Hum.Rec.Anlog 100 Units/Ml SUBCUT 10 unit QPM NATHAN Administration Insulin Human Regular 0 unit 09/04/23 10:21 09/04/23 20:40 Insulin Regular, Human 100 Unit/Ml (3ml) Vial SUBCUT 5 unit PRN PRN Administration Hyperglycemia Protocol Non-Formulary Medication 1 applic 09/04/23 16:30 09/04/23 16:34 Nonformulary TP 1 applic BID NATHAN Administration Oxycodone/Acetaminophen 1 tab 09/04/23 13:04 09/04/23 23:23 Oxycodone/Acetaminophen 5/325 Mg Tablet PO 1 tab Q4H PRN Administration Pain Plan Plan: 1. UTI - levaquin Q24H, has recent pseudomonas hx, urine culture prelim gram negative rods, awaiting sensitivity 2. Leukocytosis - Improved, in setting of above, see above plan 3. Constipation - Resolved, had BM upon admission, mag citrate ordered prn 4. Diabetes Mellitus, Type 2 - chronic, accuchecks qid with ssi, hold oral medications if applicable, continue home insulin regimen 5. Hypertension - chronic, stable, continue home medications 6. Hyperlipidemia - chronic, stable, continue home medications 7. Wounds to bilateral extremities - managed by Dr. Khan at [facility], continue previous regimen DVT Prophylaxis: Plavix Review Statement Review Statement: I have personally discussed and reviewed the patient's visit/currently labs/imaging/decision making with Dr. Costa, my supervising attending. Greater that 50 minutes spent with patient, 50% of the time spent with this patient was devoted to counseling and coordination of care.
[2023-09-05] MEDS: LEVAQUIN 750 MG/150 ML D5W 750 MG/150 ML BAG IV SCH (10:36)
[2023-09-05] MEDS: HUMULIN R SUBCUT PRN ×2 (11:38→21:04)
[2023-09-05] MEDS: LANTUS SUBCUT SCH (17:19)
[2023-09-05] MEDS: ELAVIL PO SCH (21:03)
[2023-09-05] MEDS: LIPITOR PO SCH (21:03)
[2023-09-06] MEDS: SODIUM CHLORIDE 1,000 ML IV SCH ×2 (04:43→12:05)
[2023-09-06 05:29] LABS: BASOPHILS % (AUTO) 0.4 % (0.0-3.0); EOSINOPHILS # (AUTO) 0.2 K/ul (0.0-0.7); EOSINOPHILS % (AUTO) 3.9 % (0.0-7.0); HEMATOCRIT 31.6 % (37.0-47.0); HEMOGLOBIN 9.8 g/dl (12.0-16.0); IMMATURE GRANULOCYTE % (AUTO) 0.2 % (0.0-5.0); LYMPHOCYTES # (AUTO) 1.1 K/uL (0.60-3.4); LYMPHOCYTES % (AUTO) 23.7 (10.0-50.0); MEAN CORPUSCULAR HEMOGLOBIN 29.4 pg (27.0-31.0); MEAN CORPUSCULAR VOLUME 94.9 fl (81.0-99.0); MONOCYTES # (AUTO) 0.5 K/uL (0.4-2.0); MONOCYTES % (AUTO) 10.8 (0-10); NEUTROPHILS # (AUTO) 2.9 K/ul (2.0-6.9); PLATELET COUNT 150 10^3/uL (140-440); RDW COEFFICIENT OF VARIATION 15.8 % (11.6-14.8); RED BLOOD COUNT 3.33 10^6/ul (4.20-5.40); WHITE BLOOD COUNT 4.82 K/ul (4.6-10.2)
[2023-09-06 05:41] LABS: ALANINE AMINOTRANSFERASE 16.6 U/L (0-35); ALBUMIN 3.42 g/dL (3.5-5.0); ALKALINE PHOSPHATASE 67.5 U/L (53-141); ASPARTATE AMINO TRANSFERASE 27.3 U/L (14-36); BILIRUBIN,TOTAL 0.38 mg/dL (0.2-1.3); BLOOD UREA NITROGEN 42.9 mg/dL (7-17); CALCIUM 8.59 mg/dL (8.4-10.2); CARBON DIOXIDE 24.5 mmol/L (22-30.0); CHLORIDE 112.3 mmol/L (98-107); CREATININE 1.05 mg/dL (0.60-1.30); GLUCOSE 84.4 mg/dL (74-106); POTASSIUM 4.43 mmol/L (3.5-5.1); SODIUM 139.5 mmol/L (134.5-145); TOTAL PROTEIN 6.19 g/dL (6.3-8.2)
[2023-09-06] MEDS: TYLENOL PO PRN (08:09)
[2023-09-06] MEDS: LEVAQUIN 750 MG/150 ML D5W 750 MG/150 ML BAG IV SCH (08:53)
[2023-09-06] MEDS: PLAVIX PO SCH (08:55)
[2023-09-06] MEDS: VITAMIN C PO SCH (08:55)
[2023-09-06] MEDS: ASPIRIN CHEWABLE PO SCH (08:55)
[2023-09-06] MEDS: NORVASC PO SCH (08:56)
[2023-09-06] MEDS: VITAMIN D PO SCH (08:56)
[2023-09-06] MEDS: PEPCID PO SCH (08:56)
[2023-09-06] MEDS: SANTYL TP SCH (09:01)
[2023-09-06] MEDS: [UNRECOGNIZED DRUG - OTHER] TP SCH (09:02)
--- NOTE | 2023-09-06 09:17 | DCSUM ---
Admission Date Admission Date: 09/04/23 Discharge Date Discharge Date: 09/06/23 Admission Diagnosis Admission Diagnosis: 1. UTI 2. Leukocytosis 3. Constipation 4. Diabetes Mellitus, Type 2 5. Hypertension 6. Hyperlipidemia 7. Wounds to bilateral extremities Discharge Diagnosis Discharge Diagnosis: 1. UTI - Improving 2. Leukocytosis - Resolved 3. Constipation - Resolved 4. Diabetes Mellitus, Type 2 - Chronic, stable 5. Hypertension - Chronic, stable 6. Hyperlipidemia - Chronic, stable 7. 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 Patient reports that she has not had a bowel movement in over a week. She had taken all of her oral prn medications for constipation and was given an enema at the senior living without relief. States pain has persisted and has rectal pressure at this time. She was found to have a UTI in the ER. Does complain of burning on urinary and some frequency/urgency. Denies fever, chills, N/V, SOB, chest pain. Hospital Course Subjective: In ER patient was given dose of Rocephin for UTI. Changed to levaquin on admission due to recent urine culture of pseudomonas. Urine culture growth of klebsiella this visit. Sensitive to levaquin. Flank and abdominal pain resolved with treatment. Leukocytosis resolved with antibiotics. Patient was also constipated on admission. Received enema at SNF prior to arrival and had multiple bowel movements during stay due to this. Wound care regimen was continued as previously prescribed. No concerns for infection. All home medications resumed and no changes were made. Appearance: No Apparent Distress, Alert and Well-appearing HEENT: MMM and Supple CVS: No Murmur and No Rubs Abdomen: Soft, Non-Tender and No Distention Respiratory: No Dyspnea Extremities: No Edema Vital Signs: Most Recent Vital Signs Temperature 97.7 F 09/06/23 05:13 Temperature Source Temporal Artery Scan 09/06/23 05:13 Temperature Source Infrared 09/04/23 05:12 Pulse Rate 77 09/06/23 05:13 Respiratory Rate 18 09/06/23 05:13 Blood Pressure 133/80 09/06/23 05:13 Blood Pressure Mean 97 09/06/23 05:13 Blood Pressure Left Arm 169/88 09/04/23 08:59 Blood Pressure Location Left Arm 09/06/23 05:13 Blood Pressure Position Supine 09/06/23 05:13 O2 Sat by Pulse Oximetry 99 09/06/23 05:13 Oxygen Delivery Method Room Air 09/06/23 08:00 Height 5 ft 9 in 09/04/23 08:59 Weight 202 lb 11.2 oz 09/04/23 08:59 Telemetry Type Remote Telemetry 09/06/23 07:00 Telemetry Monitoring Continues 09/06/23 07:00 Telemetry Heart Rate 78 09/06/23 07:00 Telemetry SPO2 98 09/06/23 07:00 EKG WI Interval 0.19 09/06/23 07:00 EKG QRS Interval 0.07 09/06/23 07:00 Telemetry Strip Reading NSR 09/06/23 07:00 Lab Results Last 24 Hours: 09/06/23 05:20 WBC 4.82 RBC 3.33 L Hgb 9.8 L Hct 31.6 L MCV 94.9 D MCH 29.4 MCHC 31.0 L RDW Coeff of Afua 15.8 H Plt Count 150 D Immature Gran % (Auto) 0.2 Neut % (Auto) 61.0 Lymph % (Auto) 23.7 [place] % (Auto) 10.8 H Eos % (Auto) 3.9 Baso % (Auto) 0.4 Neut # (Auto) 2.9 Lymph # (Auto) 1.1 [place] # (Auto) 0.5 Eos # (Auto) 0.2 Baso # (Auto) 0.0 Immature Gran # (Auto) 0.0 Sodium 139.5 Potassium 4.43 Chloride 112.3 H Carbon Dioxide 24.5 Anion Gap 7.13 BUN 42.9 H D Creatinine 1.05 Estimated GFR (MDRD) 51.00 BUN/Creatinine Ratio 40.85 Glucose 84.4 Calcium 8.59 Total Bilirubin 0.38 AST 27.3 ALT 16.6 Alkaline Phosphatase 67.5 D Total Protein 6.19 L Albumin 3.42 L Globulin 2.77 Albumin/Globulin Ratio 1.23 Discharge Instructions Discharge Planning: Discharge Planning > 40 minutes If patient is discharged with left ventricular systolic dysfunction: NA Discharged with a beta remington? [] If no, why not? [] Discharged with an maya/arb? [] If no, why not? [] Diabetic Diet Activity as tolerated Medications: Levaquin 750 mg daily x 7 days Follow-up with PCP next week Discharge Medications: Medications at Discharge (Home Meds & RX) acetaminophen 325 mg tablet 325 mg PO BID PRN Analgesia 11/10/21 Santyl External Ointment 250 UNIT/GM (Collagenase) See Rx Instructions topical DAILY 09/04/23 Zinc Oral Tab 25 mcg PO DAILY 09/04/23 amitriptyline 25 mg tablet 25 mg PO BEDTIME 09/04/23 amlodipine 2.5 mg tablet 2.5 mg PO DAILY 09/04/23 ascorbic acid (vitamin C) 500 mg tablet 500 mg PO DAILY 09/04/23 aspirin 81 mg chewable tablet 81 mg PO DAILY 09/04/23 atorvastatin 40 mg tablet (Lipitor) 40 mg PO BEDTIME 09/04/23 bisacodyl 10 mg rectal suppository (Dulcolax (bisacodyl)) 10 mg [place] DAILY PRN constipation 09/04/23 carisoprodol 350 mg tablet 350 mg PO QID PRN pain 09/04/23 cholecalciferol (vitamin D3) 25 mcg (1,000 unit) capsule 25 mcg PO DAILY 09/04/23 clopidogrel 75 mg tablet (Plavix) 75 mg PO DAILY 09/04/23 diphenhydramine HCl 25 mg tablet (Allergy (diphenhydramine)) 25 mg PO Q8H PRN itching 09/04/23 famotidine 20 mg tablet (Acid Controller) 20 mg PO BID 09/04/23 insulin glargine 100 unit/mL subcutaneous solution (Lantus U-100 Insulin) 10 unit subcut QPM 09/04/23 insulin lispro 100 unit/mL subcutaneous pen (Humalog KwikPen (U-100) Insulin) 1 sliding scale dose subcut DIRECTED 09/04/23 magnesium hydroxide 400 mg/5 mL oral suspension (Milk of Magnesia) 30 ml PO DAILY PRN constipation 09/04/23 multivitamin with iron-mineral (Super Multiple tablet) 1 tab PO DAILY 09/04/23 naloxone 4 mg/actuation nasal spray 1 spray intranasal Q2-3M PRN opioid overdose 09/04/23 nonformulary 1 applic topical BID Rectal Fissures 09/04/23 nystatin 100,000 unit/gram topical cream 1 applic topical BID 09/04/23 ondansetron 4 mg disintegrating tablet 4 mg PO Q8H PRN nausea and vomiting 09/04/23 oxybutynin chloride 5 mg tablet 5 mg PO Q8H PRN stress incontinence 09/04/23 oxycodone-acetaminophen 5 mg-325 mg tablet 1 tab PO Q4H PRN pain 09/04/23 polyethylene glycol 3350 17 gram/dose oral powder (ClearLax) 17 g PO DAILY PRN constipation 09/04/23 sennosides 8.6 mg-docusate sodium 50 mg tablet 1 tab-cap PO DAILY PRN constipation 09/04/23 levofloxacin 750 mg tablet 750 mg PO DAILY #7 tabs 09/06/23 Discharge Plan Discharge Discharge Orders: Discharge Patient (ONCE); Ordered 09/06/23 Ordered By: KAYLAH VINSON Activity Restrictions/Additional Instructions: Diabetic Diet Activity as tolerated Medications: Levaquin 750 mg daily x 7 days Follow-up with PCP next week Instructions: Urinary Tract Infection in Women (GEN) Patient Disposition: TRANSFER [facility] Prescriptions: New levofloxacin 750 mg tablet 750 mg PO DAILY Qty: 7 0RF Continued acetaminophen 325 mg Tablet 325 mg PO BID PRN (Reason: Analgesia) amitriptyline 25 mg tablet 25 mg PO BEDTIME amlodipine 2.5 mg tablet 2.5 mg PO DAILY ascorbic acid (vitamin C) 500 mg tablet 500 mg PO DAILY aspirin 81 mg tablet,chewable 81 mg PO DAILY diphenhydramine HCl [Allergy (diphenhydramine)] 25 mg tablet 25 mg PO Q8H PRN (Reason: itching) bisacodyl [Dulcolax (bisacodyl)] 10 mg suppository 10 mg [place] DAILY PRN (Reason: constipation) carisoprodol 350 mg tablet 350 mg PO QID PRN (Reason: pain) famotidine [Acid Controller] 20 mg tablet 20 mg PO BID polyethylene glycol 3350 [ClearLax] 17 gram/dose powder 17 g PO DAILY PRN (Reason: constipation) insulin lispro [Humalog KwikPen Insulin] 100 unit/mL insulin pen 1 sliding scale dose subcut DIRECTED Rx Instructions: Inject as per Sliding scale 150 - 199 = 2 units 200 - 299 = 3 units 300 - 349 = 4 units 350 - 400 = 6 units Over 400 call MD SubQ before meals for DM2 insulin glargine [Lantus U-100 Insulin] 100 unit/mL solution 10 unit subcut QPM atorvastatin [Lipitor] 40 mg tablet 40 mg PO BEDTIME magnesium hydroxide [Milk of Magnesia] 400 mg/5 mL suspension 30 ml PO DAILY PRN (Reason: constipation) Rx Instructions: Give 30ml PO every 24 hrs PRN constipation. May admin one time if no bowel movement in 3 days Super Multiple Tablet 1 tab PO DAILY naloxone 4 mg/actuation spray,non-aerosol 1 spray intranasal Q2-3M PRN (Reason: opioid overdose) Rx Instructions: spray 1 dose into ONE nostril; alternate nostrils w each dose until help arrives nystatin 100,000 unit/gram cream 1 applic topical BID Rx Instructions: Apply to groin, perineal area topically every day and car shifter for antibiotic ondansetron 4 mg tablet,disintegrating 4 mg PO Q8H PRN (Reason: nausea and vomiting) oxybutynin chloride 5 mg tablet 5 mg PO Q8H PRN (Reason: stress incontinence) oxycodone-acetaminophen 5-325 mg tablet 1 tab PO Q4H PRN (Reason: pain) clopidogrel [Plavix] 75 mg tablet 75 mg PO DAILY Santyl External Ointment 250 UNIT/GM (Collagenase) ointment See Rx Instructions topical DAILY Rx Instructions: 1 Application topically daily; Apply to bilateral heel wounds topically every car shifter for wound care. Apply nickel thick layer, cover w/ saline moistened gauze, and dry roll gauze dressing. sennosides-docusate sodium 8.6-50 mg tablet 1 tab-cap PO DAILY PRN (Reason: constipation) cholecalciferol (vitamin D3) 25 mcg (1,000 unit) capsule 25 mcg PO DAILY Zinc Oral Tab 25 mcg tablet 25 mcg PO DAILY nonformulary cream 1 applic topical BID Rx Instructions: Nifedipine/Lidocaine 0.2/4% Cream Apply to rectal area. Did you review [place] [employer] for ALL controlled substances?: No Discussed opioids are addictive and Narcan is available by prescription or from pharmacy.: No Condition: Good
[2023-09-06 10:16] VITALS: BP 157/66; PULSE 82; RESP 19; TEMP 97.9
[2023-09-06] MEDS: HUMULIN R SUBCUT PRN (11:56)
== END 2023-09-06 13:40 ==
LOC: MEDSURG B 05:10 → ED 05:10 → MEDSURG B 09:00
PROVIDERS: ADMIT Nurse Practitioner Family; ATTEND Nurse Practitioner Family

== ENCOUNTER 2024-04-22 21:09 | Inpatient (IN) ==
--- NOTE | 2024-04-22 21:55 | ED.PDOC ---
General ED Provider: Dr. KESHAV HANSEN Chief Complaint: Urinary Problem Stated Complaint: Patient is a 78-year-old female who is brought by EMS from home accompanied by the son and the with complaints of feeling poorly and also burning on urination. She states that she has had similar symptoms in the past and has had urinary tract infections and suspects it is the same today. Son states that since 7 PM she has been lethargic and very weak. She is also vomited x 1 today. Time Seen by Provider: 04/22/24 21:14 Mode of Arrival: Ambulance Information Source: Patient, Family and EMT Exam Limitations: No limitations Primary Care Provider: FATOUMATA PEÑALOZA Nursing and Triage Documentation Reviewed and Agree: Yes What is Opioid Naive?: *Opioid Naive implies the patient is not already taking opioids or not chronically receiving opioids on a daily basis. *PRN dosing is not "usually" associated with tolerance. *Patients are at higher risk of over-sedation and aspiration. What is Opioid Tolerant?: *Opioid Tolerance implies less than the expected response to an opioid. *Acquired tolerance is defined by the patient taking 60mg of oral morphine daily (or equianalgesic dose of another opioid) for 1 week or more. *Often associated with chronic pain. *May take more than usual dose to achieve desired pain control. Complaint Exam UTI Female Complaint/Exam Patient Complains of: Reports Painful urination Onset/Duration: 1 day Symptoms Are: Still present Initial Severity: Moderate Current Severity: Severe Location of Pain: Reports Suprapubic Associated Signs and Symptoms: Denies Fever, Chills, Flank pain, Dyspareunia or Vaginal discharge Suprapubic Tenderness: Yes Differential Diagnoses: Cystitis Review of Systems Review Of Systems Constitutional: Reports Malaise, Weakness and Loss of appetite Ears, Nose, Mouth, Throat: Reports No symptoms Respiratory: Reports No symptoms Cardiac: Reports No symptoms GI: Reports Nausea : Reports Burning and Dysuria Skin: Reports No symptoms Neurological: Reports Anxiety All Other Systems: Reviewed and Negative [facility] Medical History 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.4 - FPC (current) use of insulin (ICD-10) Muscle weakness (generalized) M62.81 - Muscle weakness (generalized) (ICD-10) Other specified arthritis, unspecified site M13.80 - Other specified arthritis, unspecified site (ICD-10) Gastro-esophageal reflux disease without esophagitis K21.9 - Gastro-esophageal reflux disease without esophagitis (ICD-10) Essential (primary) hypertension I10 - Essential (primary) hypertension (ICD-10) Hypothyroidism, unspecified E03.9 - Hypothyroidism, unspecified (ICD-10) Other reduced mobility Z74.09 - Other reduced mobility (ICD-10) Cognitive communication deficit R41.841 - Cognitive communication deficit (ICD-10) 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 - 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 (ICD-10) Stricture of artery I77.1 - Stricture of artery (ICD-10) Difficulty in walking, not elsewhere classified R26.2 - Difficulty in walking, not elsewhere classified (ICD-10) Unsteadiness on feet R26.81 - Unsteadiness on feet (ICD-10) Feeding difficulties, unspecified R63.30 - Feeding difficulties, unspecified (ICD-10) Other abnormalities of gait and mobility R26.89 - Other abnormalities of gait and mobility (ICD-10) Chronic kidney disease, unspecified N18.9 - Chronic kidney disease, unspecified (ICD-10) Acute kidney failure, unspecified N17.9 - Acute kidney failure, unspecified (ICD-10) Type 2 diabetes mellitus with diabetic neuropathy, unspecified E11.40 - Type 2 diabetes mellitus with diabetic neuropathy, unspecified (ICD-10) Peripheral vascular disease, unspecified I73.9 - Peripheral vascular disease, unspecified (ICD-10) Cellulitis of left lower limb L03.116 - Cellulitis of left lower limb (ICD-10) Other chronic osteomyelitis, left tibia and fibula M86.662 - Other chronic osteomyelitis, left tibia and fibula (ICD-10) Left ankle injury S99.912A - Unspecified injury of left ankle, initial encounter (ICD-10) Hyperlipidemia E78.5 - Hyperlipidemia, unspecified (ICD-10) Diabetes E11.9 - Type 2 diabetes mellitus without complications (ICD-10) Family History MATERNAL GRANDMOTHER Diabetes Mother Hypertension Social History Smoking and tobacco status: Never smoker Alcohol intake: former Surgical History H/O: hysterectomy Z90.710 - Acquired absence of both cervix and uterus (ICD-10) Female Reproductive History Menstrual Hx Hysterectomy: Yes Physical Exam Physical Exam Appearance: Reports Ill-appearing Respiratory: Reports Airway patent, Breath sounds clear and Breath sounds equal Cardiovascular: Reports RRR, Pulses normal and No rub Musculoskeletal: Reports Normal strength, ROM intact and No edema Physician Notification Case Discussed Physician Notified: Marissa Ryan Time of Notification: 01:00 (discussed need for admission and was accepted for admission to telemetry ) Course Course 04/22/24 22:11 04/22/24 22:11 Orders, Labs, Meds: Lab Review 04/22/24 04/22/24 04/22/24 22:00 22:11 23:14 WBC 25.71 H RBC 4.30 Hgb 12.4 Hct 39.1 MCV 90.9 MCH 28.8 MCHC 31.7 L RDW Coeff of Afua 13.2 Plt Count 254 Immature Gran % (Auto) 1.0 Neut % (Auto) 88.5 H Lymph % (Auto) 4.5 L Rock % (Auto) 5.8 Eos % (Auto) 0.0 Baso % (Auto) 0.2 Neut # (Auto) 22.8 H Lymph # (Auto) 1.2 Rock # (Auto) 1.5 Eos # (Auto) 0.0 Baso # (Auto) 0.1 Immature Gran # (Auto) 0.3 Sodium 137.2 Potassium 4.24 Chloride 104.3 Carbon Dioxide 23.7 Anion Gap 13.44 BUN 23.6 H Creatinine 1.22 Estimated GFR (MDRD) 43.00 BUN/Creatinine Ratio 19.34 Glucose 216.8 H Calcium 9.24 Total Bilirubin 0.59 AST 65.7 H ALT 58.9 H Alkaline Phosphatase 166.8 H Total Protein 6.64 Albumin 3.99 Globulin 2.65 Albumin/Globulin Ratio 1.50 Urine Color Yellow Urine Clarity Clear Urine pH 5.5 Ur Specific [place] 1.020 Urine Protein Trace H Urine Glucose (UA) 1+ H Urine Ketones Negative Urine Blood Trace-intact H Urine Nitrite Negative Urine Bilirubin Negative Urine Urobilinogen 0.2 Ur Leukocyte Esterase Negative Urine Microscopic RBC 2-5 Ur Squamous Epith Cells 0-2 Urine Bacteria Trace SARS CoV-2 RNA Rapid GONZALES Negative Orders Category Date Time Status PLACE PATIENT OBSERVATION .TO MEDSURG (MONITORED BED ADMISSION 04/23/24 00:55 Active ) ACTIVITY .Up With Assistance CARE 04/23/24 00:55 Active BLOOD GLUCOSE MONITORING (MED/SURG) 0630,1100,1700,2100 CARE 04/23/24 00:57 Active GIVE HS SNACK 2100 CARE 04/23/24 00:57 Active INTAKE & OUTPUT Q8HR CARE 04/23/24 00:55 Active IP: INSERT SALINE LOCK ONCE CARE 04/23/24 00:55 Active REMINDER: Give Insulin if Needed 0630,1100,1700,2100 CARE 04/23/24 00:55 Active TELEMETRY MONITORING TELE CARE 04/23/24 00:56 Active VITAL SIGNS Q8HR CARE 04/23/24 00:55 Completed ADA 1800 JOSE. DIET DIETARY 04/23/24 Breakfast Ordered HS SNACK DIETARY 04/23/24 Dinner Ordered Straight [ED CATHETER INSERTION AND CARE] .ONCE EMERGENCY 04/22/24 21:54 Active BASIC METABOLIC PANEL DAILY@0600 LAB 04/23/24 05:11 Received BASIC METABOLIC PANEL DAILY@0600 LAB 04/24/24 06:00 Ordered BLOOD CULTURE (ED ONLY) Stat LAB 04/22/24 22:11 Received CBC W/ AUTO DIFF DAILY@0600 LAB 04/23/24 05:11 Received CBC W/ AUTO DIFF DAILY@0600 LAB 04/24/24 06:00 Ordered CBC W/ AUTO DIFF Stat LAB 04/22/24 22:11 Completed CMP [COMPREHENSIVE METABOLIC PANEL] Stat LAB 04/22/24 22:11 Completed COVID [SARS COV-2 RNA RAPID GONZALES] Stat LAB 04/22/24 22:00 Completed URINALYSIS C & S IF INDICATED Stat LAB 04/22/24 23:14 Completed Acetaminophen Meds 04/23/24 00:17 Discontinued 1,000 mg in 100 ml IV ONCE Acetaminophen [Tylenol] Meds 04/23/24 00:55 Active 650 mg PO Q4H PRN Ceftriaxone 1 gm Vial [Rocephin 1 gm Vial] Meds 04/22/24 22:50 Discontinued 1 gm IVP ONCE ONE Ceftriaxone/D5w 1 gm Premix [Rocephin 1 gm/50 ml D5w] Meds 04/23/24 23:00 Discontinued 1 gm in 50 ml IV Q24H Enoxaparin Sodium [Lovenox] Meds 04/23/24 09:00 Active 40 mg SUBCUT DAILY Ondansetron HCl/Pf [Zofran 4 mg/2 ml] Meds 04/22/24 21:55 Discontinued 4 mg IVP ONCE STA Sodium Chloride 0.9% [Sodium Chloride] 1,000 ml Meds 04/23/24 01:00 Active IV 125 mls/hr Sodium Chloride 0.9% [Sodium Chloride] 1,000 ml Meds 04/22/24 21:54 Discontinued IV BOLUS RESUSCITATION STATUS Routine OTHERS 04/23/24 00:[address] ABDOMEN/PELVIS WO CONTRAST Stat RADS 04/22/24 23:[address] CHEST W/O CONTRAST Stat RADS 04/22/24 23:26 Completed Medications Generic Name Dose Route Start Last Admin Trade Name Freq PRN Reason Stop Dose Admin Acetaminophen 650 mg 04/23/24 00:55 Acetaminophen 325 Mg Tablet PO Q4H PRN Mild Pain Enoxaparin Sodium 40 mg 04/23/24 09:00 Enoxaparin Sodium 40 Mg/0.4 Ml Syr SUBCUT DAILY NATHAN Sodium Chloride 1,000 mls @ 125 mls/hr 04/23/24 01:00 04/23/24 01:51 Sodium Chloride IV 125 mls/hr .Q8H NTAHAN Administration CEFTRIAXONE/D5W 1 GM PREMIX 1 gm in 50 mls @ 75 mls/hr 04/23/24 21:00 Rocephin 1 Gm/50 Ml D5w IV 04/26/24 20:59 Q24H NATHAN Discontinued Medications Generic Name Dose Route Start Last Admin Trade Name Macq PRN Reason Stop Dose Admin Ceftriaxone Sodium 1 gm 04/22/24 22:50 04/22/24 23:52 Ceftriaxone 1 Gm Vial IVP 04/22/24 22:51 1 gm ONCE ONE Administration Sodium Chloride 1,000 mls @ 1,000 mls/hr 04/22/24 21:54 04/23/24 01:52 Sodium Chloride IV 04/22/24 22:53 Infused BOLUS STA Infusion Acetaminophen 1,000 mg in 100 mls @ 400 mls/hr 04/23/24 00:17 04/23/24 00:26 Acetaminophen IV 04/23/24 00:31 400 mls/hr ONCE ONE Administration CEFTRIAXONE/D5W 1 GM PREMIX 1 gm in 50 mls @ 75 mls/hr 04/23/24 23:00 Rocephin 1 Gm/50 Ml D5w IV 04/26/24 22:59 Q24H NATHAN Ondansetron HCl 4 mg 04/22/24 21:55 04/22/24 22:30 Ondansetron Hcl/Pf 4 Mg/2 Ml Sdv IVP 04/22/24 21:56 4 mg ONCE STA Administration Vital Signs: Temp Pulse Resp BP Pulse Ox 04/23/24 00:14 97 20 168/78 H 96 04/22/24 21:17 99.6 F 95 20 100/76 99 Discharge Plan Discharge Patient Disposition: PLACED OBSERVATION Discharge Problem: Leukocytosis (leucocytosis), Weakness Did you review [place] DIAL REFINISHER for ALL controlled substances?: Not Applicable ED Provider: KESHAV HANSEN Condition: Fair
[2024-04-22] MEDS: SODIUM CHLORIDE 1,000 ML IV STA (22:28)
[2024-04-22] MEDS: ZOFRAN 4 MG/2 ML IVP STA (22:30)
[2024-04-22 22:35] LABS: BASOPHILS # (AUTO) 0.1 K/uL (0-0.2); BASOPHILS % (AUTO) 0.2 % (0.0-3.0); HEMATOCRIT 39.1 % (37.0-47.0); HEMOGLOBIN 12.4 g/dl (12.0-16.0); IMMATURE GRANULOCYTE # (AUTO) 0.3 (0.0-1.0); LYMPHOCYTES # (AUTO) 1.2 K/uL (0.60-3.4); LYMPHOCYTES % (AUTO) 4.5 (10.0-50.0); MEAN CORPUSCULAR HEMOGLOBIN 28.8 pg (27.0-31.0); MEAN CORPUSCULAR HGB CONC 31.7 (31.8-35.4); MEAN CORPUSCULAR VOLUME 90.9 fl (81.0-99.0); MONOCYTES # (AUTO) 1.5 K/uL (0.4-2.0); MONOCYTES % (AUTO) 5.8 (0-10); NEUTROPHILS # (AUTO) 22.8 K/ul (2.0-6.9); NEUTROPHILS % (AUTO) 88.5 % (42.2-75.2); PLATELET COUNT 254 10^3/uL (140-440); RDW COEFFICIENT OF VARIATION 13.2 % (11.6-14.8); WHITE BLOOD COUNT 25.71 K/ul (4.6-10.2)
[2024-04-22 22:47] LABS: ALBUMIN 3.99 g/dL (3.5-5.0); ALKALINE PHOSPHATASE 166.8 U/L (53-141); ASPARTATE AMINO TRANSFERASE 65.7 U/L (14-36); BILIRUBIN,TOTAL 0.59 mg/dL (0.2-1.3); BLOOD UREA NITROGEN 23.6 mg/dL (7-17); CALCIUM 9.24 mg/dL (8.4-10.2); CARBON DIOXIDE 23.7 mmol/L (22-30.0); CHLORIDE 104.3 mmol/L (98-107); CREATININE 1.22 mg/dL (0.60-1.30); GLUCOSE 216.8 mg/dL (74-106); POTASSIUM 4.24 mmol/L (3.5-5.1); SODIUM 137.2 mmol/L (134.5-145); TOTAL PROTEIN 6.64 g/dL (6.3-8.2)
[2024-04-22 22:50] LABS: SARS COV-2 RNA RAPID NAAT NEGATIVE (NEGATIVE)
[2024-04-22 22:54] LABS: ALANINE AMINOTRANSFERASE 58.9 U/L (0-35)
[2024-04-22 23:20] LABS: BILIRUBIN,URINE Negative (NEGATIVE); CLARITY,URINE Clear (CLEAR); COLOR,URINE Yellow (YELLOW); GLUCOSE, URINE (UA) 1+ (NEGATIVE); KETONES,URINE Negative (NEGATIVE); LEUKOCYTE ESTERASE ,URINE Negative (NEGATIVE); NITRITE,URINE Negative (NEGATIVE); PH,URINE 5.5 (5-9); PROTEIN,URINE Trace (NEGATIVE); URINE, BLOOD Trace-intact (NEGATIVE); UROBILINOGEN,URINE 0.2 (0.2)
[2024-04-22 23:27] LABS: BACTERIA,URINE TRACE (NOT PRESENT); SQUAMOUS EPITHELIAL CELL,UR 0-2 (0-5)
[2024-04-22] MEDS: ROCEPHIN 1 GM VIAL IVP ONE (23:52)
[2024-04-23] MEDS: ACETAMINOPHEN 1,000 MG/100 ML BAG IV ONE (00:26)
--- NOTE | 2024-04-23 00:29 | CT ---
EXAM: CHEST CT WITHOUT CONTRAST HISTORY: Shortness of breath. TECHNIQUE: CT acquisition of the chest from the thoracic inlet to the upper abdomen without IV contra st administration. COMPARISON: Chest radiograph 07/14/2023. FINDINGS: Lines, Tubes, Devices: None. Lung Parenchyma, Pleura, and Airways: Central airways are patent. Mild scarring or atelectasis in the lower lobes. A few scattered calcified granulomas. No acute airspace consolidation or suspicious ma ss. No pleural effusion. Thoracic Inlet, Mediastinum, and Lizy: Thyroid gland is normal. Calcified granulomas in mediastinal l ymph nodes. Heart, Vessels, and Pericardium: Extensive atherosclerotic calcifications of the aorta heavy coronary calcifications. 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 Aorti c valve calcifications. No cardiomegaly. No pericardial effusion. Bones and Soft Tissues: No acute osseous abnormality. Multilevel degenerative spondylosis and mild sc oliosis. Severe degenerative change of the shoulders. Unchanged chronic compression deformity of ve rtebral body with mild height loss. Upper Abdomen: Status post cholecystectomy. Calcified granulomas in the spleen. Bilateral renal cor tical thinning and atrophy. Moderate hiatal hernia. IMPRESSION: No acute finding in the chest. ASCVD. Moderate hiatal hernia. All CT scans are performed using dose optimization techniques as appropriate to the performed exam an d include at least one of the following: Automated exposure control, adjustment of the mA and/or kV according t o size, and the use of iterative reconstruction technique.
--- NOTE | 2024-04-23 00:31 | CT ---
EXAM: CT OF THE ABDOMEN AND PELVIS WITHOUT CONTRAST History: Lower abdomen pain Technique: 2.[address] of the abdomen and pelvis without contrast FINDINGS: The lung bases are clear. No significant liver abnormality. The adrenals, pancreas and s pleen are unremarkable. Small hiatus hernia. Prior cholecystectomy. Kidneys and proximal collectin g system are unremarkable. The appendix is normal. Bowel loops demonstrate normal caliber. No infl amatory change seen in the mesentery or retroperitoneum. Atherosclerotic calcification of the aorta without aneurysm. Prior hysterectomy. Normal pelvic genitourinary structures otherwise. Pelvic bowel loops are unrema rkable. No inflammatory change in the pelvic fat. No acute abnormality of the abdominal or pelvic s [place]. Impression: 1. No inflammatory process, bowel or urinary obstruction 2. Small hiatus hernia without complication All CT scans are performed using dose optimization techniques as appropriate to the performed exam an d include at least one of the following: Automated exposure control, adjustment of the mA and/or kV according t o size, and the use of iterative reconstruction technique.
[2024-04-23] MEDS ORDERED: TYLENOL PO PRN (00:55)
[2024-04-23] MEDS: SODIUM CHLORIDE 1,000 ML IV SCH (01:51)
[2024-04-23 02:05] VITALS: BMI 33.3
[2024-04-23 05:37] LABS: BASOPHILS # (AUTO) 0.1 K/uL (0-0.2); BASOPHILS % (AUTO) 0.3 % (0.0-3.0); HEMATOCRIT 34.8 % (37.0-47.0); HEMOGLOBIN 10.9 g/dl (12.0-16.0); IMMATURE GRANULOCYTE # (AUTO) 0.5 (0.0-1.0); IMMATURE GRANULOCYTE % (AUTO) 1.4 % (0.0-5.0); MEAN CORPUSCULAR HEMOGLOBIN 28.9 pg (27.0-31.0); MEAN CORPUSCULAR HGB CONC 31.3 (31.8-35.4); MEAN CORPUSCULAR VOLUME 92.3 fl (81.0-99.0); MONOCYTES # (AUTO) 1.5 K/uL (0.4-2.0); MONOCYTES % (AUTO) 4.5 (0-10); NEUTROPHILS # (AUTO) 29.6 K/ul (2.0-6.9); NEUTROPHILS % (AUTO) 87.8 % (42.2-75.2); PLATELET COUNT 233 10^3/uL (140-440); RDW COEFFICIENT OF VARIATION 13.4 % (11.6-14.8); RED BLOOD COUNT 3.77 10^6/ul (4.20-5.40); WHITE BLOOD COUNT 33.76 K/ul (4.6-10.2)
[2024-04-23 05:51] LABS: BLOOD UREA NITROGEN 23.7 mg/dL (7-17); CALCIUM 8.18 mg/dL (8.4-10.2); CARBON DIOXIDE 24.8 mmol/L (22-30.0); CREATININE 1.21 mg/dL (0.60-1.30); GLUCOSE 166.3 mg/dL (74-106); POTASSIUM 4.65 mmol/L (3.5-5.1); SODIUM 136.4 mmol/L (134.5-145)
[2024-04-23] MEDS: LOVENOX SUBCUT SCH (08:06)
[2024-04-23] MEDS: PERCOCET 5-325 PO PRN (08:06)
[2024-04-23] MEDS ORDERED: DITROPAN PO PRN (08:19)
[2024-04-23 08:45] LABS: ALBUMIN 3.09 g/dL (3.5-5.0); ASPARTATE AMINO TRANSFERASE 55.6 U/L (14-36); BILIRUBIN,TOTAL 0.51 mg/dL (0.2-1.3); TOTAL PROTEIN 5.82 g/dL (6.3-8.2)
[2024-04-23] MEDS: PLAVIX PO SCH (08:50)
[2024-04-23] MEDS: PEPCID PO SCH (08:50)
[2024-04-23] MEDS: SYNTHROID PO SCH (08:50)
[2024-04-23] MEDS: NORVASC PO SCH (08:50)
[2024-04-23] MEDS: ASPIRIN CHEWABLE PO SCH (08:50)
[2024-04-23] MEDS: VANCOMYCIN 1.5 GRAM/300 ML PREMIX 1.5 GM/300 ML BAG IV SCH (10:30)
[2024-04-23] MEDS: HUMALOG (3 ML) SUBCUT PRN (11:24)
[2024-04-23] MEDS: NYSTOP POWDER TP SCH (11:24)
--- NOTE | 2024-04-23 11:44 | CT ---
EXAM: CT CHEST WITH CONTRAST HISTORY: Bacteremia COMPARISON: CT chest 04/22/2024 TECHNIQUE: Serial axial images of the chest were obtained after 100 ml of Omnipaque IV contrast was administered. These were obtained from the lung apices to the upper abdomen. FINDINGS: The thyroid is normal. Visualized vessels demonstrate mild atherosclerotic disease with a retropharyngeal right subclavian artery. There is no dissection, aneurysm or stenosis. The heart i s normal in size without pericardial effusion. There is no mediastinal, hilar or axillary pathologic ally enlarged lymph nodes. Small hiatal hernia is present. There is no pneumothorax or pleural effusion. There is minimal dependent bilateral atelectasis. The re is no consolidation, nodule or mass. The airways are patent. Limited views of the soft tissues in the upper abdomen are better evaluated on same day CT abdomen p renae. The osseous structures demonstrate degenerative disease of the shoulders and spine. IMPRESSION: 1. No acute cardiopulmonary process with minimal dependent atelectasis. 2. Atherosclerotic disease with aberrant right subclavian. 3. Small to moderate hiatal hernia. All CT scans are performed using dose optimization techniques as appropriate to the performed exam an d include at least one of the following: Automated exposure control, adjustment of the mA and/or kV according t o size, and the use of iterative reconstruction technique.
--- NOTE | 2024-04-23 11:53 | CT ---
EXAM: CT ABDOMEN PELVIS WITH INTRAVENOUS CONTRAST 04/23/2024. SAGITTAL AND CORONAL REFORMATTED [place] HISTORY: Bacteremia COMPARISON: 04/22/2024 FINDINGS: Moderate sized hiatal hernia. The liver shows no acute abnormality. The gallbladder has b een removed. The adrenal glands and kidneys show no acute abnormality. There is no hydronephrosis. The spleen and pancreas show no acute abnormality. There is no bowel obstruction. Normal appendix. Unremarkable urinary bladder. No free air. No free fluid. No acute osseous abnormality. Stable depression at the superior endplate of T11 and T12. IMPRESSION: 1. Moderate sized hiatal hernia 2. Status post cholecystectomy. 3. No urinary or bowel obstruction and normal appendix. 4. No acute inflammatory process identified within the abdomen or pelvis. All CT scans are performed using dose optimization techniques as appropriate to the performed exam an d include at least one of the following: Automated exposure control, adjustment of the mA and/or kV according t o size, and the use of iterative reconstruction technique.
--- NOTE | 2024-04-23 11:54 | CT ---
EXAM: CT LUMBAR SPINE WITHOUT CONTRAST. HISTORY: Point tenderness of the lumbar spine. Bacteremia. COMPARISON: 05/06/2022. Abdominal CT 1 day prior. TECHNIQUE: Multiple axial images of the lumbar spine were obtained without intravenous contrast. Im ages were reformatted in the sagittal and coronal planes. FINDINGS: There is a 0.2 cm retrolisthesis L1 on L2. Left convex curvature of the thoracolumbar xin ction noted. Stable mild T12 superior endplate compression deformity. There is no acute fracture of the lumbar spine. There is severe loss of disc height along the right side of L1-2 and moderate los s of disc height along the left side of L4-5. No osseous destruction identified. No paraspinal flui d collections or soft tissue gas identified. T12-L1: Disc osteophyte formation and facet arthropathy with moderate right neural foraminal narrowi ng. L1-2: Disc osteophyte formation and facet arthropathy with severe right and moderate left neural for aminal narrowing. L2-3: Broad-based disc bulge, facet arthropathy thickening of ligamentum flavum with mild central ca nal stenosis and mild to moderate right and moderate to severe left neural foraminal narrowing. L3-4: Disc osteophyte formation, facet arthropathy thickening along the common flavum with mild mode rate central canal stenosis and severe right and mild to moderate left neural foraminal narrowing. L4-5: Disc osteophyte formation, facet arthropathy thickening of ligamentum flavum with mild central canal stenosis and severe left and moderate to severe right neural foraminal narrowing. L5-S1: Disc osteophyte formation and facet arthropathy with mild to moderate right and moderate left neural foraminal narrowing. Atherosclerotic calcifications present. IMPRESSION: 1. No acute abnormality of the lumbar spine. No CT evidence for osteomyelitis/diskitis. 2. Severe degenerative changes as described All CT scans are performed using dose optimization techniques as appropriate to the performed exam an d include at least one of the following: Automated exposure control, adjustment of the mA and/or kV according t o size, and the use of iterative reconstruction technique.
--- NOTE | 2024-04-23 12:03 | PCM ---
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 She also had one episode of vomiting. She and were concerned for a UTI as she has struggled with them in the past. However UA negative. CT c/a/p negative for acute findings. However wbc 25. Patient was admitted for further work up. Blood cultures obtained and she was given rocephin. Today patient's wbc count has worsened to 33. Blood culture positive for gram positive cocci. Procal 22. 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 She does complain of new low back pain, states it is very tender. Denies rashes. No ports. Has hx of left knee replacement. Large scar from past gangrene infection of left lateral leg well healed, no erythema or drainage. No open wounds. Repeat CT of c/a/p but with contrast done today and negative. CT lumbar spine w/ contrast also negative. Case Discussed With Case Discussed With: Patient's case was discussed with the ER Physicians, Dr. Mclean. [facility] Medical History MCFP (current) use of insulin Z79.4 - MCFP (current) use of insulin (ICD-10) Muscle weakness (generalized) M62.81 - Muscle weakness (generalized) (ICD-10) Other specified arthritis, unspecified site M13.80 - Other specified arthritis, unspecified site (ICD-10) Gastro-esophageal reflux disease without esophagitis K21.9 - Gastro-esophageal reflux disease without esophagitis (ICD-10) Essential (primary) hypertension I10 - Essential (primary) hypertension (ICD-10) Hypothyroidism, unspecified E03.9 - Hypothyroidism, unspecified (ICD-10) Other reduced mobility Z74.09 - Other reduced mobility (ICD-10) Cognitive communication deficit R41.841 - Cognitive communication deficit (ICD-10) 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 - 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 (ICD-10) Stricture of artery I77.1 - Stricture of artery (ICD-10) Difficulty in walking, not elsewhere classified R26.2 - Difficulty in walking, not elsewhere classified (ICD-10) Unsteadiness on feet R26.81 - Unsteadiness on feet (ICD-10) Feeding difficulties, unspecified R63.30 - Feeding difficulties, unspecified (ICD-10) Other abnormalities of gait and mobility R26.89 - Other abnormalities of gait and mobility (ICD-10) Chronic kidney disease, unspecified N18.9 - Chronic kidney disease, unspecified (ICD-10) Acute kidney failure, unspecified N17.9 - Acute kidney failure, unspecified (ICD-10) Type 2 diabetes mellitus with diabetic neuropathy, unspecified E11.40 - Type 2 diabetes mellitus with diabetic neuropathy, unspecified (ICD-10) Peripheral vascular disease, unspecified I73.9 - Peripheral vascular disease, unspecified (ICD-10) Cellulitis of left lower limb L03.116 - Cellulitis of left lower limb (ICD-10) Other chronic osteomyelitis, left tibia and fibula M86.662 - Other chronic osteomyelitis, left tibia and fibula (ICD-10) Left ankle injury S99.912A - Unspecified injury of left ankle, initial encounter (ICD-10) Hyperlipidemia E78.5 - Hyperlipidemia, unspecified (ICD-10) Diabetes E11.9 - Type 2 diabetes mellitus without complications (ICD-10) Surgical History H/O: hysterectomy Z90.710 - Acquired absence of both cervix and uterus (ICD-10) Family History MATERNAL GRANDMOTHER Diabetes Mother Hypertension Social History Smoking and tobacco status: Never smoker Alcohol intake: former Allergies Allergies Allergy/AdvReac Type Severity Reaction Status Date / Time No Known Allergies Allergy Verified 04/22/24 21:29 Current Medications Home Medications acetaminophen 325 mg tablet 500 mg PO BID PRN Analgesia 11/10/21 [History Confirmed 04/22/24 Last Taken 09/03/23 08:00 325 mg] Santyl External Ointment 250 UNIT/GM (Collagenase) See Rx Instructions topical DAILY 09/04/23 [History Confirmed 04/22/24 Last Taken Unknown] amitriptyline 25 mg tablet 25 mg PO BEDTIME 09/04/23 [History Confirmed 04/22/24 Last Taken Unknown] amlodipine 2.5 mg tablet 5 mg PO DAILY 09/04/23 [History Confirmed 04/22/24 Last Taken Unknown] aspirin 81 mg chewable tablet 81 mg PO DAILY 09/04/23 [History Confirmed 04/22/24 Last Taken Unknown] atorvastatin 40 mg tablet (Lipitor) 40 mg PO BEDTIME 09/04/23 [History Confirmed 04/22/24 Last Taken Unknown] bisacodyl 10 mg rectal suppository (Dulcolax (bisacodyl)) 10 mg HI DAILY PRN constipation 09/04/23 [History Confirmed 04/22/24 Last Taken Unknown] cholecalciferol (vitamin D3) 25 mcg (1,000 unit) capsule 25 mcg PO DAILY 09/04/23 [History Confirmed 04/22/24 Last Taken Unknown] clopidogrel 75 mg tablet (Plavix) 75 mg PO DAILY 09/04/23 [History Confirmed 04/22/24 Last Taken Unknown] famotidine 20 mg tablet (Acid Controller) 40 mg PO BID 09/04/23 [History Confirmed 04/22/24 Last Taken Unknown] insulin glargine 100 unit/mL subcutaneous solution (Lantus U-100 Insulin) 20 unit subcut QPM 09/04/23 [History Confirmed 04/22/24 Last Taken Unknown] insulin lispro 100 unit/mL subcutaneous pen (Humalog KwikPen (U-100) Insulin) 1 sliding scale dose subcut DIRECTED 09/04/23 [History Confirmed 04/22/24 Last Taken Unknown] nystatin 100,000 unit/gram topical cream 1 applic topical BID 09/04/23 [History Confirmed 04/22/24 Last Taken Unknown] oxybutynin chloride 5 mg tablet 5 mg PO Q8H PRN stress incontinence 09/04/23 [History Confirmed 04/22/24 Last Taken Unknown] oxycodone-acetaminophen 5 mg-325 mg tablet 1 tab PO Q4H PRN pain 09/04/23 [History Confirmed 04/22/24 Last Taken Unknown] levothyroxine 50 mcg capsule 50 mcg PO DAILY 04/22/24 [History Confirmed 04/22/24 Last Taken Unknown] Home Acetaminophen (Acetaminophen 325 Mg Tablet) 650 mg PO Q4H PRN PRN Reason: Mild Pain Amitriptyline HCl (Amitriptyline Hcl 25 Mg Tablet) 25 mg PO BEDTIME [facility] Amlodipine Besylate (Amlodipine Besylate 5 Mg Tablet) 5 mg PO DAILY [facility] Last Admin: 04/23/24 08:50 Dose: 5 mg Aspirin (Aspirin 81 Mg Tab.Chew) 81 mg PO DAILY [facility] Last Admin: 04/23/24 08:50 Dose: 81 mg Atorvastatin Calcium (Atorvastatin Calcium 20 Mg Tablet) 40 mg PO BEDTIME [facility] Bisacodyl (Bisacodyl 10 Mg Supp.Rect) 10 mg RC DAILY PRN PRN Reason: Constipation Clopidogrel Bisulfate (Clopidogrel Bisulfate 75 Mg Tablet) 75 mg PO DAILY [facility] Last Admin: 04/23/24 08:50 Dose: 75 mg Enoxaparin Sodium (Enoxaparin Sodium 40 Mg/0.4 Ml Syr) 40 mg SUBCUT DAILY [facility] Last Admin: 04/23/24 08:06 Dose: 40 mg Famotidine (Famotidine 20 Mg Tablet) 40 mg PO BIDAC2 [facility] Last Admin: 04/23/24 08:50 Dose: 40 mg VANCOMYCIN/WATER FOR INJ (PEG) (Vancomycin 1.5 Gram/300 Ml Premix) 1.5 gm in 300 mls @ 200 mls/hr IV DAILY [facility] Stop: 04/26/24 09:29 Last Admin: 04/23/24 10:30 Dose: 200 mls/hr Insulin Glargine (Insulin Glargine,Hum.Rec.Anlog 100 Units/Ml) 20 unit SUBCUT QPM [facility] Insulin Human Lispro (Insulin Lispro 100 Unit/Ml Vial (3 Ml)) 0 unit SUBCUT PRN PRN; Protocol PRN Reason: Hyperglycemia Last Admin: 04/23/24 11:24 Dose: 4 unit Levothyroxine Sodium (Levothyroxine Sodium 50 Mcg Tablet) 50 mcg PO QDAC2 [facility] Last Admin: 06/25/24 08:50 Dose: 50 mcg Nystatin (Nystatin 15 Gm Powder) 1 applic TP BID NATHAN Last Admin: 04/23/24 11:24 Dose: 1 applic Oxybutynin Chloride (Oxybutynin Chloride 5 Mg Tablet) 5 mg PO Q8H PRN PRN Reason: incontinence Oxycodone/Acetaminophen (Oxycodone/Acetaminophen 5/325 Mg Tablet) 1 tab PO Q4H PRN PRN Reason: Pain Last Admin: 04/23/24 08:06 Dose: 1 tab Sodium Chloride (0.9% Sodium Chloride 10 Ml Disp.Syrin) 1 syr IVF Q8HR NATHAN Discontinued Medications Ceftriaxone Sodium (Ceftriaxone 1 Gm Vial) 1 gm IVP ONCE ONE Stop: 04/22/24 22:51 Last Admin: 04/22/24 23:52 Dose: 1 gm Sodium Chloride (Sodium Chloride) 1,000 mls @ 1,000 mls/hr IV BOLUS STA Stop: 04/22/24 22:53 Last Infusion: 04/23/24 01:52 Dose: Infused Acetaminophen (Acetaminophen) 1,000 mg in 100 mls @ 400 mls/hr IV ONCE ONE Stop: 04/23/24 00:31 Last Admin: 04/23/24 00:26 Dose: 400 mls/hr Sodium Chloride (Sodium Chloride) 1,000 mls @ 125 mls/hr IV .Q8H NATHAN Last Infusion: 04/23/24 12:20 Dose: Infused CEFTRIAXONE/D5W 1 GM PREMIX (Rocephin 1 Gm/50 Ml D5w) 1 gm in 50 mls @ 75 mls/hr IV Q24H NATHAN Stop: 04/26/24 22:59 CEFTRIAXONE/D5W 1 GM PREMIX (Rocephin 1 Gm/50 Ml D5w) 1 gm in 50 mls @ 75 mls/hr IV BEDTIME NATHAN Stop: 04/26/24 20:59 Ondansetron HCl (Ondansetron Hcl/Pf 4 Mg/2 Ml Sdv) 4 mg IVP ONCE STA Stop: 04/22/24 21:56 Last Admin: 04/22/24 22:30 Dose: 4 mg Opioid Naive vs. Tolerant Does Patient Take Opioids?: Yes Is Patient Opioid Naive?: No What is Opioid Naive?: *Opioid Naive implies the patient is not already taking opioids or not chronically receiving opioids on a daily basis. *PRN dosing is not "usually" associated with tolerance. *Patients are at higher risk of over-sedation and aspiration. Is Patient Opioid Tolerant?: No What is Opioid Tolerant?: *Opioid Tolerance implies less than the expected response to an opioid. *Acquired tolerance is defined by the patient taking 60mg of oral morphine daily (or equianalgesic dose of another opioid) for 1 week or more. *Often associated with chronic pain. *May take more than usual dose to achieve desired pain control. Review of Systems Constitutional: Reports Fatigue and Weakness; Denies Fever Head: Reports Normocephalic and Atraumatic Cardiovascular: Denies Chest pain or Edema Respiratory: Denies Cough or Shortness of air Gastrointestinal: Reports Vomiting (x1, resolved ); Denies Nausea, Diarrhea, Abdominal pain or Melena Genitourinary: Reports Dysuria Musculoskeletal: Reports Back Pain (+low back) Dermatologic: Denies Rashes Neurological: Reports Weakness Psychiatric: Denies Depression or Anxiety Physical examination Most Recent Vital Signs: Most Recent Vital Signs Temperature 99.2 F 04/23/24 10:00 Temperature Source Temporal Artery Scan 04/23/24 10:00 Temperature Source Oral 04/22/24 21:17 Pulse Rate 68 04/23/24 10:00 Respiratory Rate 20 04/23/24 10:00 Blood Pressure 124/71 04/23/24 10:00 Blood Pressure Mean 88 04/23/24 10:00 Blood Pressure Left Arm 112/40 04/23/24 01:32 Blood Pressure Location Right Arm 04/23/24 10:00 Blood Pressure Position Supine 04/23/24 10:00 O2 Sat by Pulse Oximetry 96 04/23/24 10:00 Oxygen Delivery Method Room Air 04/23/24 11:00 Height 5 ft 9 in 04/23/24 08:28 Weight 225 lb 6 oz 04/23/24 08:28 Telemetry Type Remote Telemetry 04/23/24 07:00 Telemetry Monitoring Continues 04/23/24 07:00 Telemetry Heart Rate 72 04/23/24 07:00 Telemetry SPO2 98 09/06/23 07:00 EKG HI Interval 0.20 04/23/24 07:00 EKG QRS Interval 0.08 04/23/24 07:00 Telemetry Strip Reading SR 04/23/24 07:00 Appearance: Positive No Apparent Distress, Alert and Oriented x3 and Other (+chronically ill appearing ) Skin: Positive [place], Warm, Good Turgor and Good Color; Negative Rashes HEENT: Positive Normocephalic and Atraumatic Neck: Positive Supple and Midline Trachea Chest/Lungs: Positive Clear to Auscultation Bilaterally; Negative Rales, Rhonci or Wheezes Heart: Positive RRR; Negative Murmur GI/: Positive Soft, Nontender, Bowel Sounds Normal and No Distention Extremities: Negative Edema Neurological: Positive Cranial Nerves Intact, Alert, Oriented and Other (+generalized weakness ) Psychiatric: Positive Oriented x4, Appropriate Mood and Appropriate Affect Labs This Visit Labs This Visit: Labs This Visit 04/22/24 04/22/24 04/22/24 22:00 22:11 23:14 WBC 25.71 H RBC 4.30 Hgb 12.4 Hct 39.1 MCV 90.9 MCH 28.8 MCHC 31.7 L RDW Coeff of Afua 13.2 Plt Count 254 Immature Gran % (Auto) 1.0 Neut % (Auto) 88.5 H Lymph % (Auto) 4.5 L [place] % (Auto) 5.8 Eos % (Auto) 0.0 Baso % (Auto) 0.2 Neut # (Auto) 22.8 H Lymph # (Auto) 1.2 [place] # (Auto) 1.5 Eos # (Auto) 0.0 Baso # (Auto) 0.1 Immature Gran # (Auto) 0.3 Sodium 137.2 Potassium 4.24 Chloride 104.3 Carbon Dioxide 23.7 Anion Gap 13.44 BUN 23.6 H Creatinine 1.22 Estimated GFR (MDRD) 43.00 BUN/Creatinine Ratio 19.34 Glucose 216.8 H Calcium 9.24 Total Bilirubin 0.59 Direct Bilirubin AST 65.7 H ALT 58.9 H Alkaline Phosphatase 166.8 H Total Protein 6.64 Albumin 3.99 Globulin 2.65 Albumin/Globulin Ratio 1.50 Procalcitonin Urine Color Yellow Urine Clarity Clear Urine pH 5.5 Ur Specific [place] 1.020 Urine Protein Trace H Urine Glucose (UA) 1+ H Urine Ketones Negative Urine Blood Trace-intact H Urine Nitrite Negative Urine Bilirubin Negative Urine Urobilinogen 0.2 Ur Leukocyte Esterase Negative Urine Microscopic RBC 2-5 Ur Squamous Epith Cells 0-2 Urine Bacteria Trace SARS CoV-2 RNA Rapid GONZALES Negative 04/23/24 05:11 WBC 33.76 H D RBC 3.77 L Hgb 10.9 L Hct 34.8 L MCV 92.3 MCH 28.9 MCHC 31.3 L RDW Coeff of [place] 13.4 Plt Count 233 Immature Gran % (Auto) 1.4 Neut % (Auto) 87.8 H Lymph % (Auto) 6.0 L [place] % (Auto) 4.5 Eos % (Auto) 0.0 Baso % (Auto) 0.3 Neut # (Auto) 29.6 H Lymph # (Auto) 2.0 [place] # (Auto) 1.5 Eos # (Auto) 0.0 Baso # (Auto) 0.1 Immature Gran # (Auto) 0.5 Sodium 136.4 Potassium 4.65 Chloride 105.0 Carbon Dioxide 24.8 Anion Gap 11.25 BUN 23.7 H Creatinine 1.21 Estimated GFR (MDRD) 43.00 BUN/Creatinine Ratio 19.58 Glucose 166.3 H D Calcium 8.18 L Total Bilirubin 0.51 Direct Bilirubin 0.00 AST 55.6 H ALT 44.0 H Alkaline Phosphatase 140.0 D Total Protein 5.82 L Albumin 3.09 L Globulin Albumin/Globulin Ratio Procalcitonin 21.95 H Urine Color Urine Clarity Urine pH Ur Specific [place] Urine Protein Urine Glucose (UA) Urine Ketones Urine Blood Urine Nitrite Urine Bilirubin Urine Urobilinogen Ur Leukocyte Esterase Urine Microscopic RBC Ur Squamous Epith Cells Urine Bacteria SARS CoV-2 RNA Rapid GONZALES Microbiology This Visit 04/22/24 22:11 Blood Blood Culture - Final Imaging Imaging: EXAM: CHEST CT WITHOUT CONTRAST HISTORY: Shortness of breath. TECHNIQUE: CT acquisition of the chest from the thoracic inlet to the upper abdomen without IV contrast administration. COMPARISON: Chest radiograph 07/14/2023. FINDINGS: Lines, Tubes, Devices: None. Lung Parenchyma, Pleura, and Airways: Central airways are patent. Mild scarring or atelectasis in the lower lobes. A few scattered calcified granulomas. No acute airspace consolidation or suspicious mass. No pleural effusion. Thoracic Inlet, Mediastinum, and Lizy: Thyroid gland is normal. Calcified granulomas in mediastinal lymph nodes. Heart, Vessels, and Pericardium: Extensive atherosclerotic calcifications of the aorta heavy coronary calcifications. 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 Aortic valve calcifications. No cardiomegaly. No pericardial effusion. Bones and Soft Tissues: No acute osseous abnormality. Multilevel degenerative spondylosis and mild scoliosis. Severe degenerative change of the shoulders. Unchanged chronic compression deformity of vertebral body with mild height loss. Upper Abdomen: Status post cholecystectomy. Calcified granulomas in the spleen. Bilateral renal cortical thinning and atrophy. Moderate hiatal hernia. IMPRESSION: No acute finding in the chest. ASCVD. Moderate hiatal hernia. EXAM: CT OF THE ABDOMEN AND PELVIS WITHOUT CONTRAST History: Lower abdomen pain Technique: 2.[address] of the abdomen and pelvis without contrast FINDINGS: The lung bases are clear. No significant liver abnormality. The adrenals, pancreas and spleen are unremarkable. Small hiatus hernia. Prior cholecystectomy. Kidneys and proximal collecting system are unremarkable. The appendix is normal. Bowel loops demonstrate normal caliber. No inflamatory change seen in the mesentery or retroperitoneum. Atherosclerotic calcification of the aorta without aneurysm. Prior hysterectomy. Normal pelvic genitourinary structures otherwise. Pelvic bowel loops are unremarkable. No inflammatory change in the pelvic fat. No acute abnormality of the abdominal or pelvic skeleton. Impression: 1. No inflammatory process, bowel or urinary obstruction 2. Small hiatus hernia without complication EXAM: CT CHEST WITH CONTRAST HISTORY: Bacteremia COMPARISON: CT chest 04/22/2024 TECHNIQUE: Serial axial images of the chest were obtained after 100 ml of Omnipaque IV contrast was administered. These were obtained from the lung apices to the upper abdomen. FINDINGS: The thyroid is normal. Visualized vessels demonstrate mild atherosclerotic disease with a retropharyngeal right subclavian artery. There is no dissection, aneurysm or stenosis. The heart is normal in size without pericardial effusion. There is no mediastinal, hilar or axillary pathologically enlarged lymph nodes. Small hiatal hernia is present. There is no pneumothorax or pleural effusion. There is minimal dependent bilateral atelectasis. There is no consolidation, nodule or mass. The airways are patent. Limited views of the soft tissues in the upper abdomen are better evaluated on same day CT abdomen pelvis. The osseous structures demonstrate degenerative disease of the shoulders and spine. IMPRESSION: 1. No acute cardiopulmonary process with minimal dependent atelectasis. 2. Atherosclerotic disease with aberrant right subclavian. 3. Small to moderate hiatal hernia. EXAM: CT ABDOMEN PELVIS WITH INTRAVENOUS CONTRAST 04/23/2024. SAGITTAL AND CORONAL REFORMATTED OBTAINED HISTORY: Bacteremia COMPARISON: 04/22/2024 FINDINGS: Moderate sized hiatal hernia. The liver shows no acute abnormality. The gallbladder has been removed. The adrenal glands and kidneys show no acute abnormality. There is no hydronephrosis. The spleen and pancreas show no acute abnormality. There is no bowel obstruction. Normal appendix. Unremarkable urinary bladder. No free air. No free fluid. No acute osseous abnormality. Stable depression at the superior endplate of T11 and T12. IMPRESSION: 1. Moderate sized hiatal hernia 2. Status post cholecystectomy. 3. No urinary or bowel obstruction and normal appendix. 4. No acute inflammatory process identified within the abdomen or pelvis. EXAM: CT LUMBAR SPINE WITHOUT CONTRAST. HISTORY: Point tenderness of the lumbar spine. Bacteremia. COMPARISON: 05/06/2022. Abdominal CT 1 day prior. TECHNIQUE: Multiple axial images of the lumbar spine were obtained without intravenous contrast. Images were reformatted in the sagittal and coronal planes. FINDINGS: There is a 0.2 cm retrolisthesis L1 on L2. Left convex curvature of the thoracolumbar junction noted. Stable mild T12 superior endplate compression deformity. There is no acute fracture of the lumbar spine. There is severe loss of disc height along the right side of L1-2 and moderate loss of disc height along the left side of L4-5. No osseous destruction identified. No paraspinal fluid collections or soft tissue gas identified. T12-L1: Disc osteophyte formation and facet arthropathy with moderate right neural foraminal narrowing. L1-2: Disc osteophyte formation and facet arthropathy with severe right and moderate left neural foraminal narrowing. L2-3: Broad-based disc bulge, facet arthropathy thickening of ligamentum flavum with mild central canal stenosis and mild to moderate right and moderate to severe left neural foraminal narrowing. L3-4: Disc osteophyte formation, facet arthropathy thickening along the common flavum with mild moderate central canal stenosis and severe right and mild to moderate left neural foraminal narrowing. L4-5: Disc osteophyte formation, facet arthropathy thickening of ligamentum flavum with mild central canal stenosis and severe left and moderate to severe right neural foraminal narrowing. L5-S1: Disc osteophyte formation and facet arthropathy with mild to moderate right and moderate left neural foraminal narrowing. Atherosclerotic calcifications present. IMPRESSION: 1. No acute abnormality of the lumbar spine. No CT evidence for osteomyelitis/diskitis. 2. Severe degenerative changes as described Review Statement Review Statement: I have independently reviewed and interpreted the labs/EKGs/imaging that were ordered by the ER provider. I have reviewed all outside records that are available currently in our EMR including imaging/notes/labs from previous visits. Plan Plan: 1. Bacteremia in setting of gram positive cocci, unknown source - CT c/a/p negative for acute findings. CT lumbar spine negative. UA neg. No ports or lines. Does have left knee hardware. Will get echo today to r/o vegetation. Repeat blood cultures in AM. Stop rocephin. Vanc started today, pharmacy to dose. Trend procal, 22 today. 2. Dysuria - Cont abx, UA negative 3. Acute transaminitis - Improved today. Pt does not have gallbladder 4. Hypothyroidism - Cont home meds 5. DMT2 - Cont insulin, diabetic diet, accuchecks achs. 6. Hypertension - Cont home meds 7. Hyperlipidemia - Cont home meds DVT Prophylaxis: Lovenox Time Spent: Greater than 80 minutes spent with patient, 50% of the time spent with this patient was devoted to counseling and coordination of care. [facility] minutes spent discussing advance care planning. Admit to: Made inpatient Discussed Plan of Care with Dr. Chapo Costa. Medications Medication Orders: Medications Ordered Category Date Time Status Acetaminophen [Tylenol] Meds 04/23/24 00:55 Active 650 mg PO Q4H PRN Amitriptyline HCl [Elavil] Meds 04/23/24 21:00 Active 25 mg PO BEDTIME Amlodipine Besylate [Norvasc] Meds 04/23/24 09:00 Active 5 mg PO DAILY Aspirin [Aspirin Chewable] Meds 04/23/24 09:00 Active 81 mg PO DAILY Atorvastatin Calcium [Lipitor] Meds 04/23/24 21:00 Active 40 mg PO BEDTIME Bisacodyl [Dulcolax] Meds 04/23/24 08:19 Active 10 mg RC DAILY PRN Clopidogrel Bisulfate [Plavix] Meds 04/23/24 09:00 Active 75 mg PO DAILY Enoxaparin Sodium [Lovenox] Meds 04/23/24 09:00 Active 40 mg SUBCUT DAILY Famotidine [Pepcid] Meds 04/23/24 09:00 Active 40 mg PO BIDAC2 Insulin Glargine,Hum.rec.anlog [Lantus] Meds 04/23/24 17:00 Active 20 unit SUBCUT QPM Insulin Lispro [Humalog (3 ml)] Meds 04/23/24 08:20 Active See Protocol SUBCUT PRN PRN Levothyroxine Sodium [Synthroid] Meds 04/23/24 09:00 Active 50 mcg PO QDAC2 Nystatin [Nystop Powder] Meds 04/23/24 10:30 Active 1 applic TP BID Oxybutynin Chloride [Ditropan] Meds 04/23/24 08:19 Active 5 mg PO Q8H PRN Oxycodone-Acetaminophen [Percocet 5-325] Meds 04/23/24 07:48 Active 1 tab PO Q4H PRN Sodium Chloride 0.9% [Sodium Chloride] 1,000 ml Meds 04/23/24 01:00 Active IV 125 mls/hr Vancomycin/Water For Inj (Peg) [Vancomycin 1.5 Gram/300 Meds 04/23/24 09:30 Active ml Premix] 1.5 gm in 300 ml IV DAILY
--- NOTE | 2024-04-23 13:30 | RS.CSNOTE ---
PT Case Note Date of Note: 04/23/24 Note: Spoke with Marissa LEE and she stated to hold PT until tests completed. Number of visits approved by Insurance: n/a Expiration date of current Insurance Approval:: n/a
[2024-04-23] MEDS: LANTUS SUBCUT SCH (17:08)
[2024-04-23] MEDS: ELAVIL PO SCH (20:19)
[2024-04-23] MEDS: LIPITOR PO SCH (20:19)
[2024-04-23] MEDS ORDERED: ROCEPHIN 1 GM/50 ML D5W 1 GM/50 ML BAG IV SCH ×2 (21:00→23:00)
[2024-04-24 07:23] LABS: BASOPHILS # (AUTO) 0.1 K/uL (0-0.2); BASOPHILS % (AUTO) 0.3 % (0.0-3.0); EOSINOPHILS # (AUTO) 0.1 K/ul (0.0-0.7); EOSINOPHILS % (AUTO) 0.9 % (0.0-7.0); HEMATOCRIT 28.9 % (37.0-47.0); HEMOGLOBIN 9.2 g/dl (12.0-16.0); IMMATURE GRANULOCYTE # (AUTO) 0.1 (0.0-1.0); IMMATURE GRANULOCYTE % (AUTO) 0.5 % (0.0-5.0); LYMPHOCYTES # (AUTO) 2.6 K/uL (0.60-3.4); LYMPHOCYTES % (AUTO) 17.4 (10.0-50.0); MEAN CORPUSCULAR HGB CONC 31.8 (31.8-35.4); MEAN CORPUSCULAR VOLUME 91.2 fl (81.0-99.0); MONOCYTES % (AUTO) 6.6 (0-10); NEUTROPHILS # (AUTO) 11.2 K/ul (2.0-6.9); NEUTROPHILS % (AUTO) 74.3 % (42.2-75.2); PLATELET COUNT 192 10^3/uL (140-440); RDW COEFFICIENT OF VARIATION 13.5 % (11.6-14.8); RED BLOOD COUNT 3.17 10^6/ul (4.20-5.40); WHITE BLOOD COUNT 15.09 K/ul (4.6-10.2)
[2024-04-24 07:41] LABS: ALANINE AMINOTRANSFERASE 36.5 U/L (0-35); ALBUMIN 2.63 g/dL (3.5-5.0); ALKALINE PHOSPHATASE 119.6 U/L (53-141); ASPARTATE AMINO TRANSFERASE 35.2 U/L (14-36); BILIRUBIN,TOTAL 0.37 mg/dL (0.2-1.3); BLOOD UREA NITROGEN 25.8 mg/dL (7-17); CALCIUM 8.16 mg/dL (8.4-10.2); CARBON DIOXIDE 24.7 mmol/L (22-30.0); CHLORIDE 109.8 mmol/L (98-107); CREATININE 1.15 mg/dL (0.60-1.30); GLUCOSE 134.2 mg/dL (74-106); POTASSIUM 4.3 mmol/L (3.5-5.1); SODIUM 136.9 mmol/L (134.5-145); TOTAL PROTEIN 5.11 g/dL (6.3-8.2)
[2024-04-24] MEDS: ASPIRIN CHEWABLE PO SCH (08:59)
--- NOTE | 2024-04-24 10:40 | PCM.PROG ---
Date/Time Seen Date Seen by Provider: 04/24/24 Time Seen by Provider: 08:30 Provider Provider[facility] Chief Complaint Chief Complaint: LEUKOCYTOSIS,WEAKNESS,DYSURIA Subjective Subjective: Patient is feeling much better today, much more interactive and talkative. Watching her tablet. Discussed lab and imaging findings. Awaiting echo. Objective Appearance: Positive No Apparent Distress, Alert and Oriented x3 and Other (+chronically ill ) Chest/Lungs: Positive Clear to Auscultation Bilaterally; Negative Rales, Rhonci or Wheezes Heart: Positive RRR GI/: Positive Soft, Nontender, Bowel Sounds Normal and No Distention Neurological: Positive Cranial Nerves Intact, Alert, Oriented and Other (+generalized weakness ) Additional Findings: + s/p left knee replacement. No erythema, swelling, or pain of left joint. Skin: Mild erythema behind left knee, has a yeasty odor, no pain with palpation. Vital Signs Vital Signs: Vital Signs: Last 24 Hours 04/23/24 11:00 04/23/24 13:00 04/23/24 14:00 Temperature 99 F Temperature Source Temporal Artery Scan Pulse Rate 90 Respiratory Rate 17 Blood Pressure 120/67 Blood Pressure Mean 84 Blood Pressure Location Right Arm Blood Pressure Position Supine O2 Sat by Pulse Oximetry 97 Oxygen Delivery Method Room Air Room Air Telemetry Type Remote Telemetry Telemetry Monitoring Continues Telemetry Heart Rate 67 EKG CA Interval 0.24 H EKG QRS Interval 0.08 Telemetry Strip Reading SR with 1st degree AVB 04/23/24 18:00 04/23/24 19:00 04/23/24 19:45 Temperature 98.2 F Temperature Source Temporal Artery Scan Pulse Rate 74 Respiratory Rate 16 Blood Pressure 148/69 H Blood Pressure Mean 95 Blood Pressure Location Right Arm Blood Pressure Position Supine O2 Sat by Pulse Oximetry 100 Oxygen Delivery Method Room Air Room Air Telemetry Type Remote Telemetry Telemetry Monitoring Continues Telemetry Heart Rate 71 EKG CA Interval 0.23 H EKG QRS Interval 0.06 Telemetry Strip Reading SR WITH 1ST DEGREE AVB 04/23/24 20:39 04/24/24 00:58 04/24/24 05:08 Temperature 98.6 F 98.4 F Temperature Source Temporal Artery Scan Temporal Artery Scan Pulse Rate 72 64 Respiratory Rate 18 18 Blood Pressure 146/66 H 145/52 H Blood Pressure Mean 92 83 Blood Pressure Location Right Radial Artery Left Radial Artery Blood Pressure Position Supine Supine O2 Sat by Pulse Oximetry 98 98 Oxygen Delivery Method Room Air Room Air Telemetry Type Remote Telemetry Telemetry Monitoring Continues Telemetry Heart Rate 66 EKG CA Interval 0.22 H EKG QRS Interval 0.06 Telemetry Strip Reading SR WITH 1ST DEGREE AVB 04/24/24 07:00 04/24/24 08:00 Temperature Temperature Source Pulse Rate Respiratory Rate Blood Pressure Blood Pressure Mean Blood Pressure Location Blood Pressure Position O2 Sat by Pulse Oximetry Oxygen Delivery Method Room Air Telemetry Type Remote Telemetry Telemetry Monitoring Continues Telemetry Heart Rate 59 L EKG CA Interval 0.22 H EKG QRS Interval 0.06 Telemetry Strip Reading S.Andre w/1st Degree AVB Lab Results Lab Results: Lab Results: Last 24 Hours 04/24/24 04/24/24 07:00 06:00 WBC 15.09 H D RBC 3.17 L Hgb 9.2 L Hct 28.9 L MCV 91.2 MCH 29.0 MCHC 31.8 RDW Coeff of Afua 13.5 Plt Count 192 Immature Gran % (Auto) 0.5 Neut % (Auto) 74.3 Lymph % (Auto) 17.4 [place] % (Auto) 6.6 Eos % (Auto) 0.9 Baso % (Auto) 0.3 Neut # (Auto) 11.2 H Lymph # (Auto) 2.6 [place] # (Auto) 1.0 Eos # (Auto) 0.1 Baso # (Auto) 0.1 Immature Gran # (Auto) 0.1 Sodium 136.9 Potassium 4.30 Chloride 109.8 H Carbon Dioxide 24.7 Anion Gap 6.70 BUN 25.8 H Creatinine 1.15 Estimated GFR (MDRD) 46.00 BUN/Creatinine Ratio 22.43 Glucose 134.2 H Calcium 8.16 L Total Bilirubin 0.37 AST 35.2 ALT 36.5 H Alkaline Phosphatase 119.6 Total Protein 5.11 L Albumin 2.63 L Globulin 2.48 Albumin/Globulin Ratio 1.06 Procalcitonin 24.73 H Additional Comments Additional Comments: I have independently reviewed and interpreted the labs/EKGs/imaging ordered during this hospital stay. I have reviewed outside records that are available in our EMR that pertain to medical stay including imaging/notes/labs from previous visits. Active Medications Active Medications: Medications Generic Name Dose Route Start Last Admin Trade Name Freq PRN Reason Stop Dose Admin Acetaminophen 650 mg 04/23/24 00:55 Acetaminophen 325 Mg Tablet PO Q4H PRN Mild Pain Amitriptyline HCl 25 mg 04/23/24 21:00 04/23/24 20:19 Amitriptyline Hcl 25 Mg Tablet PO 25 mg BEDTIME NATHAN Administration Amlodipine Besylate 5 mg 04/23/24 09:00 04/24/24 08:57 Amlodipine Besylate 5 Mg Tablet PO 5 mg DAILY NATHAN Administration Aspirin 81 mg 04/24/24 08:00 04/24/24 08:59 Aspirin 81 Mg Tab.Chew PO 81 mg DAILYWM2 NATHAN Administration Atorvastatin Calcium 40 mg 04/23/24 21:00 04/23/24 20:19 Atorvastatin Calcium 20 Mg Tablet PO 40 mg BEDTIME NATHAN Administration Bisacodyl 10 mg 04/23/24 08:19 Bisacodyl 10 Mg Supp.Rect RC DAILY PRN Constipation Clopidogrel Bisulfate 75 mg 04/23/24 09:00 04/24/24 08:57 Clopidogrel Bisulfate 75 Mg Tablet PO 75 mg DAILY NATHAN Administration Enoxaparin Sodium 40 mg 04/23/24 09:00 04/24/24 08:57 Enoxaparin Sodium 40 Mg/0.4 Ml Syr SUBCUT 40 mg DAILY NATHAN Administration Famotidine 40 mg 04/23/24 09:00 04/24/24 05:04 Famotidine 20 Mg Tablet PO 40 mg BIDAC2 NATHAN Administration VANCOMYCIN/WATER FOR INJ (PEG) 1.5 gm in 300 mls @ 200 mls/hr 04/23/24 09:30 04/24/24 08:56 Vancomycin 1.5 Gram/300 Ml Premix IV 04/26/24 09:29 200 mls/hr DAILY NATHAN Administration Insulin Glargine 20 unit 04/23/24 17:00 04/23/24 17:08 Insulin Glargine,Hum.Rec.Anlog 100 Units/Ml SUBCUT 20 unit QPM NATHAN Administration Insulin Human Lispro 0 unit 04/23/24 08:20 04/23/24 20:20 Insulin Lispro 100 Unit/Ml Vial (3 Ml) SUBCUT 2 unit PRN PRN Administration Hyperglycemia Protocol Levothyroxine Sodium 50 mcg 04/23/24 09:00 04/24/24 05:04 Levothyroxine Sodium 50 Mcg Tablet PO 50 mcg QDAC2 NATHAN Administration Nystatin 1 applic 04/23/24 10:30 04/24/24 08:56 Nystatin 15 Gm Powder TP 1 applic BID NATHAN Administration Oxybutynin Chloride 5 mg 04/23/24 08:19 Oxybutynin Chloride 5 Mg Tablet PO Q8H PRN incontinence Oxycodone/Acetaminophen 1 tab 04/23/24 07:48 04/24/24 05:32 Oxycodone/Acetaminophen 5/325 Mg Tablet PO 1 tab Q4H PRN Administration Pain Sodium Chloride 1 syr 04/23/24 21:00 04/24/24 05:05 0.9% Sodium Chloride 10 Ml Disp.Syrin IVF 1 syr Q8HR NATHAN Administration Plan Plan: 1. Bacteremia in setting of gram positive cocci, unknown source - CT c/a/p negative for acute findings. CT lumbar spine negative. UA neg. No ports or lines. Does have left knee hardware. Will get echo today to r/o vegetation. Repeat blood cultures drawn this morning, 04/24. Continue vanc, pharmacy to dose. Trend procal and wbc. 2. Dysuria - Cont abx, UA negative 3. Acute transaminitis - Improved today. Pt does not have gallbladder 4. Hypothyroidism - Cont home meds 5. DMT2 - Cont insulin, diabetic diet, accuchecks achs. 6. Hypertension - Cont home meds 7. Hyperlipidemia - Cont home meds DVT Prophylaxis: Lovenox Review Statement Review Statement: I have personally discussed and reviewed the patient's visit/currently labs/imaging/decision making with Dr. Costa, my supervising attending. Greater that 50 minutes spent with patient, 50% of the time spent with this patient was devoted to counseling and coordination of care.
--- NOTE | 2024-04-24 11:48 | RS.PTINEVL ---
Subjective Patient information Date of Evaluation: 04/24/24 Date of Arrival on Unit: 04/23/24 Admitted From:: Home Diagnosis: leukocytosis, weakness Usual Living Arrangement: With Spouse Living Arrangement Comments: Lives with spouse and son lives across the road. Home Environment: House and Ramp Medical History: Hypertension, Diabetes and Arthritis Medical History Comments:: h/o osteomyelitis, GERD, hypothyroidism, CKD, PVD LATEX ALLERGY?: No Surgical History: Hysterectomy Medications: see chart Subjective Information/ Patient Comments:: pt states that she has had limited activity at home due to decline related to wounds/illness in which she was off her feet for 2 years. pt reports that she has improved to be able to take a few steps from bed to BSC to recliner with her with her. She states she does not try to transfer on her own. Level of function Prior to this admission, the patient could do the following:: Partially Dependent Ambulation Abilities prior to this admission: Had assist with transfers and ADL's Current Level of Function: Partially Dependent Current Equipment Used at Home: BSC, RWX, W/C, POWER CHAIR, GLUCOMETER Pain Assessement Location B shoulders: Description: Sharp and Aching Pain Behavior: Facial Grimacing Pain Aggravating Factors: Changing Position and Exercise/Activity Interventions Objective Patient Orientation: Person, Place, Time and Situation Current Interventions: IV's and Telemetry Observation: pt with non pitting edema BLE Range of Motion ROM Right Upper Extremity AROM: Moderate limitation (shld flex, abd limited ) Left Upper Extremity AROM: Moderate limitation (shld flex, abd limited ) Right Lower Extremity AROM: WFL's Left Lower Extremity AROM: WFL's Muscle Strength Muscle Strength Right Upper Extremity: Moderate Weakness (shld flex 3-/5, elbow flex/ext 4-/5) Left Upper Extremity: Moderate Weakness (shld flex 3-/5, elbow flex/ext 4-/5) Right Lower Extremity: Mild Weakness (hip flex 4-/5, knee flex/ext 4/5, ankle DF/PF 4/5) Left Lower Extremity: Mild Weakness (hip flex 4-/5, knee flex/ext 4/5, ankle DF/PF 4/5) Sensation Sensation Right Upper Extremity: Intact/Normal Left Upper Extremity: Intact/Normal Right Lower Extremity: Impaired Left Lower Extremity: Impaired Comments: n/t B feet due to neuropathy Palpation Palpation Findings: Tenderness (B shoulders ) Balance Sitting Balance and Reactions Static Sitting Balance: Good Dynamic Sitting Balance: Good (good-) Standing Balance and Reactions Static Standing Balance: Poor Dynamic Standing Balance: Poor Functional Mobility Bed Mobility Rolling R/L: CGA Supine to Sit: CGA Transfers Sit to Stand: Min Assist, 1 person assist and 2 person assist Stand to Sit: Min Assist and 1 person assist Safety Awareness Safety Awareness: Fair FRAN INDEX SCORE: n/a Ambulation Ambulation Assistive Device Used: Rolling Walker Orthotic/Prosthetic Device: No Distance: pt stand pivot to BSC then took 4-5 steps to recliner Assistance needed with Ambulation: Min Assist, 1 person assist and 2 person assist Quality of Ambulation: pt amb with slight flexed posture, decreased step length, Gait Deviations: Narrow Based gait, Step-to gait, Forward posture and Short stride Factors Affecting Ambulation: Decreased Balance, Pain, Weakness, Decreased ROM, Decreased Safety, Limited Endurance and Limited Sensation Treatment time Units charged ADL: 1 (ther act ) Time with patient Length of Evaluation: 19 Total treatment time: 31 Patient Education Education Patient Education: Activity Modification and Education of Plan of Care Teaching Recipient: Patient and Family Teaching Methods: Discussion Comments: discussion regarding POC as well as home safety. Assessment Assessment Problem List:: Decreased level of function, Requires training/education, Decreased safety/Risk of falls, Weakness and Pain limits previous level of function Rehab Potential: Fair Further Therapy Indicated?: Yes Candidate for Swing Bed for Therapy Services?: Feel pt may not be a candidate for swing bed due to low prior level of function. Evaluation Complexity: HISTORY: Medium, EXAM OF BODY SYSTEMS: Medium, CLINICAL PRESENTATION: Medium and CLINICAL DECISION MAKING: Medium Patient's Goal(s): Be able to transfer at home with just assist of my with rwx. Short Term Goals GOAL #1: pt demonstrate rolling and scooting in bed with CGA x 1 Goal to be met by: 04/27/24 GOAL #2: Transfer sup to/from sit CGA x 1 Goal to be met by: 04/27/24 GOAL #3: Transfer sit to/from stand CGA x 1 Goal to be met by: 04/27/24 GOAL #4: Stand pivot bed to/from chair min to CGAx1 Goal to be met by: 04/27/24 GOAL #5: pt amb 10ft with rwx with min x 1 Goal to be met by: 04/27/24 [employer]ceiving [employer] Goals GOAL #1: pt transfer sup to/from sit w bedrails independently. Goal to be met by: 04/30/24 GOAL #2: Transfer sit to/from stand SBA Goal to be met by: 04/30/24 GOAL #3: pt amb 20 ft with rwx with CGA x 1 Goal to be met by: 04/30/24 Plan Plan of Care: Therapeutic EX and Therapeutic Activity Other:: gait training Frequency of Treatment: 1-2 X day, as tolerated Duration of Treatment: 5 days Anticipated Discharge Destination: Home (with home health ) Treatment Diagnosis (ICD 10 Codes): impaired balance R 26.81 gait difficulty R 26.2 weakness M62.81 risk of falls Z91.81 Has the Physician been added for Co-signature?: Yes
[2024-04-24] MEDS: DULCOLAX RC PRN (20:07)
[2024-04-25 06:10] LABS: ALANINE AMINOTRANSFERASE 38.6 U/L (0-35); ALBUMIN 2.94 g/dL (3.5-5.0); ALKALINE PHOSPHATASE 119.7 U/L (53-141); ASPARTATE AMINO TRANSFERASE 44.8 U/L (14-36); BILIRUBIN,TOTAL 0.39 mg/dL (0.2-1.3); BLOOD UREA NITROGEN 22.7 mg/dL (7-17); CALCIUM 8.47 mg/dL (8.4-10.2); CARBON DIOXIDE 22.4 mmol/L (22-30.0); CHLORIDE 110.5 mmol/L (98-107); CREATININE 1.01 mg/dL (0.60-1.30); GLUCOSE 123.7 mg/dL (74-106); POTASSIUM 4.03 mmol/L (3.5-5.1); SODIUM 138.6 mmol/L (134.5-145); TOTAL PROTEIN 5.42 g/dL (6.3-8.2)
[2024-04-25 08:25] LABS: BASOPHILS # (AUTO) 0.1 K/uL (0-0.2); BASOPHILS % (AUTO) 0.6 % (0.0-3.0); EOSINOPHILS # (AUTO) 0.1 K/ul (0.0-0.7); EOSINOPHILS % (AUTO) 1.3 % (0.0-7.0); HEMATOCRIT 31.6 % (37.0-47.0); HEMOGLOBIN 9.8 g/dl (12.0-16.0); IMMATURE GRANULOCYTE # (AUTO) 0.1 (0.0-1.0); IMMATURE GRANULOCYTE % (AUTO) 0.9 % (0.0-5.0); LYMPHOCYTES # (AUTO) 2.5 K/uL (0.60-3.4); LYMPHOCYTES % (AUTO) 24.3 (10.0-50.0); MEAN CORPUSCULAR HEMOGLOBIN 28.5 pg (27.0-31.0); MEAN CORPUSCULAR VOLUME 91.9 fl (81.0-99.0); MONOCYTES # (AUTO) 0.8 K/uL (0.4-2.0); MONOCYTES % (AUTO) 7.6 (0-10); NEUTROPHILS # (AUTO) 6.8 K/ul (2.0-6.9); NEUTROPHILS % (AUTO) 65.3 % (42.2-75.2); PLATELET COUNT 234 10^3/uL (140-440); RDW COEFFICIENT OF VARIATION 13.4 % (11.6-14.8); RED BLOOD COUNT 3.44 10^6/ul (4.20-5.40); WHITE BLOOD COUNT 10.46 K/ul (4.6-10.2)
[2024-04-25] MEDS: DULCOLAX PO ONE (09:24)
--- NOTE | 2024-04-25 11:52 | PCM.PROG ---
Date/Time Seen Date Seen by Provider: 04/25/24 Time Seen by Provider: 08:30 Provider Provider: RADHA JOHNSTON [facility]-C, [facility] Chief Complaint Chief Complaint: LEUKOCYTOSIS,WEAKNESS,DYSURIA Subjective Subjective: Patient is feeling well today, still hasn't had a BM. Echo yesterday was good, no vegetation. Initial blood culture back with strep. Repeat cultures negative so far. Objective Appearance: Positive No Apparent Distress, Alert and Oriented x3 and Other (+chronically ill ) Chest/Lungs: Positive Clear to Auscultation Bilaterally; Negative Rales, Rhonci or Wheezes Heart: Positive RRR GI/: Positive Soft, Nontender, Bowel Sounds Normal and No Distention Neurological: Positive Cranial Nerves Intact, Alert, Oriented and Other (+generalized weakness ) Additional Findings: + s/p left knee replacement. No erythema, swelling, or pain of left joint. Skin: Mild erythema behind left knee, has a yeasty odor, no pain with palpation. Vital Signs Vital Signs: Vital Signs: Last 24 Hours 04/24/24 13:00 04/24/24 14:00 04/24/24 17:59 Temperature 98.3 F 98.2 F Temperature Source Temporal Artery Scan Temporal Artery Scan Pulse Rate 75 71 Respiratory Rate 16 18 Blood Pressure 173/75 H 145/73 H Blood Pressure Mean 107 97 Blood Pressure Location Right Arm Right Arm Blood Pressure Position O2 Sat by Pulse Oximetry 98 100 Oxygen Delivery Method Room Air Room Air Telemetry Type Remote Telemetry Telemetry Monitoring Continues Telemetry Heart Rate 70 EKG MT Interval 0.22 H EKG QRS Interval 0.06 Telemetry Strip Reading SRw/1st Degree AVB 04/24/24 19:00 04/24/24 20:00 04/24/24 21:21 Temperature 98.8 F Temperature Source Temporal Artery Scan Pulse Rate 68 Respiratory Rate 16 Blood Pressure 135/93 H Blood Pressure Mean 107 Blood Pressure Location Left Arm Blood Pressure Position Supine O2 Sat by Pulse Oximetry 96 Oxygen Delivery Method Room Air Room Air Telemetry Type Remote Telemetry Telemetry Monitoring Continues Telemetry Heart Rate 71 EKG MT Interval 0.22 H EKG QRS Interval 0.06 Telemetry Strip Reading SR /1ST DEGREE AVB 04/25/24 01:00 04/25/24 02:00 04/25/24 05:48 Temperature 98.6 F 98.5 F Temperature Source Temporal Artery Scan Tympanic Pulse Rate 62 66 Respiratory Rate 16 18 Blood Pressure 130/93 H 117/85 Blood Pressure Mean 105 95 Blood Pressure Location Right Arm Left Arm Blood Pressure Position Supine Supine O2 Sat by Pulse Oximetry 96 97 Oxygen Delivery Method Room Air Room Air Telemetry Type Remote Telemetry Telemetry Monitoring Continues Telemetry Heart Rate 62 EKG MT Interval 0.20 EKG QRS Interval 0.06 Telemetry Strip Reading Sinus Rhythm 04/25/24 08:00 04/25/24 09:31 Temperature 97.9 F Temperature Source Tympanic Pulse Rate 65 Respiratory Rate 18 Blood Pressure 160/61 H Blood Pressure Mean 94 Blood Pressure Location Right Arm Blood Pressure Position Sitting O2 Sat by Pulse Oximetry 96 Oxygen Delivery Method Room Air Room Air Telemetry Type Telemetry Monitoring Telemetry Heart Rate EKG MT Interval EKG QRS Interval Telemetry Strip Reading Lab Results Lab Results: Lab Results: Last 24 Hours 04/25/24 04/25/24 05:09 05:05 WBC 10.46 H RBC 3.44 L Hgb 9.8 L Hct 31.6 L MCV 91.9 MCH 28.5 MCHC 31.0 L RDW Coeff of Afua 13.4 Plt Count 234 Immature Gran % (Auto) 0.9 Neut % (Auto) 65.3 Lymph % (Auto) 24.3 [place] % (Auto) 7.6 Eos % (Auto) 1.3 Baso % (Auto) 0.6 Neut # (Auto) 6.8 Lymph # (Auto) 2.5 [place] # (Auto) 0.8 Eos # (Auto) 0.1 Baso # (Auto) 0.1 Immature Gran # (Auto) 0.1 Sodium 138.6 Potassium 4.03 Chloride 110.5 H Carbon Dioxide 22.4 Anion Gap 9.73 BUN 22.7 H Creatinine 1.01 Estimated GFR (MDRD) 53.00 BUN/Creatinine Ratio 22.47 Glucose 123.7 H Calcium 8.47 Total Bilirubin 0.39 AST 44.8 H ALT 38.6 H Alkaline Phosphatase 119.7 Total Protein 5.42 L Albumin 2.94 L Globulin 2.48 Albumin/Globulin Ratio 1.18 Procalcitonin 16.16 H 15.95 H Additional Comments Additional Comments: I have independently reviewed and interpreted the labs/EKGs/imaging ordered during this hospital stay. I have reviewed outside records that are available in our EMR that pertain to medical stay including imaging/notes/labs from previous visits. Active Medications Active Medications: Medications Generic Name Dose Route Start Last Admin Trade Name Freq PRN Reason Stop Dose Admin Acetaminophen 650 mg 04/23/24 00:55 Acetaminophen 325 Mg Tablet PO Q4H PRN Mild Pain Amitriptyline HCl 25 mg 04/23/24 21:00 04/24/24 20:07 Amitriptyline Hcl 25 Mg Tablet PO 25 mg BEDTIME NATHAN Administration Amlodipine Besylate 5 mg 04/23/24 09:00 04/25/24 08:04 Amlodipine Besylate 5 Mg Tablet PO 5 mg DAILY NATHAN Administration Aspirin 81 mg 04/24/24 08:00 04/25/24 08:04 Aspirin 81 Mg Tab.Chew PO 81 mg DAILYWM2 NATHAN Administration Atorvastatin Calcium 40 mg 04/23/24 21:00 04/24/24 20:06 Atorvastatin Calcium 20 Mg Tablet PO 40 mg BEDTIME NATHAN Administration Bisacodyl 10 mg 04/23/24 08:19 04/24/24 20:07 Bisacodyl 10 Mg Supp.Rect RC 10 mg DAILY PRN Administration Constipation Clopidogrel Bisulfate 75 mg 04/23/24 09:00 04/25/24 08:04 Clopidogrel Bisulfate 75 Mg Tablet PO 75 mg DAILY NATHAN Administration Enoxaparin Sodium 40 mg 04/23/24 09:00 04/25/24 08:05 Enoxaparin Sodium 40 Mg/0.4 Ml Syr SUBCUT 40 mg DAILY NATHAN Administration Famotidine 40 mg 04/23/24 09:00 04/25/24 05:12 Famotidine 20 Mg Tablet PO 40 mg BIDAC2 NATHAN Administration CEFTRIAXONE/D5W 2 GM PREMIX 2 gm in 50 mls @ 100 mls/hr 04/26/24 09:00 Rocephin 2 Gm/50 Ml D5w IV 05/01/24 12:00 DAILY NATHAN Insulin Glargine 20 unit 04/23/24 17:00 04/24/24 17:20 Insulin Glargine,Hum.Rec.Anlog 100 Units/Ml SUBCUT 20 unit QPM NATHAN Administration Insulin Human Lispro 0 unit 04/23/24 08:20 04/24/24 17:16 Insulin Lispro 100 Unit/Ml Vial (3 Ml) SUBCUT 2 unit PRN PRN Administration Hyperglycemia Protocol Levothyroxine Sodium 50 mcg 04/23/24 09:00 04/25/24 05:12 Levothyroxine Sodium 50 Mcg Tablet PO 50 mcg QDAC2 NATHAN Administration Nystatin 1 applic 04/23/24 10:30 04/25/24 08:05 Nystatin 15 Gm Powder TP 1 applic BID NATHAN Administration Oxybutynin Chloride 5 mg 04/23/24 08:19 Oxybutynin Chloride 5 Mg Tablet PO Q8H PRN incontinence Oxycodone/Acetaminophen 1 tab 04/23/24 07:48 04/25/24 05:13 Oxycodone/Acetaminophen 5/325 Mg Tablet PO 1 tab Q4H PRN Administration Pain Sodium Chloride 1 syr 04/23/24 21:00 04/25/24 05:13 0.9% Sodium Chloride 10 Ml Disp.Syrin IVF 1 syr Q8HR NATHAN Administration Plan Plan: 1. Bacteremia in setting of strep agalactiae, unknown source - CT c/a/p negative for acute findings. CT lumbar spine negative. UA neg. No ports or lines. Does have left knee hardware. Echo unremarkable. Repeat blood cultures drawn 04/24, negative so far. Change vanc to rocephin. Trend procal and wbc. Per pharmacy wi ll need IV abx until next Monday. 2. Dysuria - Cont abx, UA negative 3. Acute transaminitis - Improved today. Pt does not have gallbladder 4. Hypothyroidism - Cont home meds 5. DMT2 - Cont insulin, diabetic diet, accuchecks achs. 6. Hypertension - Cont home meds 7. Hyperlipidemia - Cont home meds DVT Prophylaxis: Lovenox Dispo: Plan to transition to swingbed tomorrow for IV abx. Review Statement Review Statement: I have personally discussed and reviewed the patient's visit/currently labs/imaging/decision making with Dr. Costa, my supervising attending. Greater that 50 minutes spent with patient, 50% of the time spent with this patient was devoted to counseling and coordination of care.
--- NOTE | 2024-04-25 12:47 | ECHO2D ---
Date of Exam: 04/24/2024 Room #: 112 Ordering Physician: DR. PEÑALOZA ( PCP), Dora JOHNSTON APRN (HOSPITALIST) Reason for Echo: HYPERTENSION, BACTEREMIA UNKNOWN SOURCE M-Mode Normal Adult Results LV Dimensions Normal Adult Results AoV Opening excursions >1.6 >1.6 LVEDD-base- 3.5-5.8 3.1 Ao root dimensions 2.0-3.7 3.7 LVESD-base- 3.1-4.6 L. Atrium dimensions 1.9-3.8 4.5 Post. Wall thickness 0.8-1.1 1.2 IV septum (thickness) 0.7-1.2 1.2 Post. Wall excursion 0.72-1.3 NORMAL Septal motion NORMAL Systolic motion R. Ventricular cavity 1.5-2.0 NORMAL LVEF 60% >60% Paradoxical septal wall motion NORMAL 2-D : ENLARGED LEFT ATRIAL CAVITY OTHERWISE NORMAL. 2-D M Mode Echocardiogram was performed using apical four chamber and left parasternal long and short axis views. Mitral, tricuspid and aortic valves appear to be normal. Contractility of the left ventricle seems to be normal, so is the cavity size. ENLARGED LEFT ATRIAL CAVITY. Aortic root appears to be normal. There is no pericardial effusion. There is no thrombus noted in the left ventricle or left atrial cavity. M-MODE: MV: NORMAL AV: NORMAL TV: NORMAL PV: NORMAL CHAMBER SIZE: ENLARGED LEFT ATRIAL CAVITY SIZE. WALL MOTION: NORMAL PERICARDIUM: NORMAL INTERPRETATION: 1. LEFT VENTRICULAR HYPERTROPHY WITH ENLARGED LEFT ATRIAL CAVITY. 2. VALVES NORMAL. 3. NORMAL LEFT VENTRICLE SIZE AND LEFT VENTRICULAR CONTRACTILITY. MTDD
[2024-04-25 17:55] VITALS: RESP 18
[2024-04-25] MEDS: NYSTATIN ORAL SUSP PO SCH (20:46)
[2024-04-26 05:21] VITALS: BP 179/90; PULSE 65; TEMP 98
[2024-04-26 05:37] LABS: BASOPHILS # (AUTO) 0.1 K/uL (0-0.2); BASOPHILS % (AUTO) 0.6 % (0.0-3.0); EOSINOPHILS # (AUTO) 0.7 K/ul (0.0-0.7); EOSINOPHILS % (AUTO) 8.3 % (0.0-7.0); HEMATOCRIT 30.8 % (37.0-47.0); HEMOGLOBIN 9.7 g/dl (12.0-16.0); IMMATURE GRANULOCYTE # (AUTO) 0.1 (0.0-1.0); IMMATURE GRANULOCYTE % (AUTO) 1.5 % (0.0-5.0); LYMPHOCYTES # (AUTO) 3.1 K/uL (0.60-3.4); LYMPHOCYTES % (AUTO) 34.9 (10.0-50.0); MEAN CORPUSCULAR HEMOGLOBIN 28.5 pg (27.0-31.0); MEAN CORPUSCULAR HGB CONC 31.5 (31.8-35.4); MEAN CORPUSCULAR VOLUME 90.6 fl (81.0-99.0); MONOCYTES # (AUTO) 0.7 K/uL (0.4-2.0); NEUTROPHILS # (AUTO) 4.2 K/ul (2.0-6.9); NEUTROPHILS % (AUTO) 46.7 % (42.2-75.2); PLATELET COUNT 251 10^3/uL (140-440); RDW COEFFICIENT OF VARIATION 13.2 % (11.6-14.8); WHITE BLOOD COUNT 8.92 K/ul (4.6-10.2)
[2024-04-26 05:54] LABS: ALANINE AMINOTRANSFERASE 36.4 U/L (0-35); ALBUMIN 3.06 g/dL (3.5-5.0); ASPARTATE AMINO TRANSFERASE 34.2 U/L (14-36); BILIRUBIN,TOTAL 0.46 mg/dL (0.2-1.3); BLOOD UREA NITROGEN 20.4 mg/dL (7-17); CALCIUM 8.47 mg/dL (8.4-10.2); CARBON DIOXIDE 23.2 mmol/L (22-30.0); CHLORIDE 109.1 mmol/L (98-107); CREATININE 1.06 mg/dL (0.60-1.30); GLUCOSE 115.3 mg/dL (74-106); POTASSIUM 4.07 mmol/L (3.5-5.1); SODIUM 138.4 mmol/L (134.5-145); TOTAL PROTEIN 5.59 g/dL (6.3-8.2)
[2024-04-26] MEDS: ROCEPHIN 2 GM/50 ML D5W 2 GM/50 ML BAG IV SCH (08:28)
--- NOTE | 2024-04-26 09:44 | DCSUM ---
Admission Date Admission Date: 04/23/24 Discharge Date Discharge Date: 04/26/24 Admission Diagnosis Admission Diagnosis: 1. Bacteremia in setting of strep agalactiae, unknown source Discharge Diagnosis Discharge Diagnosis: 1. Bacteremia in setting of strep agalactiae, unknown source 2. Dysuria resolving 3. Acute transaminitis resolved 4. Hypothyroidism 5. DMT2 6. Hypertension 7. 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 She also had one episode of vomiting. She and were concerned for a UTI as she has struggled with them in the past. However UA negative. CT c/a/p negative for acute findings. However wbc 25. Patient was admitted for further work up. Blood cultures obtained and she was given rocephin. Today patient's wbc count has worsened to 33. Blood culture positive for gram positive cocci. Procal 22. 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 She does complain of new low back pain, states it is very tender. Denies rashes. No ports. Has hx of left knee replacement. Large scar from past gangrene infection of left lateral leg well he aled, no erythema or drainage. No open wounds. Repeat CT of c/a/p but with contrast done today and negative. CT lumbar spine w/ contrast also negative. Hospital Course Subjective: CT c/a/p with contrast and ct lumbar spine w/ constrast negative. UA negative. Echo unremarkable. Labs improved, wbc normalized and procal trending down. Patient has been afebrile. No new ailments. Unknown source of bacteremia. Initial cultures positive for GBS, changed vanc to rocephin. Per pharmacy, recommend 10 total days of IV rocephin. Repeat cultures negative x24 hours so far. Pt has been working with therapy. Plan to transition to [facility] today. Patient and cannot do antibiotics at home and they cannot transport daily for iv abx outpatient. Appearance: Pleasant, No Apparent Distress and Alert HEENT: MMM and Supple CVS: Other (rrr) Abdomen: Soft, Non-Tender and No Distention Respiratory: No Accessory Muscle Use Extremities: No Edema Vital Signs: Most Recent Vital Signs Temperature 98.0 F 04/26/24 05:20 Temperature Source Temporal Artery Scan 04/26/24 05:20 Temperature Source Oral 04/22/24 21:17 Pulse Rate 65 04/26/24 05:20 Respiratory Rate 18 04/26/24 05:20 Blood Pressure 179/90 H 04/26/24 05:20 Blood Pressure Mean 119 04/26/24 05:20 Blood Pressure Left Arm 112/40 04/23/24 01:32 Blood Pressure Location Right Arm 04/26/24 05:20 Blood Pressure Position Supine 04/26/24 05:20 O2 Sat by Pulse Oximetry 97 04/26/24 05:20 Oxygen Delivery Method Room Air 04/26/24 05:20 Height 5 ft 9 in 04/23/24 08:28 Weight 225 lb 6 oz 04/23/24 08:28 Telemetry Type Remote Telemetry 04/26/24 07:00 Telemetry Monitoring Continues 04/26/24 07:00 Telemetry Heart Rate 67 04/26/24 07:00 Telemetry SPO2 98 09/06/23 07:00 EKG VA Interval 0.19 04/26/24 07:00 EKG QRS Interval 0.08 04/26/24 07:00 Telemetry Strip Reading NSR 04/26/24 07:00 Imaging: EXAM: CHEST CT WITHOUT CONTRAST HISTORY: Shortness of breath. TECHNIQUE: CT acquisition of the chest from the thoracic inlet to the upper abdomen without IV contrast administration. COMPARISON: Chest radiograph 07/14/2023. FINDINGS: Lines, Tubes, Devices: None. Lung Parenchyma, Pleura, and Airways: Central airways are patent. Mild scarring or atelectasis in the lower lobes. A few scattered calcified granulomas. No acute airspace consolidation or suspicious mass. No pleural effusion. Thoracic Inlet, Mediastinum, and Lizy: Thyroid gland is normal. Calcified granulomas in mediastinal lymph nodes. Heart, Vessels, and Pericardium: Extensive atherosclerotic calcifications of the aorta heavy coronary calcifications. 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 Aortic valve calcifications. No cardiomegaly. No pericardial effusion. Bones and Soft Tissues: No acute osseous abnormality. Multilevel degenerative spondylosis and mild scoliosis. Severe degenerative change of the shoulders. Unchanged chronic compression deformity of vertebral body with mild height loss. Upper Abdomen: Status post cholecystectomy. Calcified granulomas in the spleen. Bilateral renal cortical thinning and atrophy. Moderate hiatal hernia. IMPRESSION: No acute finding in the chest. ASCVD. Moderate hiatal hernia. EXAM: CT OF THE ABDOMEN AND PELVIS WITHOUT CONTRAST History: Lower abdomen pain Technique: 2.[address] of the abdomen and pelvis without contrast FINDINGS: The lung bases are clear. No significant liver abnormality. The adrenals, pancreas and spleen are unremarkable. Small hiatus hernia. Prior cholecystectomy. Kidneys and proximal collecting system are unremarkable. The appendix is normal. Bowel loops demonstrate normal caliber. No inflamatory change seen in the mesentery or retroperitoneum. Atherosclerotic calcification of the aorta without aneurysm. Prior hysterectomy. Normal pelvic genitourinary structures otherwise. Pelvic bowel loops are unremarkable. No inflammatory change in the pelvic fat. No acute abnormality of the abdominal or pelvic skeleton. Impression: 1. No inflammatory process, bowel or urinary obstruction 2. Small hiatus hernia without complication EXAM: CT CHEST WITH CONTRAST HISTORY: Bacteremia COMPARISON: CT chest 04/22/2024 TECHNIQUE: Serial axial images of the chest were obtained after 100 ml of Omnipaque IV contrast was administered. These were obtained from the lung apices to the upper abdomen. FINDINGS: The thyroid is normal. Visualized vessels demonstrate mild atherosclerotic disease with a retropharyngeal right subclavian artery. There is no dissection, aneurysm or stenosis. The heart is normal in size without pericardial effusion. There is no mediastinal, hilar or axillary pathologically enlarged lymph nodes. Small hiatal hernia is present. There is no pneumothorax or pleural effusion. There is minimal dependent bilateral atelectasis. There is no consolidation, nodule or mass. The airways are patent. Limited views of the soft tissues in the upper abdomen are better evaluated on same day CT abdomen pelvis. The osseous structures demonstrate degenerative disease of the shoulders and spine. IMPRESSION: 1. No acute cardiopulmonary process with minimal dependent atelectasis. 2. Atherosclerotic disease with aberrant right subclavian. 3. Small to moderate hiatal hernia. EXAM: CT ABDOMEN PELVIS WITH INTRAVENOUS CONTRAST 04/23/2024. SAGITTAL AND CORONAL REFORMATTED OBTAINED HISTORY: Bacteremia COMPARISON: 04/22/2024 FINDINGS: Moderate sized hiatal hernia. The liver shows no acute abnormality. The gallbladder has been removed. The adrenal glands and kidneys show no acute abnormality. There is no hydronephrosis. The spleen and pancreas show no acute abnormality. There is no bowel obstruction. Normal appendix. Unremarkable urinary bladder. No free air. No free fluid. No acute osseous abnormality. Stable depression at the superior endplate of T11 and T12. IMPRESSION: 1. Moderate sized hiatal hernia 2. Status post cholecystectomy. 3. No urinary or bowel obstruction and normal appendix. 4. No acute inflammatory process identified within the abdomen or pelvis. EXAM: CT LUMBAR SPINE WITHOUT CONTRAST. HISTORY: Point tenderness of the lumbar spine. Bacteremia. COMPARISON: 05/06/2022. Abdominal CT 1 day prior. TECHNIQUE: Multiple axial images of the lumbar spine were obtained without intravenous contrast. Images were reformatted in the sagittal and coronal planes. FINDINGS: There is a 0.2 cm retrolisthesis L1 on L2. Left convex curvature of the thoracolumbar junction noted. Stable mild T12 superior endplate compression deformity. There is no acute fracture of the lumbar spine. There is severe loss of disc height along the right side of L1-2 and moderate loss of disc height along the left side of L4-5. No osseous destruction identified. No paraspinal fluid collections or soft tissue gas identified. T12-L1: Disc osteophyte formation and facet arthropathy with moderate right neural foraminal narrowing. L1-2: Disc osteophyte formation and facet arthropathy with severe right and moderate left neural foraminal narrowing. L2-3: Broad-based disc bulge, facet arthropathy thickening of ligamentum flavum with mild central canal stenosis and mild to moderate right and moderate to severe left neural foraminal narrowing. L3-4: Disc osteophyte formation, facet arthropathy thickening along the common flavum with mild moderate central canal stenosis and severe right and mild to moderate left neural foraminal narrowing. L4-5: Disc osteophyte formation, facet arthropathy thickening of ligamentum flavum with mild central canal stenosis and severe left and moderate to severe right neural foraminal narrowing. L5-S1: Disc osteophyte formation and facet arthropathy with mild to moderate right and moderate left neural foraminal narrowing. Atherosclerotic calcifications present. IMPRESSION: 1. No acute abnormality of the lumbar spine. No CT evidence for osteomyelitis/diskitis. 2. Severe degenerative changes as described Date of Exam: 04/24/2024 Room #: 112 Ordering Physician: DR. PEÑALOZA ( PCP), Dora JOHNSTON APRN (HOSPITALIST) Reason for Echo: HYPERTENSION, BACTEREMIA UNKNOWN SOURCE M-Mode Normal Adult Results LV Dimensions Normal Adult Results AoV Opening excursions >1.6 >1.6 LVEDD-base- 3.5-5.8 3.1 Ao root dimensions 2.0-3.7 3.7 LVESD-base- 3.1-4.6 L. Atrium dimensions 1.9-3.8 4.5 Post. Wall thickness 0.8-1.1 1.2 IV septum (thickness) 0.7-1.2 1.2 Post. Wall excursion 0.72-1.3 NORMAL Septal motion NORMAL Systolic motion R. Ventricular cavity 1.5-2.0 NORMAL LVEF 60% >60% Paradoxical septal wall motion NORMAL 2-D : ENLARGED LEFT ATRIAL CAVITY OTHERWISE NORMAL. 2-D M Mode Echocardiogram was performed using apical four chamber and left parasternal long and short axis views. Mitral, tricuspid and aortic valves appear to be normal. Contractility of the left ventricle seems to be normal, so is the cavity size. ENLARGED LEFT ATRIAL CAVITY. Aortic root appears to be normal. There is no pericardial effusion. There is no thrombus noted in the left ventricle or left atrial cavity. M-MODE: MV: NORMAL AV: NORMAL TV: NORMAL PV: NORMAL CHAMBER SIZE: ENLARGED LEFT ATRIAL CAVITY SIZE. WALL MOTION: NORMAL PERICARDIUM: NORMAL INTERPRETATION: 1. LEFT VENTRICULAR HYPERTROPHY WITH ENLARGED LEFT ATRIAL CAVITY. 2. VALVES NORMAL. 3. NORMAL LEFT VENTRICLE SIZE AND LEFT VENTRICULAR CONTRACTILITY. Lab Results Last 24 Hours: 04/26/24 05:07 WBC 8.92 RBC 3.40 L Hgb 9.7 L Hct 30.8 L MCV 90.6 MCH 28.5 MCHC 31.5 L RDW Coeff of Afau 13.2 Plt Count 251 Immature Gran % (Auto) 1.5 Neut % (Auto) 46.7 Lymph % (Auto) 34.9 [place] % (Auto) 8.0 Eos % (Auto) 8.3 H Baso % (Auto) 0.6 Neut # (Auto) 4.2 Lymph # (Auto) 3.1 [place] # (Auto) 0.7 Eos # (Auto) 0.7 Baso # (Auto) 0.1 Immature Gran # (Auto) 0.1 Sodium 138.4 Potassium 4.07 Chloride 109.1 H Carbon Dioxide 23.2 Anion Gap 10.17 BUN 20.4 H Creatinine 1.06 Estimated GFR (MDRD) 50.00 BUN/Creatinine Ratio 19.24 Glucose 115.3 H Calcium 8.47 Total Bilirubin 0.46 AST 34.2 ALT 36.4 H Alkaline Phosphatase 111.0 Total Protein 5.59 L Albumin 3.06 L Globulin 2.53 Albumin/Globulin Ratio 1.20 Procalcitonin 8.78 H Discharge Instructions Discharge Planning: Discharge Planning > [address] [place]. Discharge Medications: Medications at Discharge (Home Meds & RX) Discharge Plan Discharge Discharge Orders: Discharge Patient (ONCE); Ordered 04/26/24 Ordered By: RADHA JOHNSTON Activity Restrictions/Additional Instructions: DISCHARGE TO [facility] Patient Disposition: DISCH W/I HOSP TO [facility] Prescriptions: Continued acetaminophen 325 mg Tablet 500 mg PO BID PRN (Reason: Analgesia) levothyroxine 50 mcg capsule 50 mcg PO DAILY amitriptyline 25 mg tablet 25 mg PO BEDTIME amlodipine 2.5 mg tablet 5 mg PO DAILY aspirin 81 mg tablet,chewable 81 mg PO DAILY bisacodyl [Dulcolax (bisacodyl)] 10 mg suppository 10 mg [place] DAILY PRN (Reason: constipation) famotidine [Acid Controller] 20 mg tablet 40 mg PO BID insulin lispro [Humalog KwikPen Insulin] 100 unit/mL insulin pen 1 sliding scale dose subcut DIRECTED Rx Instructions: Inject as per Sliding scale 150 - 199 = 2 units 200 - 299 = 3 units 300 - 349 = 4 units 350 - 400 = 6 units Over 400 call MD SubQ before meals for DM2 insulin glargine [Lantus U-100 Insulin] 100 unit/mL solution 20 unit subcut BID atorvastatin [Lipitor] 40 mg tablet 40 mg PO BEDTIME nystatin 100,000 unit/gram cream 1 applic topical BID Rx Instructions: Apply to groin, perineal area topically every day and azure architect for antibiotic oxybutynin chloride 5 mg tablet 5 mg PO Q8H PRN (Reason: stress incontinence) oxycodone-acetaminophen 5-325 mg tablet 1 tab PO Q4H PRN (Reason: pain) clopidogrel [Plavix] 75 mg tablet 75 mg PO DAILY Santyl External Ointment 250 UNIT/GM (Collagenase) ointment See Rx Instructions topical DAILY Rx Instructions: 1 Application topically daily; Apply to bilateral heel wounds topically every azure architect for wound care. Apply nickel thick layer, cover w/ saline moistened gauze, and dry roll gauze dressing. cholecalciferol (vitamin D3) 25 mcg (1,000 unit) capsule 25 mcg PO DAILY Did you review [place] [employer] REPRES[employer]IVE for ALL controlled substances?: Yes Discussed opioids are addictive and Narcan is available by prescription or from pharmacy.: Yes Condition: Stable
== END 2024-04-26 10:25 | disposition swing bed (61) | DRG 948 ==
LOC: MEDSURG B 21:09 → ED 21:09 → MEDSURG B 04-23 01:40
PROVIDERS: ADMIT Hospitalist; ATTEND Physician Assistant
DX: E78.5 Hyperlipidemia, unspecified; I10 Essential (primary) hypertension; R53.1 Weakness; E11.9 Type 2 diabetes mellitus without complications; R78.81 Bacteremia; E03.9 Hypothyroidism, unspecified; Z79.4 Long term (current) use of insulin